=== PATIENT | male | born 1970 | race Caucasian/White ===

== ENCOUNTER → 2017-09-29 16:51 | Outpatient (CLI) | payer BC, SELFPAY ==
[2017-09-29 17:28] LABS: Absolute Lymphocyte Count 1.12 X10^3/ul (0.83-4.51); Absolute Neutrophil Count 4.7 X10^3/uL (2.0-7.7); Basophil# 0.04 X10^3/uL; Basophil% 0.6 % (0-1); Hematocrit 41.4 % (40-54); Hemoglobin 13.9 g/dl (13.0-16.5); Lymphocyte # 1.12 X10^3/ul (4.0); Lymphocyte % 17.9 % (19-41); Mean Corp Hgb Conc 33.6 g/gl (32-36); Mean Corpuscular Hgb 29.5 pg (27.0-32.0); Mean Corpuscular Volume 87.9 fL (80-94); Monocyte# 0.43 X10^3/uL; Monocyte% 6.9 % (0-10); Neutrophil # 4.66 X10^3/uL (2.7-7.7); Neutrophil % 74.4 % (47-70); Platelet Count 209 K/mm3 (150-450); RBC Distribution Width CV 13.5 % (11.6-14.6); Red Blood Count 4.71 M/mm3 (4.6-6.2); White Blood Count 6.3 K/mm3 (4.4-11.0)
[2017-09-29 17:36] LABS: POSITIVE COUNT NO; POSITIVE DIFFERENTIAL NO; POSITIVE MORPHOLOGY NO
[2017-09-29 18:04] LABS: AST(SGOT) 19 U/L (15-37); Alanine Aminotransfer ALT/SGPT 34 U/L (16-61); Albumin, Serum 4.1 g/dL (3.2-5.0); Alkaline Phosphatase 79 U/L (45-117); Bilirubin, Direct 0.07 mg/dL (0.00-0.30); Globulin 3.4 g/dL (2.2-4.2); Protein, Total 7.5 g/dL (6.4-8.2)
== END ==
PROVIDERS: Family Provider Family Medicine; PCP Family Medicine; Visit Provider Psychiatry & Neurology Neurology
DX: G40.909 Epilepsy, unspecified, not intractable, without status epilepticus (principal)
CPT/HCPCS: 36415; 80076; 85025

== ENCOUNTER → 2018-07-21 06:28 | Outpatient (CLI) | payer BC, SELFPAY ==
--- NOTE | 2018-07-21 12:38 | NEURO ---
NCS and/or EMG Patient Report Ordering Doctor: Ken Hills Jr. DATE OF SERVICE: 07/21/18 Ministerio Clark is a 48-year-old male presents for electrodiagnostic testing of the lower limbs. He reports progressively worsening numbness tingling and burning in both feet, worse on the right side. Electrodiagnostic findings: Right common peroneal motor nerve demonstrates prolonged distal latency with reduced amplitude and reduced conduction velocity. Left common peroneal motor nerve demonstrates prolonged distal latency with reduced amplitude and reduced conduction velocity. Tibial motor conduction velocity is reduced bilaterally. Sural nerve demonstrates prolonged distal latency bilaterally with reduced conduction velocity. Reduced superficial peroneal conduction velocity bilaterally. Plantar responses are absent. Prolonged H reflex bilaterally significant prolonged F waves bilaterally, more so on the right side. Needle EMG testing demonstrates no evidence of acute denervation with normal motor unit action potentials. Next Electrodiagnostic impression: This is an abnormal study in the lower limbs. 1. 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 Based on significantly reduced conduction velocities noted in both motor and sensory nerves, consideration may be given for [id number] type I based on evidence of demyelination. 2. No electrodiagnostic evidence for lumbosacral radiculopathy. If there are any further questions, please do not hesitate to contact me
--- NOTE | 2018-07-21 12:46 | NEURO_ITS ---
NCS and/or EMG Patient Report Ordering Doctor: Ken Hills Jr. DATE OF SERVICE: 07/21/18 Ministerio Clark is a 48-year-old male presents for electrodiagnostic testing of the lower limbs. He reports progressively worsening numbness tingling and burning in both feet, worse on the right side. Electrodiagnostic findings: Right common peroneal motor nerve demonstrates prolonged distal latency with reduced amplitude and reduced conduction velocity. Left common peroneal motor nerve demonstrates prolonged distal latency with reduced amplitude and reduced conduction velocity. Tibial motor conduction velocity is reduced bilaterally. Sural nerve demonstrates prolonged distal latency bilaterally with reduced conduction velocity. Reduced superficial peroneal conduction velocity bilaterally. Plantar responses are absent. Prolonged H reflex bilaterally significant prolonged F waves bilaterally, more so on the right side. Needle EMG testing demonstrates no evidence of acute denervation with normal motor unit action potentials. Next Electrodiagnostic impression: This is an abnormal study in the lower limbs. 1. 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 Based on significantly reduced conduction velocities noted in both motor and sensory nerves, consideration may be given for [id number] type I based on evidence of demyelination. 2. No electrodiagnostic evidence for lumbosacral radiculopathy. If there are any further questions, please do not hesitate to contact me
== END ==
PROVIDERS: Family Provider Family Medicine; PCP Family Medicine; Referring Provider Family Medicine; Visit Provider Family Medicine
DX: G62.9 Polyneuropathy, unspecified (principal)
CPT/HCPCS: 95886; 95912

== ENCOUNTER → 2018-10-05 16:26 | Outpatient (CLI) | payer BC, SELFPAY ==
[2018-10-05 17:25] LABS: Vitamin B12 554 pg/mL (211-911)
[2018-10-05 17:31] LABS: Homocysteine 11.1 umol/L (3.2-10.7)
[2018-10-07 15:55] LABS: Albumin 3.9 g/dL (2.9-4.4); Alpha-1-Globulins 0.2 g/dL (0.0-0.4); Alpha-2-Globulins 0.7 g/dL (0.4-1.0); Gamma Globulin 0.9 g/dL (0.4-1.8); Immunoglobulin G 930 mg/dL (700-1600); Immunoglobulin M 28 mg/dL (20-172); PROEL- TOTAL PROTEIN 6.5 g/dL (6.0-8.5)
[2018-10-08 12:31] LABS: Immunoglobulin A 41 mg/dL (90-386)
== END ==
PROVIDERS: Family Provider Family Medicine; PCP Family Medicine; Referring Provider Psychiatry & Neurology Neurology; Visit Provider Psychiatry & Neurology Neurology
DX: A69.22 Other neurologic disorders in Lyme disease (principal); G40.909 Epilepsy, unspecified, not intractable, without status epilepticus; Z68.34 Body mass index [BMI] 34.0-34.9, adult
CPT/HCPCS: 36415; 82607; 82746; 82784; 83090; 83921; 84165; 86334

== ENCOUNTER 2020-01-08 08:16 | Emergency (ER) | payer BC, SELFPAY ==
[2020-01-08 08:17] VITALS: BP 130/103; PULSE 109; RESP 17; TEMP 36.2; O2SAT 98; BMI 33.0
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
[2020-01-08 08:39] VITALS: BP 155/108; PULSE 97; RESP 18
[2020-01-08 08:40] VITALS: BP 155/108; PULSE 97; RESP 18; TEMP 36.2; O2SAT 98
== END 2020-01-08 08:57 | disposition home or self-care (01) ==
LOC: ED 08:46
PROVIDERS: Emergency Provider Emergency Medicine; PCP Family Medicine
DX: L03.211 Cellulitis of face (principal); K08.89 Other specified disorders of teeth and supporting structures
CPT/HCPCS: 99282

== ENCOUNTER 2020-02-02 12:38 | Emergency (ER) | payer BC, SELFPAY ==
[2020-02-02 12:40] VITALS: BP 157/118; PULSE 131; RESP 14; TEMP 37.3; O2SAT 98; BMI 32.8
--- NOTE | 2020-02-02 13:13 | ED.DCSUM_ITS ---
History of Present Illness Chief Complaint: Mental Health Informant: Patient Narrative: Patient presents for mental health evaluation. He reports that a month ago he found out that his has been cheating on him for the past 6 months. They are currently undergoing a divorce after being for 33 years. He states that he has not been able to eat or sleep. He is dropped 20 pounds. He reportedly was started on Prozac and a sleep aid a month ago by his PCP. His gmkhha-il-kgz came to check on him today and brought him to the emergency room. He denies being suicidal but states he does not know how to cope with this. - Past Medical History (1) Epilepsy Status: Chronic Past Medical History - Allergies and Home Meds Allergies/Adverse Reactions: Allergies ibuprofen [From Motrin] Allergy (Verified 02/02/20 12:40) Angioedema naproxen [From Naprosyn] Allergy (Verified 02/02/20 12:40) Angioedema Primary Care Physician: Tobias,Victoria [GROUP OF PHYSICIANS] - Prior records reviewed: Yes Surgical History: no surgical history Smoking Status: Former smoker Review of Systems General: Denies: Chills, Fever Eyes: Denies: Visual changes - bilaterally ENT: Denies: Bilateral ear pain Cardiovascular: Denies: Chest pain Respiratory: Denies: Dyspnea Gastrointestinal: Denies: Abdominal pain, Vomiting Skin: Denies: Wounds Neurological: Denies: Headache Psych: Reports: Depression, Anxiety. Denies: Suicidal thoughts Hematologic: Denies: Easy bruising, Easy bleeding Allergy: Denies: Uticaria Physical Exam Vital Signs/Narrative: Vital Signs Temp Pulse Resp BP Pulse Ox 02/02/20 12:40 99.2 F H 131 H 14 157/118 H 98 Inital Vital Signs reviewed: Yes General: Well nourished, Well developed Head: Normocephalic ENT: Moist mucous membranes Neck: Supple Cardiovascular: Regular rate, Regular rhythm Respiratory: No distress, CTA bilaterally Abdomen: Soft, Nontender Neurological: Alert, Oriented x3 Psychological: Tearful, Agitated, - - Patient denies suicidal or homicidal ideation. Diagnostic/Tx/Re-eval - Medical Decision Making Patient was seen by Al from social work. She spent significant time counseling with him. He does have an appointment at the counseling center in 20 minutes will be discharged so he can make that appointment. He continues to deny suicidal or homicidal ideation. He is in at least 2 different kinds of counseling currently. ED Disposition - Plan for ED Patient: Disposition: Home or Assisted Living Diagnosis: Anxiety Instructions: ED Stress React Referrals: Counseling,Center [GROUP OF PHYSICIANS] -
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
[2020-02-02 14:44] VITALS: BP 138/99; PULSE 96; RESP 16; O2SAT 96
== END 2020-02-02 14:46 | disposition home or self-care (01) ==
PROVIDERS: Emergency Provider Emergency Medicine; PCP Family Medicine
DX: F41.9 Anxiety disorder, unspecified (principal); Z87.891 Personal history of nicotine dependence
CPT/HCPCS: 99282

== ENCOUNTER 2020-10-15 09:00 | Outpatient (RCR) | payer BC, SELFPAY ==
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
--- NOTE | 2020-10-15 10:10 | BH.SGPN.GN ---
Behaviors/Verbalizations/Mental Status: [] Eye contact is good. Motor activity is appropriate. Appearance is neat. Speech is Appropriate. Mood is depressed. Affect is flat. Thoughts are linear and logical. No evidence of psychosis. Client Response/Progress/Benefit: [] Pt was an active participant in group discussion and activity. Attentive during psychoeducation. Pt and peers provided examples of pitfalls or setbacks that people can fall into which impact mental health which included; triggers, fear, cognitive distortions, isolating, self-pity, avoidance, and pushing support away. During experiential activity pt along with peers identified several other pitfalls associated with mental health which included; poor communication, assumptions, lack of awareness, negative self-talk, anger, personalizing, and ruminating. Benefited from group by increasing awareness of pitfalls which can impact mental health. Pt will continue in IOP to maintain safety, increase health coping skills, and improve functioning to return to work. Narrative Note: []
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
--- NOTE | 2020-10-15 12:39 | BH.MTP_ITS ---
[facility] Treatment Plan - Patient Information Program Physician:: Lauren Claros Primary Therapist:: Madan Martinez - Psychiatric Diagnoses Psychiatric Diagnoses:: MDD, F33.2 Diagnosis Code(s):: F33.2 - Estimated LOS Estimated LOS (in weeks):: 6 Problem/Goal #1 - Problem/Goal #1 Stated Goal:: Client will increase mood stability, reduce depression, and reduce suicidal thoughts due to MDD through the Intensive Outpatient Program as evidenced by reduction of scores on DSM-5 crossing cutting scales for depression. Description of Barriers: ongoing divorce proceedings, stressful work environment, limited support. Functional Impact: Fleeting suicidal ideations in the past year have led to several gestures and plans to kill self. Depression impacting work. - Objectives Objective #1 Stated Objective: Client will reduce depression, suicidal thinking, and impulsivity by identifying 2-3 triggers for mood changes and at least 3 ways to cope with these. Interventions: Through individual and group counseling will help client identify triggers and warning signs of depression and will teach client various coping skills to manage client?s symptoms and give client tangible resources to use to regulate emotions. Discharge Criteria: Identify 3 triggers to depressive episodes and 3 strategies to coping with these triggers. Target Date: 11/26/20 Review Date: 11/14/20 Objective #2 Stated Objective: Client will identify and replace 2-3 negative thinking patterns or mistaken beliefs that reinforce depressive symptoms, self-hate, and negative self-talk. Interventions: Through individual and group counseling will help client identify distorted, negative beliefs about self and replace with more realistic, affirmative messages. Therapist will use CBT to help client increase insight to the connection between thoughts, emotions, and behaviors. Therapist will encour age client to practice thought challenging. Discharge Criteria: Identify 2-3 core mistaken beliefs and be able to demonstrated how to challenge these beliefs. Target Date: 11/26/20 Review Date: 11/14/20 Problem/Goal #2 - Problem/Goal #2 Stated Goal:: Client will reduce overall frequency, intensity, and duration of anxiety to improve functioning as evidended by reduction of scores on DSM-5 Crosscutting scales for anxiety. Description of Barriers: ongoing divorce proceedings, stressful work environment, limited support. Functional Impact: Ruminations and impact toxic relationship with is one or the primary triggers to worsening anxiety and decreased functioning. - Objectives Objective #1 Stated Objective: Client will identify triggers to ruminations on past relationship and 2 strategies to effectively manage cognitive distortions which exacerbate ruminations. Interventions: Therapist will assist client in exploring what triggers anxiety and teach client coping strategies to effectively manage anxiety symptoms. Discharge Criteria: Will be aware of 2-3 triggers to ruminations and 2 str ategies to cope Target Date: 11/14/20 Review Date: 11/26/20
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
--- NOTE | 2020-10-16 09:00 | BH.SGPN.GN ---
Behaviors/Verbalizations/Mental Status: []Client alert and oriented, neatly dressed and groomed. Eye contact good. Motor activity appropriate. Speech within normal limits. Affect constricted, mood depressed. Thoughts linear, logical, no signs of hallucinations or delusions. Reviewed client?s symptom tracker, no risk for suicidal ideation, plan, or intent as of 10/16/20 Client Response/Progress/Benefit: []Client responded well to session, attentive and receptive to feedback. Client reports feeling anxious this morning. Client shared he has a goal to go to [employer] this afternoon which gives client anxiety, but client recognizes it is good for him to go. Client stated not much has changed since his first day, but he believes IOP will be helpful. Client reported that he practiced self-care yesterday by taking a nap. Client describes himself as a workaholic so taking a nap is positive for client. Receptive to feedback and positive support from peers. Appeared to benefit from connecting with others and reflecting on self-care. Progress limited as client recently started IOP. Will continue IOP tx to prevent decompensation, increase healthy coping skills, and improve daily functioning. Narrative Note: []
--- NOTE | 2020-10-16 10:05 | BH.SGPN.GN ---
Behaviors/Verbalizations/Mental Status: [] Eye contact is good. Motor activity is appropriate. Appearance is casual. Speech is Appropriate. Mood is depressed. Affect is flat. Thoughts are linear and logical. No evidence of psychosis. Client Response/Progress/Benefit: [] Pt was an active participant in group discussion and activity. Attentive during psychoeducation. Group identified the benefits of making changes or taking action on their mental wellness which included; increased confidence, healthier relationships, improved emotional health, reduction of anxiety, increased awareness, and improved recognition of triggers. Pt stated that the 3 biggest obstacles for him to taking action or making changes in his life are anger, being passive, and worry. Increased awareness of importance of taking action in mental health and obstacles that keep them from taking action. Will continue in IOP to maintain safety, increase health coping skills, and improve functioning to return to work. Narrative Note: []
--- NOTE | 2020-10-16 11:10 | BH.SGPN.GN ---
Behaviors/Verbalizations/Mental Status: []Client alert and oriented, casually dressed and appropriately groomed. Eye contact good. Motor activity appropriate. Speech within normal limits. Affect constricted, mood depressed. Thoughts linear, logical, no signs of hallucinations or delusions. Client Response/Progress/Benefit: []Client responded well to session, taking notes and participating in worksheet discussion. Client set a goal to gain control over his hyperfocus on blaming. Client wants to be able to work on this by learning how to have self-forgiveness and how to forgive others. Client stated he believes starting to journal and talk with his best friend are things that can help him accomplish this goal. Worked with group to brainstorm ideas to help increase follow through of goal. Appeared to benefit from identifying a small goal to benefit mental health. Will continue IOP tx to prevent decompensation, increase healthy coping skills, and improve daily functioning. Narrative Note: []
--- NOTE | 2020-10-17 10:05 | BH.SGPN.GN ---
Behaviors/Verbalizations/Mental Status: []Eye contact is fair. Motor activity is appropriate. Appearance is casual. Speech is Appropriate. Mood is euthymic. Affect is congruent. Thoughts are linear and logical. No evidence of psychosis. Client Response/Progress/Benefit: []Pt was an engaged participant in group discussions. Attentive during psycho-education on 4 types of conflict styles (Competing, Collaborating, Avoiding, and Accommodating). Worked with group to define conflict and identify how conflict is helpful; (allows us to grow, helps us stand up for ourselves, empowers us, helps clarify, and helps us gain clarification). With peers identified what prevents them from addressing or managing conflict which included: emotions, past experiences, fear, upbringing, what ifs, and worried how other person will react. Pt believes his conflict style is accommodating the drawbacks being needs don't get met and lowers self-esteem. Benefited from group due to increase insight and awareness of conflict, conflict styles, and obstacles to managing conflict. Pt to continue IOP to increase healthy coping, improve daily functioning and prevent decompensation. Narrative Note: []
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
[2020-10-17 10:40] VITALS: BP 132/93; PULSE 67
--- NOTE | 2020-10-17 11:08 | BH.SGPN.GN ---
Behaviors/Verbalizations/Mental Status: []Client alert and oriented, neatly dressed and groomed. Eye contact good. Motor activity appropriate. Speech within normal limits. Affect constricted, mood dysthymic. Thoughts linear, logical, no signs of hallucinations or delusions. Client Response/Progress/Benefit: []Client engaged in session AEB contributing to discussion and engaging in activity. Client did well to review current conflict style and its impact on mental health. Attentive and taking notes during discussion on strategies for more effectively managing conflict in own life. Client identified wanting to work on not avoiding conflict as this has had long-term negative impacts on client. Client wants to do this by working on not ?stonewalling? or shutting down during conflict. Appeared to benefit from learning strategies to better manage conflict. First week of IOP tx. Will continue IOP tx to prevent decompensation, learn healthy coping skills, and increase self-awareness. Narrative Note: []
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
--- NOTE | 2020-10-17 13:42 | BH.DR.ITP ---
Initial Treatment Plan Patient Information Visit Information: ADMISSION DATE: EXPECTED LOS: 4-6 weeks Problems/Symptoms Problem #1:: Depression Symptom:: Sadness, hopelessness, worthlessness, anhedonia, biological disruption of appetite and sleep, low energy, decreased concentration, passive thoughts of and passive suicidal ideation. Problem #2:: Anxiety Symptom:: Worry, rumination, panic attacks
--- NOTE | 2020-10-22 09:05 | BH.SGPN.GN ---
Behaviors/Verbalizations/Mental Status: []Client alert and oriented,neat and casually dressed and groomed. Eye contact good. Motor activity appropriate. Speech within normal limits. Affect congruent, mood depressed and anxious. Thoughts linear, logical, no signs of hallucinations or delusions. Reviewed client?s symptom tracker, no indication of suicidal ideation, plan, or intent as of this date, 10/22/20. Client Response/Progress/Benefit: []Client responded well to session, attentive and proving some input throughout, willing to process with group. Client reports feeling happy this morning. Client noted current positives include spending time with family at a cookout over the weekend and being able to reach out to his mother regarding his mental health. Discussed that although his mother is not the most understanding regarding mental health, he is glad he reached out as normally he would not. Client went on to describe current stressor as his son?s drinking behaviors and difficulties with relying on work as his only means of coping. Expressed wanting to work on improving ability to practice self-care and relaxing. Appeared to benefit from reflecting on personal positives and areas of progress, as well as the supportive group environment. Will continue IOP tx to promote skill application, continue to improve sx management, and prevent decompensation. Narrative Note: []
--- NOTE | 2020-10-22 11:15 | BH.SGPN.GN ---
Behaviors/Verbalizations/Mental Status: []Client alert and oriented, neatly dressed and groomed. Eye contact good. Motor activity appropriate. Speech within normal limits. Affect constricted, mood dysthymic. Thoughts linear, logical, no signs of hallucinations or delusions Client Response/Progress/Benefit: []Client responded well to session, taking notes and contributing throughout. Group discussed the different categories of coping skills which included distraction, emotional release, grounding, self-love, and thought challenging. Client participated in creating a coping skills ?menu? from the five categories of coping skills. Client's coping skill menu included: reading, journaling, saying positive mantras, personal hygiene, and using a thought log. Appeared to benefit from increasing repertoire of healthy coping skills. Will continue tx to prevent decompensation, increase knowledge of healthy coping skills, and combat distorted thought patterns. Narrative Note: []
--- NOTE | 2020-10-24 09:05 | BH.SGPN.GN ---
Behaviors/Verbalizations/Mental Status: [] Eye contact is good. Motor activity is appropriate. Appearance is neat. Speech is Appropriate. Mood is euthymic. Affect is full. Thoughts are linear and logical. No evidence of psychosis. Reviewed daily check in sheet and no reports of suicidal ideations or intent. Client Response/Progress/Benefit: [] Pt participated when prompted. Attentive. Daily symptom tracker notes /5 for anger and anxiety. Emotion for today is happy. Shared that he overslept yesterday and did not make it to IOP. Shared that despite that he was very productive and worked on tasks throughout the day. He noted that he was left alone with his thoughts which has a tendency to be negative however yesterday he was able to reframe and challenge certain negative automatic thoughts. States I know I'm not responsible for everything that went wrong. Progress noted per pt report as he is beginning to challenge long-held mistaken beliefs and not accept them as facts. Benefited from group support and encouragement. Will continue in IOP to maintain safety, increase healthy coping, and improve functioning to return to work. Narrative Note: []
--- NOTE | 2020-10-24 10:15 | BH.SGPN.GN ---
Behaviors/Verbalizations/Mental Status: []Eye contact is good. Motor activity is appropriate. Appearance is casual. Speech is Appropriate. Mood is depressed, agitated. Affect is congruent. Thoughts are linear and logical. No evidence of psychosis. Client Response/Progress/Benefit: [] Pt was an active participant in group discussion AEB taking notes and providing input throughout. Attentive during psychoeducation reviewing internal and external obstacles, nodded at times and expressed connecting with externalization as avoiding dealing with internal barriers. Participated in the reflection activity in which clients ana pictures depicting their current and desired reality and shared with the group. Current reality involved feeling lonely, betrayed, hurt, angry, and confused. Shared he is trying to challenge himself to trust people again but is feeling too jaded to successfully do so thus far. Indicated that his desired reality involves being more willing to use the supports and resources he has. As well as learn to love himself and better accept his mental health struggles so he can address and cope with them. Identified skills that would help move from current to desired realities would be challenging his self-talk. Benefited from group by increasing current awareness and expectations for progress. Will continue in IOP to improve mood stability, continue to promote healthy change behaviors, and further improve self-love/acceptance. Narrative Note: []
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
--- NOTE | 2020-10-25 09:00 | BH.SGPN.GN ---
Behaviors/Verbalizations/Mental Status: [] Eye contact is good. Motor activity is appropriate. Appearance is neat. Speech is Appropriate. Mood is depressed. Affect is flat. Thoughts are linear and logical. No evidence of psychosis. Reviewed daily check in sheet and no reports of suicidal ideations or intent. Client Response/Progress/Benefit: [] Pt participated at times during the group discussion on the role of enchantment in mental health. Attentive. Emotion for today is anxious. No specific trigger. Reports that group yesterday on current reality vs. desired reality was really eye-opening for him. It helped him better understand his current mental health and where he hopes to be. Shared that he is begining to utilize self-care more and is learning some helpful skills to help with his negative automatic thoughts. Hopeful however still ruminating extensively and feeling guilty about the past. Progress noted per pt report. Will continue in IOP to maintain safety, stabilize mood, and improve functioning to return to work. Narrative Note: []
--- NOTE | 2020-10-25 10:15 | BH.SGPN.GN ---
Behaviors/Verbalizations/Mental Status: []Client alert and oriented, casual dress, hygiene tended to. Eye contact fair. Motor activity appropriate. Speech within normal limits. Affect congruent. Mood euthymic. Thoughts linear, logical, no signs of hallucinations or delusions. Client Response/Progress/Benefit: []Pt responded well to session AEB engaging in group discussion and listened attentively to others. Pt assisted group with identifying benefits of emotional health which included: improved relationships, increased patience, improved regulation, and improved communication. Pt engaged in discussion about barriers of improving emotional wellness. Pt stated if put negatives in your life like eating poorly, not exercising, reading the news can negatively impact emotional wellness. Seemed to benefit from increased awareness of importance of improving emotional wellness. Pt to continue IOP to continue use of healthy coping, challenge distorted thoughts and prevent decompensation. Narrative Note: []
--- NOTE | 2020-10-25 11:16 | BH.SGPN.GN ---
Behaviors/Verbalizations/Mental Status: Client alert and oriented, casually dressed and groomed. Eye contact good. Motor activity appropriate. Speech within normal limits. Affect congruent, mood agitated and depressed. Thoughts linear, logical, no signs of hallucinations or delusions. Client Response/Progress/Benefit: [] Client responded well to session, attentive AEB contributing at times and taking notes throughout. Client engaged in the discussion reviewing the ?10 Villanueva TIPS for Emotional Wellness?. Client worked within a smaller group to identify how each tip could aid in supporting personal emotional wellness and come up with ways to practice each of the tips reviewed. Client shared connecting with the emotional wellness trait of surround yourself with positive people and positive thoughts, sharing that he has struggled with the emotional impacts of toxic people in the past. Client noted struggling to find healthy supports. Expressed he would like to further work on the emotion wellness trait ?surround yourself with positive thoughts and people? in order to improve his perspective, reduce depression, and continue to make progress in improving mood stability. Expressed he can practice doing so by continuing to work on thought challenging and attending IOP tx. Client to continue IOP tx to prevent decompensation, improve sx management, and promote application of healthy coping skills. Narrative Note: []
--- NOTE | 2020-10-29 09:05 | BH.SGPN.GN ---
Behaviors/Verbalizations/Mental Status: [] Eye contact is good. Motor activity is appropriate. Appearance is neat. Speech is Appropriate. Mood is depressed. Affect is flat. Thoughts are linear and logical. No evidence of psychosis. Reviewed daily check in sheet and no reports of suicidal ideations or intent. Client Response/Progress/Benefit: [] Pt participated when prompted. Attentive. Emotion for today is hopeful. Mental health win involved spending yesterday with his children. Shared that he struggled this past weekend and slept to coping and escape. Stressors include some unsupportive statements from family that nothing is wrong with him and just get over it. Also received calls from co-workers who were asking personal questions about his leave and urging him to return to work. This made him feel more guilty. States that overwhelming stressors led to isolation which triggered ruminating thoughts about an event that occurred last Father's day involving his . My memory of the event was so vivid it was like I was actually there again. Group provided feedback on managing negative memories which was beneficial. Limited progress noted over the weekend. Will continue in IOP to maintain safety, increase healthy coping, and improve functioning to return to work. Narrative Note: []
--- NOTE | 2020-10-29 10:15 | BH.SGPN.GN ---
Behaviors/Verbalizations/Mental Status: []Client alert and orient. Appearance casual and appropriately groomed. Speech an appropriate rate and tone. Motor activity WNL. Mood dysthymic, affect constricted. No evidence of delusion or hallucinations.? Client Response/Progress/Benefit: []Client responded well to session, attentive and contributing to discussion. Group discussed potential barriers to communication including: yelling, name-calling, unmanaged emotions, facial expressions, and shutting down. Helped group identified positives of having effective communication skills. Client reported using healthy communication can help decrease unnecessary conflict. Attentive during psychoeducation on the four communication styles. Client reported she most often uses passive communication style. Able to recognize negative outcomes of communication style. Seemed to benefit from increased awareness of the different communication styles and identify personal communication style. Client to continue in IOP tx to reduce negative thoughts, increase mood stability, and improve daily functioning.
--- NOTE | 2020-10-29 11:18 | BH.SGPN.GN ---
Behaviors/Verbalizations/Mental Status: []Client alert and oriented, casually dressed and groomed. Eye contact good. Motor activity appropriate. Speech within normal limits. Affect congruent, mood depressed, agitated. Thoughts linear, logical, no signs of hallucinations or delusions. Client Response/Progress/Benefit: []Client engaged participant AEB attentiveness during discussion, taking notes throughout, and asking questions as well as providing input. Client stated he struggles with each of the communication styles depending upon the situation. Noted that he has most been impacted by passive communication as it resulted in a continued cycle of depression. Attentive during psychoeducation about DEAR MAN (Describe, Express, Assert, Reinforce, Mindfulness, Appear confident, Negotiate) interpersonal communication skill. Client identified communication goal is to improve assertiveness by focusing on the skill of Assert by more actively sharing with others his boundaries and advocating for his needs. Discussed this is out of what his typical comfort zone has been. Client seemed to benefit from increased insight into how personal communication style impacts mental health and relationships. Client progress variable as he continues to struggle with resentment and ruminating on past experiences that continue to impede mental health progress. Will continue IOP tx to continue to promote healthy change behaviors and prevent decompensation. Narrative Note: []
--- NOTE | 2020-10-30 09:05 | BH.SGPN.GN ---
Behaviors/Verbalizations/Mental Status: [] Eye contact is good. Motor activity is appropriate. Appearance is neat. Speech is Appropriate. Mood is depressed. Affect is flat. Thoughts are linear and logical. No evidence of psychosis. Reviewed daily check in sheet and no reports of suicidal ideations or intent. Client Response/Progress/Benefit: [] Pt participated at times during group discussion. Attentive. Emotion for today is optimistic. States I've been resting a lot. Mental health win was going for a walk with his son. Increased rumination regarding previous relationship. Also reports nightmares related to past relationship. Reports extremely vivid memories and flashbacks of past relationship which significantly impact his thoughts and emotions. Struggling to manage and decrease the impact of these on his mental health. Pt reports some progress. Benefited from group feedback on dream journaling and managing triggers. Will continue in IOP to maintain safety, increase health coping, and improve functioning to return to work. Narrative Note: []
--- NOTE | 2020-10-30 11:13 | BH.SGPN.GN ---
Behaviors/Verbalizations/Mental Status: []Eye contact is good. Motor activity is appropriate. Appearance is casual. Speech is Appropriate. Mood is depressed, agitated. Affect is congruent. Thoughts are linear and logical. No evidence of psychosis. Client Response/Progress/Benefit: []Pt was an active participant AEB attentiveness, and provided input during discussion, and participation in activity. Contributed to group discussion on benefits and examples of healthily social supports. Indicated ?I have not had a support system at all times and it puts you in a bad place of isolation, bad thoughts, ect. You can really go down a rabbit hole.?. Group noted benefits of strong social supports as: provides encouragement, hold us accountable, different perspective, and tangible resources. Client attentive throughout discussion on barriers to using support system. Identified a personal barrier to using supports as isolating himself and not sharing when emotional needs are not met. Able to see the impact of support and its benefits during activity and challenges of accomplishing tasks w/o proper support. Benefited from awareness of barriers to support as well as importance of support in mental health wellness. Will continue IOP tx to continue to improve thought challenge skills, improve mood stability, and prevent decompensation. Narrative Note: []
--- NOTE | 2020-10-30 11:13 | BH.SGPN.GN ---
Behaviors/Verbalizations/Mental Status: []Client alert and oriented, neatly dressed and groomed. Eye contact good. Motor activity appropriate. Speech within normal limits. Affect constricted, mood euthymic. Thoughts linear, logical, no signs of hallucinations or delusions. Client Response/Progress/Benefit: []Client an active participant throughout AEB contributing to discussion and taking notes. Client participated in the group activity highlighting the various barriers to effectively utilizing supports and strategies the group used. Client participated in discussion of the four types of support (emotion, tangible, informational, and social/peer) and the group listed examples for all types. Client reports wanting to work on increasing peer support as client feels this will help client cope better and not ?spiral down.? Client plans to do this by using opposite action to reach out when he is struggling, making plans with friends, and taking a small road trip. Client seemed to benefit from identifying the type of support client wants to improve. Will continue IOP tx to prevent decompensation, increase healthy supports, and improve daily functioning. Narrative Note: []
--- NOTE | 2020-10-31 10:16 | BH.SGPN.GN ---
Behaviors/Verbalizations/Mental Status: []Eye contact is good. Motor activity is appropriate. Appearance is appropriate, casual. Speech is Appropriate. Mood is depressed, agitated. Affect is congruent. Thoughts are linear and logical. No evidence of psychosis. Client Response/Progress/Benefit: [] Client was an active participant AEB attentiveness, taking notes, and contributing throughout. Client attentive during group discussion reviewing the importance of addressing and learning to cope with anxiety. Attentive during psychoeducation on different types of anxiety disorders. Engaged as group worked to describe anxiety as well as the impact of anxiety unmanaged anxiety on daily functioning. Client shared ?If im anxious talking in front of people, the more I avoid it then the more anxious I will get about doing it moving forward?. Worked with group to identify common physical symptoms of anxiety and noted personal anxiety symptoms to include: weight gain/loss, chest pain, crying, chronic fatigue, grinding teeth, and insomnia. Worked with group to identify safety behaviors which included: chewing tobacco, going on dating sites, and avoiding social situations. Benefited from increased insight and awareness from group discussions. Will continue in IOP to improve mood stability, prevent decompensation, and improve consistent skill application. Narrative Note: []
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
--- NOTE | 2020-11-05 09:10 | BH.SGPN.GN ---
Behaviors/Verbalizations/Mental Status: [] Eye contact is good. Motor activity is appropriate. Appearance is casual. Speech is Appropriate. Mood is anxious. Affect is congruent. Thoughts are linear and logical. No evidence of psychosis. Reviewed daily check in sheet and no reports of suicidal ideations or intent. Client Response/Progress/Benefit: [] Pt was an active participant in group discussion on role of gaslighting on mental health. Pt shared several examples of gaslighting that have occurred to him in the past several years. Attentive. Daily symptom tracker notes 07/13 for anxiety and anger. Shared that he had a significant panic attacks yesterday which lasted for about an hour. Could not identify any trigger to the attack. Utilized skills which did help. Pt states I felt like everything was closing in. This occurred while he was at [employer]. Identify mental health wins over the weekend. Emotion for today is conflicted. Benefited from group support, encouragement, and feedback. Will continue in IOP to maintain safety, increase healthy coping, and to improve functioning to return to work. Narrative Note: []
--- NOTE | 2020-11-05 10:12 | BH.SGPN.GN ---
Behaviors/Verbalizations/Mental Status: []Eye contact is good. Motor activity is appropriate. Appearance is casual. Speech is Appropriate. Mood is agitated and depressed. Affect is congruent. Thoughts are linear and logical. No evidence of psychosis. Client Response/Progress/Benefit: [] Client was an active participant AEB providing input and feedback to peers, taking notes, as well as contributing during activity. Attentive during psychoeducation on managing change and worked with peers to identify common emotions (both positive and negative) associated with change. Client shared that learning how to respond well to stress is important in managing mental health. Group discussed the potential benefits to making changes such as; personal growth, motivation to continue making changes, improved mental health, and new opportunities. Client remained engaged and contributed as group worked to identify some obstacles to making changes which included; low motivation, negative feedback from supports, fear of failure, fear of not maintaining change once it?s made, and fear of other?s opinions. Client shared that past negative experiences have made him skeptical of change. Benefited from group by increasing awareness of emotions and obstacles associated with making changes. Will continue in IOP to prevent decompensation, improve symptom management, and promote healthy change behaviors. Narrative Note: []
--- NOTE | 2020-11-05 11:14 | BH.SGPN.GN ---
Behaviors/Verbalizations/Mental Status: []Client alert and oriented, casually dressed and groomed. Eye contact good. Motor activity appropriate. Speech within normal limits. Affect constricted. Mood dysthymic. Thoughts linear, logic. No evidence of hallucinations or delusions. Client Response/Progress/Benefit: []Client was an active participant, contributing to discussion and participating in the activity. Client participated during discussion and psychoeducation on the stages of change. Client states he wants to work on reducing negative self-talk and client believes he is in stage 2.5. Client thinks this because he recognizes he needs to make change and he has taken some steps, but client has not been able to challenge negative self-talk. Client?s small goal is to write out five positive affirmations each day. Appeared to benefit from reflecting on the stages of change client is currently in and creating a small goal. Will continue IOP tx to prevent decompensation, further increase healthy coping skills, and improve mood daily functioning. Narrative Note: []
--- NOTE | 2020-11-06 09:01 | BH.SGPN.GN ---
Behaviors/Verbalizations/Mental Status: []Client alert and oriented, casually dressed and groomed. Eye contact good. Motor activity appropriate. Speech within normal limits. Affect congruent, mood euthymic. Thoughts linear, logical, no signs of hallucinations or delusions. Reviewed client?s symptom tracker, no risk for suicidal ideation, plan, or intent as of 11/06/20. Client Response/Progress/Benefit: []Client responded well to session, attentive, making jokes, and contributing to discussion. Client reports feeling content this morning. Attributes this to being able to successfully manage anxious thoughts the previous date and expressed not experiencing any panic as a result. Client shared allowing himself to take breaks and continuing to attend IOP group as major contributing factors. Discussed that he has a few tasks outside he would like to complete today and is working on accomplishing his small goals of reminding himself ?don?t believe everything other?s tell you?. Continues to struggle with ruminating on ex- which reinforces agitation and depression. Appeared to benefit from connecting with peers and reflecting on wins. Will continue IOP tx to promote gains, further improve mood stability, and reinforce healthy coping skills. Narrative Note: []
--- NOTE | 2020-11-06 10:05 | BH.SGPN.GN ---
Behaviors/Verbalizations/Mental Status: []Client alert and oriented, neatly dressed and groomed. Eye contact good. Motor activity appropriate. Speech within normal limits. Affect congruent, mood euthymic. Thoughts linear, logical, no signs of hallucinations or delusions. Client Response/Progress/Benefit: []Pt was an active participant in group discussion. Pt reported ?you?re likely to have a setback, so it?s important to reflect on wins.? Attentive during psychoeducation. Along with peers pt was able to provide insight on the importance of goal-setting. Group identified that goals are important because they motivate, increase self-esteem, and are needed to have progress. Group also worked together to identify barriers to goal-setting which included; negative self-talk, not having supportive people, minimizing progress, and toxic people. Pt putting others? needs before their own also is a barrier to setting goals. Benefited from increased awareness of benefits and barriers to goal-setting. Pt will continue in IOP to promote the use of healthy coping skills, improve emotional regulation, and reduce negative self-talk. Narrative Note: []
--- NOTE | 2020-11-06 11:10 | BH.SGPN.GN ---
Behaviors/Verbalizations/Mental Status: []Eye contact is good. Motor activity is appropriate. Appearance is casual. Speech is Appropriate. Mood is anxious. Affect is constricted. Thoughts are linear and logical. No evidence of psychosis. Client Response/Progress/Benefit: []Pt was an active participant in group discussions and activities. Along with group members was able to identify barriers during group beach ball activity and strategies they utilized to overcome these barriers (communicating, encouraging others). Able to identify a SMART goal for the next week which was to take a walk three times a week for an hour. Pt reported this goal can help relieve stress and anxiety. Pt was able to identify barriers and obstacles to these goals and strategies to overcome these barriers. Benefited from group by being able to utilize SMART educate to create a goal. Narrative Note: []
--- NOTE | 2020-11-07 10:15 | BH.SGPN.GN ---
Behaviors/Verbalizations/Mental Status: [] Eye contact is good. Motor activity is appropriate. Appearance is neat. Speech is Appropriate. Mood is anxious. Affect is congruent. Thoughts are linear and logical. No evidence of psychosis. Client Response/Progress/Benefit: [] Pt was an active participant in group discussion and activity. Attentive during psychoeducation. Patients worked together to provide insights on what fear of failure is to them. Pt along with peers were able to identify the negative impact of fear of failure which can lead to; no growth, distorted beliefs, missing opportunities, unrealistic expectations, comparing self to others, isolation, depression, anxiety, and fear of trying. Pt was engaged in group activity and was able to verbalize how fearing failure in the experiential task impacted her mood and decision-making. Benefited from increased awareness of the negative impact of fear of failure can have on mental health and progress. Will continue in IOP to maintain safety, improve functioning to return to work, and decrease intrusive thoughts. . Narrative Note: []
--- NOTE | 2020-11-07 11:14 | BH.SGPN.GN ---
Behaviors/Verbalizations/Mental Status: []Client alert and oriented, casually dressed and groomed. Eye contact good. Motor activity WNL. Speech within normal limits. Affect congruent, mood euthymic. Thoughts linear, logical, no signs of hallucinations or delusions. Client Response/Progress/Benefit: []Client responded well to session, engaged and actively participating throughout. Client completed the fear of failure worksheet and reported that fear of failure has kept client from being alone. Client able to identify thoughts and behaviors that reinforce personal fear of failure which included: distorted thoughts of self, past failures, inherited fears, and telling himself ?my life will never be the same.? Client attentive during discussion of the different strategies to help overcome fear of failure. Identified wanting to work on challenging mind-reading by reminding himself to not make assumptions about others. Client appeared to benefit from learning ways to overcome fear of failure. Will continue IOP tx to prevent decompensation, learn healthy coping skills, and reduce negative self-talk. Narrative Note: []
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
== END 2020-11-07 23:59 ==
LOC: BHIOP 09:00
PROVIDERS: Referring Provider Psychiatry & Neurology Psychiatry; Visit Provider Psychiatry & Neurology Psychiatry
DX: F33.2 Major depressive disorder, recurrent severe without psychotic features (principal); F41.0 Panic disorder [episodic paroxysmal anxiety]; F43.10 Post-traumatic stress disorder, unspecified; G40.909 Epilepsy, unspecified, not intractable, without status epilepticus; G62.9 Polyneuropathy, unspecified; Z79.899 Other long term (current) drug therapy
CPT/HCPCS: S9480; 90834; 90837; 90853

== ENCOUNTER 2020-11-08 08:27 | Outpatient (RCR) | payer BC, SELFPAY ==
[2020-11-08 00:32] VITALS: BP 132/93; PULSE 67
--- NOTE | 2020-11-13 09:05 | BH.SGPN.GN ---
Behaviors/Verbalizations/Mental Status: [] Pt eye contact good, casually dressed, motor activity appropriate, speech normal rate and tone, mood euthymic, congruent affect, thoughts linear and intact, no evidence of delusions or hallucinations. Reviewed client?s symptom tracker, no signs of suicidal ideation, plan, or intent as of today. Client Response/Progress/Benefit: []Pt engaged participant AEB listening attentively to others and sharing thoughts and feelings. Pt identified the family member he is living with to be a significant stressor because this person often brings up the past. Pt stated he is trying to focus on the present by focusing on what is in his control but this family member often will want to talk about what happened in the past. Pt reported he is trying to limit interaction with this family member because the boundaries he had try to set before are not respected. Identified mental health positive as cleaning and detailing his truck. Additional positive as spending time with friends over the weekend. Seemed to benefit from expressing thoughts and feelings. To continue IOP to help with transition back to work, maintain gains and prevent decompensation. Narrative Note: []
--- NOTE | 2020-11-13 11:15 | BH.SGPN.GN ---
Behaviors/Verbalizations/Mental Status: []Client alert and oriented, neatly dressed and groomed. Eye contact good. Motor activity appropriate. Speech within normal limits. Affect constricted, mood euthymic. Thoughts linear, logical, no signs of hallucinations or delusions. Client Response/Progress/Benefit: []Pt engaged participant AEB pt providing input throughout session, listening attentively to peers and completing strengths exploration handout. Pt identified personal strengths such open-mindedness, forgiveness, and honesty. Pt stated these strengths will help pt?s mental health recovery sharing ?being honest with myself and others is what helped me get to IOP.? Pt also reports he is more understanding and empathetic to others. Pt seemed to benefit from increased awareness of personal strengths and improved understanding how perspective can impact view of self. Pt also attentive while group identified coping skills to increase recognition of strengths. Pt is to continue IOP tx to improve daily functioning which will help client return to work. Narrative Note: []
--- NOTE | 2020-11-14 09:00 | BH.SGPN.GN ---
Behaviors/Verbalizations/Mental Status: []Client alert and oriented, casually dressed and groomed. Eye contact good. Motor activity appropriate. Speech within normal limits. Affect constricted, mood irritable. Thoughts linear, logical, no signs of hallucinations or delusions. Reviewed client?s symptom tracker, no risk for suicidal ideation, plan, or intent as of 11/14/20 Client Response/Progress/Benefit: C[] Client responded well to session, attentive and engaged. Client reports feeling irritable, but I don't know why this morning. Group normalized this for client and discussed the importance of riding the wave versus ruminating on the why. Client shared he has been engaging in more healthy coping skills recently such as gardening, watching videos by Angelic Hughes, and taking drives around town. Client stated gardening yesterday reduced stress. Appeared to benefit from normalizing his emotions and reflecting on application of skills. Progress noted in client's increased self-awareness and he can continue to benefit from thought challenging. Will continue IOP tx to promote use of healthy coping skills, reduce negative self-talk, and improve work-related functioning. Narrative Note: []
--- NOTE | 2020-11-14 13:07 | BH.TPR ---
Treatment Plan Review Date of Admission:: 10/15/20 Date of Treatment Plan Review:: 11/14/20 Admitting Diagnoses:: MDD F33.2 Current Diagnoses:: MDD F33.2 Patient's Response to Treatment:: Consistent and engaged in treatment. Participates in group and reports being able to utilize skills outside of program. Medication compliant. Responding well to treatment Status of Current Problems and Symptoms: Completed DSM crossing-cutting scales which note an overall 20% decrease in symptoms. 57% decrease on depression scales. 14% decrease on anxiety scales. No suicidal thoughts in the past 2 weeks. Depression is stabilizing. Anxiety has increased in the past week due primarily to distress regarding returning to work. Ruminations. Panic. Problem #1 Problem Name:: Depression Status of Goals:: Obj 1.- in process. Identifies triggers and some ways to cope however struggles with negative self-talk which gets in the way of utilizing skills. Primary trigger to depressive thinking is ruminations on relationship with . Ob2- completed Team Recommendations:: Continue with current plan for depression. Increase awareness of warning signs. Problem #2 Problem Name:: Anxiety Status of Goals:: Obj 1- Has made progress in depression however recently reported to therapist significant anxiety related to returning to work. This resulted in pushing return to work date as he feels unprepared and significantly in distress about confrontations with boss Team Recommendations:: Develop a concrete plan to manage anxiety related to returning to work.
--- NOTE | 2020-11-14 15:22 | BH.MDN ---
Multi-Disciplinary Note - Note 60-min Individual Time Started:: 10:10 Date: 11/14/20 Purpose of session/treatment goals addressed:: Reviewed current symptoms and progress in IOP. 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 Also would include skills to utilize during the workday and after. Client Response:: Pt reports significant anxiety primarily related to plan to return to work on reduced schedule next week. I'm not ready. Able to identify reasons for not being ready and increased distress. 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 He brought this up to HR and states they were dismissive. Feels he has limited support for his concerns. Open to discussion on managing difficult people and we developed some strategies. Plan is to discuss with treatment team with possible 1 week extension of FMLA. Pt reports that he continues to see progress regarding his depression. No suicidal thoughts in the past 2 weeks. Able to challenge negative thoughts and cognitive distortions. In weeks prior would blame himself for what occurred in his marriage as well as trauma as a child however able to blame himself less which impacts mental wellness. Risks/Concerns:: none reported Progress Toward Goals/Plan:: Overall progress noted in IOP. DSM outcome scales indicate an overall 20% reduction in symptoms since starting IOP. 57% decrease on depression scales. 14% decrease on anxiety scales. No suicidal thoughts in the past 2 weeks. Depression is stabilizing. Anxiety has increased in the past week due primarily to distress regarding returning to work. Ruminations. Panic. 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 Time Stopped:: 11:10
--- NOTE | 2020-11-15 09:05 | BH.SGPN.GN ---
Behaviors/Verbalizations/Mental Status: [] Eye contact is good. Motor activity is appropriate. Appearance is neat. Speech is Appropriate. Mood is anxious. Affect is congruent. Thoughts are linear and logical. No evidence of psychosis. Reviewed daily check in sheet and no reports of suicidal ideations or intent. Client Response/Progress/Benefit: [] Pt was an active participant in group discussion. Attentive. Provided appropriate feedback. Emotion for today is Hopeful. Daily symptom tracker noted 2/5 for anxiety and depression and 3/5 for irritability. Stated not much new since yesterday. Utilized yesterday to relax and chill. He shared several stressors that had occurred yesterday. Was able to utilize reframing and thought challenging skills stating I turned the negatives around which was beneficial to his mental wellness. He is looking forward to this weekend and plans to spend some time with positive support out of town. Benefited from group support, encouragement, and feedback. Progress noted per pt report. Will continue in IOP to maintain gains, develop strategies to manage stress/anxiety with transition back to work. Narrative Note: []
--- NOTE | 2020-11-15 10:10 | BH.SGPN.GN ---
Behaviors/Verbalizations/Mental Status: [] Client alert and oriented, casually dressed and groomed. Eye contact good. Motor activity appropriate. Speech within normal limits. Affect congruent, mood dysthymic and agitated. Thoughts linear, logical, no signs of hallucinations or delusions. Client Response/Progress/Benefit: [] Pt was an attentive participant in group discussion AEB actively listening, providing increased input than usual, taking notes, as well as completed group worksheet. Attentive as group discussed how learning to manage anger can positively improve mental health sx management and relationships. Gave personal example of unmanaged anger impacting his ability to cope with new stressors in his life. Group worked together to define anger and discussed the ways anger can impact one internally and externally. Pt reported that anger can be triggered by external situations and well as internal things such as not addressing one?s emotions in other ways. Pt completed the iceberg exercise and identified emotions that tend to ?live under the surface? of anger. Pt also gained awareness of his typical responses to anger which included: shutting down, isolating self, making sarcastic jokes, becoming red in face, and yelling. Benefited from group by increasing understanding of the impact of anger on mental health. Recommended continued tx to improve emotion regulation skills, prevent decompensation, and continue to work on improving consistent skill application. Narrative Note: []
--- NOTE | 2020-11-15 11:10 | BH.SGPN.GN ---
Behaviors/Verbalizations/Mental Status: []Client alert and oriented, neatly dressed and groomed. Eye contact good. Motor activity appropriate. Speech within normal limits. Affect constricted, mood anxious and dysthymic. Thoughts linear, logical, no signs of hallucinations or delusions. Client Response/Progress/Benefit: []Pt was engaged throughout AEB participating in discussion and taking notes. Contributed as group brainstormed healthy coping skills for better managing anger which included: deep breathing, counting, exercise, self-reflection questions, and opposite action. Pt stated thinking about anger ?makes me upset because I don?t like the person I am when I?m angry.? Tax Commissioner encouraged pt to practice self-compassion as pt is still learning how to manage emotions in healthy ways. Pt appeared to benefit from identifying different techniques to manage anger as well as gaining awareness of warning signs. Pt selected taking walks more often to better manage anger. Will continue IOP tx to reduce anxiety which will help pt transition back to full-time work Narrative Note: []
--- NOTE | 2020-11-19 09:01 | BH.SGPN.GN ---
Behaviors/Verbalizations/Mental Status: []Client alert and oriented, casual dress, hygiene tended to. Eye contact fair. Motor activity appropriate. Speech within normal limits. Affect congruent, mood euthymic. Thoughts linear, logical, no signs of hallucinations or delusions. Client Response/Progress/Benefit: []Pt responded well to session AEB pt openly sharing thoughts and listening attentively to others. Pt reported mental health positive as watched a MMA fight with his son over the weekend. Pt stated additional mental health positive as able to challenge intrusive thoughts about past relationship. Pt reported current stressor is anxious about returning to work next week. Pt stated he worries about what kind of questions he will be asked by co-workers. Receptive to feedback about developing statement can tell co-workers to help decrease anxiety. Progress noted with pt reporting improved mood and increased use of skills. Pt to continue IOP to assist pt with successful transition back to work and prevent decompensation. Narrative Note: []
--- NOTE | 2020-11-19 10:15 | BH.SGPN.GN ---
Behaviors/Verbalizations/Mental Status: []Eye contact is good. Motor activity is appropriate. Appearance is casual. Speech is Appropriate. Mood is euthymic. Affect is congruent. Thoughts are linear and logical. No evidence of psychosis. Client Response/Progress/Benefit: []Pt was an active participant in group discussion and activity. Attentive during psychoeducation on factors that build resiliency. Worked with peers to define resilience and pt stated resilience is ?moving forward despite what?s in front of you.? Along with peers also identified what could impact resilience which included: family, internal coping skills, beliefs, hope, and personality type. Pt reports his jaelyn, living by ?the thomas rule,? and his role models make pt resilient. Pt benefited by increasing awareness on the role of resilience in mental health and factors that can help build resiliency. Will continue IOP tx to help pt manage anxiety while transitioning back to work. Narrative Note: []
--- NOTE | 2020-11-19 11:20 | BH.SGPN.GN ---
Behaviors/Verbalizations/Mental Status: []Client alert and oriented, casually dressed and groomed. Eye contact good. Motor activity appropriate. Speech within normal limits. Affect congruent, mood euthymic. Thoughts linear, logical, no signs of hallucinations or delusions. Client Response/Progress/Benefit: []Client responded well to session, engaged and participated throughout discussion. Client participated in the discussion of how each resiliency component can help increase personal resiliency. Provided personal examples at times. Client worked with group to identify ways to practice each of the resiliency traits reviewed. Client shared he would like to focus on improving resilience trait of ?accepting change as a part of living?. Client would like to continue working on this resiliency trait by practicing saying the serenity prayer in times he is faced with new changes. Appeared to benefit from reflecting on importance of each resilience trait and identifying strategies to strengthen resilience. Will continue IOP tx to continue to maintain mood stability, reduce anxiety, and improve daily functioning. Narrative Note: []
--- NOTE | 2020-11-20 09:08 | BH.SGPN.GN ---
Behaviors/Verbalizations/Mental Status: []Eye contact is good. Motor activity is appropriate. Appearance is casual. Speech is Appropriate. Mood is agitated. Affect is congruent. Thoughts are linear and logical. No evidence of psychosis. Reviewed daily check in sheet and no reports of suicidal ideations or intent. Client Response/Progress/Benefit: []Pt was an attentive and engaged participant AEB actively listening and providing feedback, as well as willingness to process with group. Client reports emotion for the day as ?agitated? as he is struggling with frustrations related to a conversation with his mother from the prior night. Discussed that they had different opinions and both struggled to understand the other?s point of view. Client reported some personal wins in his management of the discussion as he was able to walk away and take a break when getting agitated, as well as used healthy distractions to calm himself. Shared he is taking ?baby steps? in improving his ability to effectively resolve conflict. Additionally reports progress in his ability to move past intrusive thoughts about his divorce. Benefited from group support, encouragement, and feedback. Will continue in IOP to improve coping repertoire, healthy communication, and improve overall mood stability. Narrative Note: []
--- NOTE | 2020-11-20 10:15 | BH.SGPN.GN ---
Behaviors/Verbalizations/Mental Status: []Client alert and oriented, casually dressed and groomed. Eye contact good. Motor activity appropriate. Speech within normal limits. Affect congruent, mood euthymic. Thoughts linear, logical, no signs of hallucinations or delusions. Client Response/Progress/Benefit: []Client engaged during session AEB client contributing thoughts throughout discussion and completing worksheet. Connected with discussion on crisis and how coping with external crises by using unhealthy coping skills could result in a personal crisis. Group reflected on the importance of having awareness of personal warning signs in order to prevent reaching crisis point. Group identified potential warning signs for crisis and client completed the personal warning signs worksheet. Client identified personal crisis warning signs to include: isolating, apathy, difficulty concentrating, and problems with memory. Client benefited by increasing awareness of what leads to crisis and personal warning signs. Pt will continue IOP to challenge negative thoughts, increase healthy coping and prevent decompensation.
--- NOTE | 2020-11-20 11:15 | BH.SGPN.GN ---
Behaviors/Verbalizations/Mental Status: []Client alert and oriented, casually dressed and groomed. Eye contact good. Motor activity appropriate. Speech within normal limits. Affect congruent. Mood anxious. Thoughts linear, logical, no signs of hallucinations or delusions. Client Response/Progress/Benefit: []Client responded well to session as evidenced by client listening attentively to others and providing strategies during discussion. Client identified warning signs for crisis and gained further awareness of earliest warning signs. Client created a crisis action plan to help client better manage warning signs for crisis. Client?s action plan for isolating, apathy, and difficulty concentrating included coping skills such as: journaling, opposite action, making lists, getting a load planner, and identifying what he cares about right now. Client appeared to benefit from creating a crisis action plan and increasing self-awareness. Client to continue IOP tx to continue use of healthy coping, challenge distorted thoughts and promote work-related functioning. Narrative Note: []
--- NOTE | 2020-11-21 14:15 | BH.COMM_ITS ---
Communication Note - Communication with Client Communication Note: Client called in to IOP today stating he needed a pres cription refill for Cymbalta 30mg daily. Discussed with Dr. Claros and prescription called in to [facility] via Dr. Claros's verbal order.
--- NOTE | 2020-11-21 14:15 | BH.COMM ---
Communication Note - Communication with Client Communication Note: Client called in to IOP today stating he needed a prescription refill for Cymbalta 30mg daily. Discussed with Dr. Claros and prescription called in to [facility] via Dr. Claros's verbal order.
--- NOTE | 2020-11-22 09:01 | BH.SGPN.GN ---
Behaviors/Verbalizations/Mental Status: []Pt eye contact good, casually dressed, motor activity appropriate, speech normal rate and tone, mood euthymic, congruent affect, thoughts linear and intact, no evidence of delusions or hallucinations. Reviewed client?s symptom tracker, no signs of suicidal ideation, plan, or intent as of today. Client Response/Progress/Benefit: []Pt responded well to session AEB pt listening attentively to peers, and openly sharing thoughts and feelings. Pt reported his week has been overall positive. Pt stated he believes his triggers are becoming less frequent and his emotions less reactive. Pt identified mental health positive as making healthier changes in his life with exercise and diet. Pt stated stressor is returning to work next week. Pt reported additional mental health positive is not having any suicidal thoughts in weeks. Progress noted with pt reporting improved mood and increased use of health coping. Pt to continue IOP to maintain gains, continue use of healthy coping and successfully transition back to work. Narrative Note: []
--- NOTE | 2020-11-22 10:02 | BH.SGPN.GN ---
Behaviors/Verbalizations/Mental Status: []Eye contact is good. Motor activity is appropriate. Appearance is casual. Speech is Appropriate. Mood is euthymic. Affect is congruent. Thoughts are linear and logical. No evidence of psychosis. Client Response/Progress/Benefit: [] Pt was an attentive participant and actively engaged throughout group discussion and activity. Attentive during psychoeducation and taking notes. Reflected connecting with topic of personal pitfalls and how they can impede mental health treatment progress. Pt shared ?Deciding to change is different for everyone. Knowing we need change helps but we have to want to do it?. Pt and peers provided examples of personal pitfalls or setbacks that impact mental health which included; isolation, avoidance, procrastination, denial, poor self-care, and ruminating on externals. During experiential activity pt along with peers identified several pitfalls from the activity that are also associated with mental health which included; poor communication, assumptions, lack of awareness, negative self-talk, fear of failure, and personalizing. Did well to encourage peers and provide possible solutions to experiential activity. Benefited from group by increasing awareness of pitfalls which can impact mental health. Pt will continue in IOP to maintain gains, further improve mood stability, and promote healthy skill application. Narrative Note: []
--- NOTE | 2020-11-22 11:00 | BH.SGPN.GN ---
Behaviors/Verbalizations/Mental Status: []Client alert and oriented, casually dressed and groomed. Eye contact good. Motor activity appropriate. Speech within normal limits. Affect constricted, mood euthymic. Thoughts linear, logical, no signs of hallucinations or delusions. Client Response/Progress/Benefit: []Client receptive of session, engaged throughout AEB client actively listening and contributing to discussion, as well as taking notes. Client completed worksheet identifying personal pitfalls impacting mental health progress. Client identified the following pitfalls: shutting down, ignoring his mental health, inappropriate guilt, and ruminating on externals. Client reports since starting IOP he has reduced his ruminating and he is more focused on the future. Group learned different coping skills to help manage pitfalls. Client will work on overcoming inappropriate guilt by practicing self-compassion and using thought challenging. Benefited from identifying personal pitfalls and strategies to overcome these pitfalls. Will continue IOP tx to further improve mood and daily functioning. Narrative Note: []
--- NOTE | 2020-11-28 09:00 | BH.SGPN.GN ---
Behaviors/Verbalizations/Mental Status: [] Eye contact is good. Motor activity is appropriate. Appearance is casual. Speech is Appropriate. Mood is euthymic. Affect is congruent. Thoughts are linear and logical. No evidence of psychosis. Reviewed daily check in sheet and no reports of suicidal ideations or intent. Client Response/Progress/Benefit: [] Pt was an attentive participant AEB actively listening, providing supportive feedback, as well as willingness to process with group. Client reports emotion for the day as ?content? as he feels he has made much progress in treatment and feels more capable of moving forward with his life since his divorce. Discussed mental health wins which included: successfully returning to work without getting angry and ?losing it? on anyone. Shared the work environment continues to be stressful but that he is better managing his emotions and not allowing himself to ?sweat the small stuff?. Additional win is continuing to make progress with practicing regular self-care. Described creating a more structured diet and exercise routine. Shared that this week is his last week in IOP, which is a positive but also a stressor as he found the supportive group environment to be helpful in progress. Did well to identify skills he can use post discharge to maintain gains and reports plans to begin the aftercare program. Benefited from group support, encouragement, and feedback. Will continue in IOP to maintain gains and prevent decompensation prior to IOP discharge. Narrative Note: []
--- NOTE | 2020-11-28 11:05 | BH.MDN_ITS ---
Multi-Disciplinary Note - Note 30-min Individual Time Started:: 10:30 Date: 11/28/20 Purpose of session/treatment goals addressed:: Reviewed current symptoms and progress in [facility]. Problem-solved and discussed return to work. Eye Contact:: Good Motor Activity:: Appropriate Appearance:: Neat Speech:: Appropriate Mood:: Euthymic Affect:: Full Thoughts:: Linear, Logical, No evidence of hallucinations/delusions noted Staff Interventions:: Reviewed skills learned in [facility] with patient. Praised him for his effort and for utilizing skills at work this week. Client Response:: Pt returned to work this week for 2 days. He reports minimal distress on his first day back however on his second day everything went wrong. He talked about the stressors and how this impacted his stress and emotions. Pt was able to utilize skills learned in [facility] to work through anxiety. Skills used were affirmation, thought-stopping, and mindfulness. He took breaks to calm when frustrated. Feels confidence about going back full-time next week. Overall reports progress stating he is more future-focused. He went on a date last week, is eating healthier, and began to ride his bike again. In discussing his ex he states I don't care what she does anymore. Admits that he has thoughts and encounters triggers about her however is not ruminating as much on the past. Also is not talking about her and their struggles as much with support. Medication compliant and feels that his medications have been helpful. Risks/Concerns:: No risks or concerns noted. Progress Toward Goals/Plan:: Progress noted as he had been able to transition back to work w/o significant decompensation. Future-oriented. Less ruminations on past relationship. No suicidal ideations for several weeks. Anxiety and fear remain however limited impact on daily functioning. Utilized health coping skills on a consistent basis. Insight into cognitive distortions and triggers to negative thinking. Plan is to discharge from [facility] on 11/30/20. Pt has not followed through with encouragement to set up PCP and outpatient counseling appointments. [facility]CP. He reports leaving a message for outpatient therapist in the area who specializes in PTSD and is awaiting call back. Time Stopped:: 11:05
--- NOTE | 2020-11-28 11:15 | BH.SGPN.GN ---
Behaviors/Verbalizations/Mental Status: [] Eye contact is good. Motor activity is appropriate. Appearance is neat. Speech is Appropriate. Mood is euthymic. Affect is full. Thoughts are linear and logical. No evidence of psychosis. Client Response/Progress/Benefit: [] Pt was an active participant in group discussion. Provided appropriate feedback and insight. Group processed the experiential activity and identified the skills that helped them succeed which included; working together, communication, persistence, trust, thoughtfulness, and being open to guidance. Able to relate how these skills are also important in a healthy relationships. Group processed skills which were unhelpful during activity which included; poor communication and rushed/impulsive decisions. Group identified the impact that unhealthy relationships can have on one's mental wellness which included; increased anxiety, increased depression, lower self-esteem, increased negative thoughts, poor self-care, physical health, indecisiveness, and confusion. Pt was able to identify one thing that he could do to improve his relationships which is express my emotional needs. Benefited from group through insight on hedrick aspects of unhealthy vs healthy relationships as well as identifying what she could do to improve her current relationships. Will continue in IOP to maintain gains and help with transition back to work. Narrative Note: []
--- NOTE | 2020-11-28 12:48 | PCM.BH.PN_ITS ---
Progress Note Progress Note: History of Present Illness/Interim History: [] The patient is a 50-year-old male with a history of depression, anxiety and PTSD who is seen in follow-up at the [facility] behavioral health IOP program. I last saw the patient 1 month ago. At that time the patient continued the weaning of Prozac and stayed on his Cymbalta. He discontinued the Prozac about 3 weeks ago and tolerated this well. The patient feels he is focused on the future now and thinking much less about the past. He has not had any panic attacks since [facility] weeks ago [facility]. He is looking forward to his divorce being finalized at the end of December. He feels he is greatly benefiting from the IOP program and is learning to set boundaries. He went back to work this week for 2 days and this has been somewhat stressful but he has been able to function okay. His mood is okay overall and gets mildly depressed at times. He denies any passive thoughts of , suicidal or homicidal ideation, hallucinations or delusions. His sleep is better overall and gets he gets about 6-1/2 hours a night. He has only drank 1 beer in the past month in terms of alcohol use. Current Psychiatric Medications: [] Cymbalta 30 mg p.o. daily (x5 weeks now); the patient also takes Trileptal, Neurontin, and Klonopin for a seizure disorder). Mental Status Examination: [] The patient is a 50-year-old male who is seen wearing a mask due to the pandemic and is casually dressed and groomed with good hygiene. He is cooperative during the interview and has no psychomotor agitation or retardation. Eye contact is good and speech is normal rate and rhythm and fluent with no pressure. Mood is approaching euthymia with occasional mild depression. Affect is full and normal. Thought process is goal-directed and organized. Thought content: There is no evidence of passive thoughts of , suicidal or homicidal ideation, hallucinations or delusions. Judgment is intact. Insight is improving and is good. Impulsivity is low to moderate. Diagnoses: [] 1. Major depressive disorder, recurrent, severe without psychosis 2. Panic disorder 3. PTSD 4. Strong avoidant traits 5. History of seizure disorder and neuropathy 6. Primary support and work issues Plan: [] The patient will continue the IOP program at [facility] as the structure, support, education, and group therapy will hopefully prevent worsening of the patient's symptoms which might require hospitalization. He felt safe during the interview and if it anytime he does not feel safe he will let us know or go to the emergency room. The risks, options, possible complications and side effects of the medications were again discussed with the patient and he understands and accepts these. He will continue to try to avoid all alcohol use. He is given the option of increasing his Cymbalta to 60 mg p.o. daily but the patient refuses and wants to stay at the current dose and see how he does. A refill was sent in for Cymbalta 30 mg p.o. daily, #30 with 1 refill. He will continue to follow-up with his outpatient medical and psychiatric providers.
--- NOTE | 2020-11-29 09:00 | BH.SGPN.GN ---
Behaviors/Verbalizations/Mental Status: []Pt eye contact good, casually dressed, motor activity appropriate, speech normal rate and tone, mood euthymic, congruent affect, thoughts linear and intact, no evidence of delusions or hallucinations. Reviewed client?s symptom tracker, no signs of suicidal ideation, plan, or intent as of today. Client Response/Progress/Benefit: []Pt responded well to session AEB pt openly sharing thoughts and listening attentively to others. Pt shared a mental health positive as finally being able to relax most of the day yesterday. Pt stated using healthy coping skills, decrease ruminations, and improved thought patterns as strategies that have helped him feel better. 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 Pt seemed to benefit from support from peers. Pt to continue IOP to maintain gains and prevent decompensation. Narrative Note: []
--- NOTE | 2020-11-29 10:10 | BH.SGPN.GN ---
Behaviors/Verbalizations/Mental Status: [] Eye contact is good. Motor activity is appropriate. Appearance is neat. Speech is Appropriate. Mood is euthymic. Affect is full. Thoughts are linear and logical. No evidence of psychosis Client Response/Progress/Benefit: [] Pt was an active participant in group activity and discussion. Attentive during psychoeducation on the 5 stages of change. Pt provided insight while group worked to identify barriers to change which included; being complacent, fear of the unknown, being uncomfortable, fearful that any change will be overwhelming, accustomed to current life, and knowing what to expect (even if its negative) is comfortable. During activity group processed emotions commonly associated with change along with his peers. Emotions processed were exhausted, cautious, hopeful, frustrated, overwhelmed, confident, frightened, relief, and excitement. Benefited from increase awareness of the emotions associated with change and how these emotions can encourage or disrupt change. Will continue in IOP to maintain gains and transition back to work. Narrative Note: []
--- NOTE | 2020-11-29 11:12 | BH.SGPN.GN ---
Behaviors/Verbalizations/Mental Status: []Client alert and oriented, neatly dressed and groomed. Eye contact good. Motor activity appropriate. Speech within normal limits. Affect congruent, mood euthymic. Thoughts linear, logical, no signs of hallucinations or delusions. Client Response/Progress/Benefit: []Client was an active participant, contributing to discussion and participating in the activity. Client participated during discussion and psychoeducation on the stages of change. Client reports he has been thinking about a career change that would be more rewarding and less stressful. Client reports belief he is in the preparation stage as client has been brainstorming careers, but has not yet applied. Client identified personal barriers such as self-doubt and ?what if? thinking. Client stated when these barriers arise, client feels more confident because he has ?more tools in my toolkit.? Appeared to benefit from reflecting on the stages of change and the progress client has made. Will discharge from IOP tx tomorrow as client has accomplished his tx goals. Narrative Note: []
--- NOTE | 2020-11-30 09:05 | BH.SGPN.GN ---
Behaviors/Verbalizations/Mental Status: [] Eye contact is good. Motor activity is appropriate. Appearance is casual. Speech is Appropriate. Mood is euthymic. Affect is full. Thoughts are linear and logical. No evidence of psychosis. Reviewed daily check in sheet and no reports of suicidal ideations or intent. Client Response/Progress/Benefit: [] Pt was an active participant on group discussion regarding empathy vs sympathy. Attentive. Provided appropriate feedback. Emotion for today is hopeful. Shared with the group that today is his last day in [facility]. States that he remains future-focused and is not dwelling on his past. I understand what I can and cannot control. Insight that while his mental health has improved he will continue to have days where he is depressed or anxiety and this is normal. Shared certain groups which were most helpful and resonated the most with him. Progress noted per pt report. Benefited from group support, encouragment, and feedabck. Pt will be discharged from [facility] today. Narrative Note: []
--- NOTE | 2020-11-30 10:10 | BH.SGPN.GN ---
Behaviors/Verbalizations/Mental Status: [] Eye contact is good. Motor activity is appropriate. Appearance is neat. Speech is Appropriate. Mood is euthymic. Affect is full. Thoughts are linear and logical. No evidence of psychosis. Client Response/Progress/Benefit: [] Pt was an active participant in group discussion. Attentive during psychoeducation. Shared thoughts and insights along with peers on myths that are commonly associated with self-care. Common myths that group identified included self-care is .... selfish, lazy, takes to much time, has to be fun, is a privilege, is expensive, and is self-indulgent. Group worked together to attempt to bust these common myths about self-care. Pt along with her peers were able to identify barriers to self care such as; feeling to busy, prior commitments, urge to put others first, lack of finances, and feeling as if they don't deserve self-care. Pt and group were also able to identify the benefits to self-care which included; clarity, decreased stress, more energy, stability, increased self-esteem, having a purpose or something to look forward too. Benefited from group by increasing awareness of the benefits to self-care and challenging common myths that hinder one from utilizing self-care. Pt will be discharged from [facility] today. Narrative Note: []
--- NOTE | 2020-11-30 11:03 | BH.SGPN.GN ---
Behaviors/Verbalizations/Mental Status: [] Client alert and oriented, casually dressed and groomed. Eye contact good. Motor activity appropriate. Speech within normal limits. Affect congruent, mood euthymic. Thoughts linear, logical, no signs of hallucinations or delusions. Client Response/Progress/Benefit: [] Client did well to remain an engaged participant AEB client taking notes during discussion, providing input, and listening attentively to peers. Contributed to group discussion on the various areas of self-care, benefits, and activities to improve self-care in each area. Client completed worksheet in which client identified current self-care practices and what self-care activities client wants to start using. Client reported he is currently excelling in self-care areas of financial and social self-care. Expressed wanting work on improving psychological self-care, noting he has learned a lot about his mental health throughout IOP tx and would like to continue working on this. Client shared he wants to begin by starting small and finding good literature resources to reference. Appeared to benefit from reflecting on the area of self-care client can improve and setting a small goal. Will discharge from [facility] on this date and is encouraged to continue with outpatient therapy to maintain gains and prevent decompensation. Narrative Note: []
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
--- NOTE | 2020-11-30 12:46 | BH.AFTERPLAN ---
Aftercare Plan - Demographics Treatment End Date:: 11/30/20 Psychiatrist:: Lauren Albert Psychiatrist Office #:: [phone] [facility]/IOP Therapist:: Madan Martinez Therapist Phone #:: [phone] - Plan Details Progress/Aftercare Plan Details:: Pt made significant progress in IOP. Was consistent and engaged in treatment. According to DSM cross-cutting scales pt had an overall symptom decrease of 46%. Per report transitioned well back to work. Utilizing healthy coping skills on consistent basis. No suicidal ideations in several weeks. More future-oriented. Ruminating less on past unhealthy relationship. Reports decreased intensity, severity, and frequency of anxiety. No panic attacks in 2 weeks. Outcomes measurement (DSM cross-cutting scale) notes a 71% reduction in depression scales and a 42% reduction in anxiety scales since starting IOP. Strategies for Success:: 1. Self-care has been extremely beneficial so make sure to continue on a consistent basis. 2. Continue to challenge thoughts and utilizing affirmations. While the past is an important part of who you are its almost beneficial to remain focused on the present and future. - Appointments Appointments/Referrals to Other Services:: Appointment set with new PCP on 12/12/20 at 2PM at [facility]. Pt has a call out to [facility] and is awaiting a response. They have not returned call in over a week. Encouraged him to call back. Gave referral to [facility] and strongly encouraged calling them to get set up with counseling. Pt has not been proactive in setting up aftercare. - Medications Home Medications: Home Medications clonazepam 1 mg PO TID 10/17/20 duloxetine [Cymbalta] 30 mg PO DAILY 30 Days #30 cap 10/17/20 gabapentin 300 mg PO TID 10/17/20 oxcarbazepine 600 mg PO BID 10/17/20 primidone 250 mg PO TID 10/17/20 duloxetine [Cymbalta] 30 mg PO DAILY 30 Days #30 cap 11/28/20
== END 2020-11-30 13:39 | disposition home or self-care (01) ==
LOC: BHIOP 08:27
PROVIDERS: Referring Provider Psychiatry & Neurology Psychiatry; Visit Provider Psychiatry & Neurology Psychiatry
DX: F33.1 Major depressive disorder, recurrent, moderate (principal); F41.9 Anxiety disorder, unspecified; G40.909 Epilepsy, unspecified, not intractable, without status epilepticus; G62.9 Polyneuropathy, unspecified; Z79.899 Other long term (current) drug therapy
CPT/HCPCS: S9480; 90832; 90837; 90853

== ENCOUNTER → 2020-12-28 11:35 | Outpatient (CLI) | payer BC, SELFPAY ==
[2020-12-28 14:52] LABS: Absolute Lymphocyte Count 0.83 X10^3/uL (0.83-4.51); Absolute Neutrophil Count 3.3 X10^3/uL (2.0-7.7); Basophil# 0.04 X10^3/uL; Basophil% 0.9 % (0-1); Eosinophil# 0.06 X10^3/uL; Eosinophils% 1.3 % (0-5); Hematocrit 43.1 % (40-54); Hemoglobin 14.1 g/dL (13.0-16.5); Lymphocyte # 0.83 X10^3/ul (0.83-4.51); Lymphocyte % 18.2 % (19-41); Mean Corp Hgb Conc 32.7 g/dL (32-36); Mean Corpuscular Hgb 29.9 pg (27.0-32.0); Mean Corpuscular Volume 91.5 fL (80-94); Mean Platelet Vol. 11.5 fl (6.2-12.0); Monocyte# 0.33 X10^3/uL; Monocyte% 7.2 % (0-10); NRBC Flagged by Analyzer 0 % (0-5); Neutrophil # 3.29 X10^3/uL (2.7-7.7); Neutrophil % 72.2 % (47-70); Platelet Count 212 K/mm3 (150-450); RBC Distribution Width CV 12.5 % (11.6-14.6); RBC Distribution Width SD 41.7 fl (35.1-43.9); Red Blood Count 4.71 M/mm3 (4.6-6.2); White Blood Count 4.6 K/mm3 (4.4-11.0)
[2020-12-28 15:05] LABS: Vitamin D,25 Hydroxy 35.6 ng/mL
[2020-12-28 15:10] LABS: ALB/GLOB Ratio 1.2 RATIO (0.9-2.4); AST(SGOT) 15 U/L (15-37); Alanine Aminotransfer ALT/SGPT 39 U/L (16-61); Albumin, Serum 4.1 g/dL (3.2-5.0); Alkaline Phosphatase 70 U/L (45-117); Anion Gap 5 (5-15); BUN 9 mg/dL (7-18); BUN/Creat Ratio 12.5 RATIO (10-20); Calcium,Total 8.6 mg/dL (8.5-10.1); Chloride 97 mmol/L (98-107); Cholesterol 172 mg/dL (200); Creatinine, Serum 0.72 mg/dL (0.70-1.30); EST Glomerular Filtration Rate 123 mL/min (>60); Est Glom Filt Rate - Afr Amer 148 mL/min (>60); Globulin 3.5 g/dL (2.2-4.2); Glucose 103 mg/dL (74-106); High Density Lipoprotein 59 mg/dL; Magnesium 2.1 mg/dL (1.6-2.6); PSA,Total - Annual Screen 0.59 ng/mL (0.00-4.00); Potassium 4.2 mmol/L (3.5-5.1); Protein, Total 7.6 g/dL (6.4-8.2); Sodium Level 132 mmol/L (136-145); Thyroid Stim Hormone (TSH) 1.64 uIU/mL (0.358-3.74); Triglycerides 87 mg/dL; Very Low Density Lipoprotein 17 mg/dL (5-40)
[2020-12-28 15:12] LABS: Hemoglobin A1c 5.7 % (3.8-5.6)
[2021-01-09 14:10] LABS: Testosterone, Free 8.37 ng/dL (5.00-21.00)
[2021-01-09 14:22] LABS: Testosterone, % Free 3.01 % (1.50-4.20); Testosterone, Total 278 ng/dL (264-916)
== END ==
PROVIDERS: PCP Internal Medicine; Referring Provider Internal Medicine; Visit Provider Internal Medicine
DX: G40.909 Epilepsy, unspecified, not intractable, without status epilepticus (principal); G62.9 Polyneuropathy, unspecified; E87.1 Hypo-osmolality and hyponatremia; Z13.220 Encounter for screening for lipoid disorders; Z13.1 Encounter for screening for diabetes mellitus; Z12.5 Encounter for screening for malignant neoplasm of prostate
CPT/HCPCS: 36415; 80053; 80061; 82306; 83036; 83735; 84153; 84402; 84403; 84443; 85025; G0103

== ENCOUNTER → 2022-04-01 | Outpatient (CLI) | payer OTHER, SELFPAY ==
--- NOTE | 2022-04-01 13:19 | EKG12_ITS ---
Test Reason : PREOP Blood Pressure : / mmHG Vent. Rate : 073 BPM Atrial Rate : 073 BPM P-R Int : 176 ms QRS Dur : 088 ms QT Int : 358 ms P-R-T Axes : 051 018 055 degrees QTc Int : 394 ms Normal sinus rhythm Normal ECG Confirmed by SAMUEL ROMAN, JAYME ([id number]), editor publications ANTHONY DEL CID ([id number]) on 04/02/2022 9:07:15 AM Referred By: Selwyn Ma Confirmed By:JAYME BAKER MD
[2022-04-01 14:38] LABS: Absolute Lymphocyte Count 1.27 X10^3/uL (0.83-4.51); Absolute Neutrophil Count 3.6 X10^3/uL (2.0-7.7); Basophil# 0.08 X10^3/uL; Basophil% 1.5 % (0-1); Eosinophil# 0.04 X10^3/uL; Eosinophils% 0.7 % (0-5); Hematocrit 45.6 % (40-54); Hemoglobin 14.9 g/dL (13.0-16.5); Lymphocyte # 1.27 X10^3/ul (0.83-4.51); Lymphocyte % 23.5 % (19-41); Mean Corp Hgb Conc 32.7 g/dL (32-36); Mean Corpuscular Hgb 29.7 pg (27.0-32.0); Mean Corpuscular Volume 90.8 fL (80-94); Mean Platelet Vol. 10.6 fl (6.2-12.0); Monocyte# 0.37 X10^3/uL; Monocyte% 6.8 % (0-10); NRBC Flagged by Analyzer 0 % (0-5); Neutrophil # 3.62 X10^3/uL (2.7-7.7); Neutrophil % 66.9 % (47-70); Platelet Count 249 K/mm3 (150-450); RBC Distribution Width SD 43.1 fl (35.1-43.9); Red Blood Count 5.02 M/mm3 (4.6-6.2); White Blood Count 5.4 K/mm3 (4.4-11.0)
[2022-04-01 14:50] LABS: Magnesium 2.2 mg/dL (1.6-2.6)
[2022-04-01 14:52] LABS: Anion Gap 6 (5-15); BUN 14 mg/dL (7-18); BUN/Creat Ratio 16.9 RATIO (10-20); Calcium,Total 8.7 mg/dL (8.5-10.1); Chloride 103 mmol/L (98-107); Creatinine, Serum 0.83 mg/dL (0.70-1.30); EST Glomerular Filtration Rate 104 mL/min (>60); Est Glom Filt Rate - Afr Amer 126 mL/min (>60); Glucose 113 mg/dL (74-106); Potassium 4.2 mmol/L (3.5-5.1); Sodium Level 139 mmol/L (136-145)
[2022-04-01 16:25] LABS: HIV - WCH Non-Reactive (Nonreactive); Hepatitis B Surface Antibody Reactive; Hepatitis C Antibody Non-Reactive (Nonreactive)
[2022-04-08 15:08] LABS: Hepatitis A AB, Total Negative (Negative); Phenobarbital,Serum 6 ug/mL (15-40); Primidone, Serum 5.8 ug/mL (5.0-12.0); Trileptal-Oxcarbazepine 9 ug/mL (10-35)
--- NOTE | 2022-04-09 15:34 | CASEMGMT ---
TC to pt for RN CM assessment, no answer and received unidentifiable vm.
--- NOTE | 2022-05-30 09:34 | PCM.HP.BLA ---
History and Physical Addendum Acct: [id number] Name:? MINISTERIO RO Rep #: [id number] : 1970 ? ? Provider: Dr. Yousif Mix, DO Age/Sex:? 51/M ? ? Location: [facility] [place] Status: Signed Intake Vital Signs ? 12/12/2112:32 02/07/2208:11 Height 5 ft 9.5 in 5 ft 9.5 in Weight: ? 255 lb 4 oz BMI ? 37.1 Intake Visit Reasons:?Lumbar spine Allergies ibuprofen [From Motrin] Allergy (Verified 02/06/22 08:11) Angioedemanaproxen [From Naprosyn] Allergy (Verified 02/06/22 08:11) Angioedemadivalproex sodium [From Depakote] Adverse Reaction (Verified 02/06/22 08:11) Other Medications clonazepam 1 mg tablet 1 mg PO TID 10/17/20 [History Confirmed 02/06/22] gabapentin 300 mg capsule 300 mg PO TID 10/17/20 [History Confirmed 02/06/22] oxcarbazepine 600 mg tablet 600 mg PO BID 10/17/20 [History Confirmed 02/06/22] primidone 250 mg tablet 250 mg PO TID 10/17/20 [History Confirmed 02/06/22] clotrimazole-betamethasone 1 %-0.05 % topical cream 1 applic topical BID #45 grams 07/10/21 [Rx Confirmed 02/06/22] duloxetine 20 mg capsule,delayed release 20 mg PO DAILY 30 days #90 caps 12/30/21 [Rx Confirmed 02/06/22] PFSH Medical History? Epilepsy Major depressive disorder, recurrent severe without psychotic features Neuropathy Panic disorder PTSD (post-traumatic stress disorder) Family History? Father Lung cancerSister Pancreatic cancerAunt Mental disorder Social History? Smoking Status:? Unknown if ever smoked Smokeless tobacco user:? chewing tobacco alcohol intake:? never what type of physical activity do you participate in:? walking frequency:? 1-2 times per week HPI Lumbar spine Details: Parts of this documentation were recorded by a scribe, this documentation accurately reflects the service provided and the decisions made by me, Dr. Yousif Mix, DO 02/06/22 0808. MINISTERIO RO is a 51 year old M here today for lower back pain. He was referred by Dr. Vann. He has been having this pain for 3 years. States that his pain is more on his right side. His pain radiates down to his hip to his groin and down into his legs. Denies any injury to his back. Denies any surgery to his back. States that prolonged standing increases his pain. Denies using ice or heat. He takes acetaminophen for the pain. He has had 3 injections in his back, the first two were helpful but the last one wasn't and he had the last one last week. Ministerio is a pleasant gentleman 51 years old that has chief complaint of low back pain more right-sided.? He also gets some pain down his right leg goes into his thigh sometimes below the knee and sometimes not.? The pain is bad is a 10/10 in severity.? When it is good is a 3/10.? He states that he could live with a 3 but he cannot live with a 10.? 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 Pain started perhaps 3 or 4 years ago.? Overall it is getting worse.? He denies any bowel or bladder dysfunction.? He denies history of unexplained weight loss night fever sweats or chills.? He has a history of neuropathy of both lower extremities however he is not diabetic.? He takes gabapentin for the polyneuropathy.? He states that it definitely helps him.? All he takes for pain is Tylenol.? Unfortunately he has had to go through a difficult divorce thus has added stress to his life.? During the divorce proceedings he dealt with it by eating a lot and has gained quite a bit of weight. On examination he has more pain with flexion of his lumbar spine that he does extension.? He has good motor strength in all the major muscle groups of both lower extremities.? He can stand on his heels and he can stand on his toes without difficulty.? He has 2+ patella and 1+ Achilles reflexes bilaterally.? He has no muscle atrophy.? He has no long tract signs.? Clonus is absent Babinski's are downgoing.? He has a positive Sadia Patricks on both sides.? We will x-ray his hips while he is here. I reviewed plain x-rays of his lumbar spine that demonstrate some degeneration with lipping at L4-5 The MRI that he brought with him that is a few weeks old demonstrates that he has a right-sided protrusion of the L4-5 disc which is consistent with his symptoms.? The other discs look okay. Noted to me that he wishes a permanent fix.? He states that he cannot live with the pain when it is a 10/10 in severity.? I explained the surgery at length to him however 360 degree fusion is done.? In his case we would fuse L4-5.? I will have him go see Dr. Bob who will be the approach surgeon and be sure that he agrees to the case because Ministerio has gained some weight and is got a larger abdomen than we like for the surgery.? I will see him after he sees Dr. Bob. Coding Level of Care Code Off vis,new,level 3 Diagnoses HNP (herniated nucleus pulposus), lumbar? M51.26
== END | disposition home or self-care (01) ==
LOC: PAT 06-02 16:41
PROVIDERS: Anesthesiology; PCP Internal Medicine; Referring Provider Psychiatry & Neurology Neurology; Visit Provider Orthopaedic Surgery
DX: Z01.818 Encounter for other preprocedural examination (principal); G40.B09 Juvenile myoclonic epilepsy, not intractable, without status epilepticus
CPT/HCPCS: 36415; 80048; 80184; 80188; 82542; 83735; 85025; 86703; 86706; 86708; 86803; 87081; 93005; J3475

== ENCOUNTER 2022-06-03 05:36 | Inpatient (IN) | payer OTHER, SELFPAY ==
[2022-06-03] VITALS (15 sets, daily range): BP systolic 118–164; BP diastolic 70–106; PULSE 73–98; RESP 10–18; TEMP 35.7–36.9; O2SAT 96–100; BMI 37.6; BMI 37.9
[2022-06-03] MEDS: Lactated Ringers 1,000 ML 15 ML IV ×2 (06:05→16:54)
--- NOTE | 2022-06-03 06:30 | RAD_ITS ---
STUDY: X-RAY - LUMBAR SPINE REASON FOR EXAM: Male, 52 years old. 360 FUSION L4-5 WITH LAMINECTOMY ON RIGHT TECHNIQUE: 1 view(s) of the lumbar spine were obtained. COMPARISON: None FINDINGS: The localization instrument is seen anterior to the L4-L5 disc space level. RAD/Spine 1 View Any Level IMPRESSION: The localization instrument is seen anterior to the L4-L5 disc space level. Electronically Signed: Roosevelt Dietrich MD at 11:22 EST ,
[2022-06-03 06:50] LABS: Bedside Glucose 154 mg/dL (74-106)
--- NOTE | 2022-06-03 07:30 | DISC_PTH ---
PATIENT: LAM RO LOC: MS3 U#:[id number] AGE/SX: 52/M ROOM: NM319 RE06/03/[address]: Dr. David Gregorio MD : 1970 BED: 1 DIS: 06/06/2022 SPEC #: [id number] RECD: 06/03/22 15:33 STATUS: PAM HEWITT #: [id number] JASIEL: 06/03/22 07:[address]: Yousif Mix DEPT: SURGICAL PATHOLOGY RECD BY: Santiago Cleaning ENTERED: 06/04/22 08:13 SP TYPE: DISC OTHR DR: MD Dr. David Calabrese MD Dr. Loren Kirchner, MD Tissues: Intervertebral disc, NOS Procedures: Surgery Specimen Level III HEADER OPERATION: ERAS, 360 lumbar fusion L4-5 with laminectomy L4-5 on right PRE-OP DIAGNOSIS: Herniated nucleus pulposus, lumbar TISSUE SUBMITTED: Lumbar disc MICROSCOPIC DIAGNOSIS Lumbar disc, L4-5, discectomy: Fragments of intervertebral disc with degenerative change. AM:jalen 06/05/2022 MICROSCOPIC DESCRIPTION Slides are reviewed. GROSS DESCRIPTION Received in fixative is one container labeled with the patient's name and designated lumbar disc. The specimen consists of multiple irregular fragments of conley, indurated tissue that in aggregate measure 6 x 6 x 3 cm. The largest piece measures 4 cm in greatest dimension. Doll Wig Maker tissue is submitted in two cassettes. / SJ:jalen 06/04/2022 TC:5 CPT: 51361
[2022-06-03] MEDS: THROMBIN (RECOMBINANT) 20,000 UNIT VIAL 20000 UNIT TOPICAL (09:09)
[2022-06-03] MEDS: Heparin 10,000 UNITS/10 ML Vial 10000 UNITS (09:09)
--- NOTE | 2022-06-03 11:08 | RAD_ITS ---
STUDY: X-RAY - LUMBAR SPINE REASON FOR EXAM: Male, 52 years old. 360 IMAGE 2 TECHNIQUE: Lateral view(s) of the lumbar spine were obtained. COMPARISON: None FINDINGS: Intraoperative film noted demonstrating postsurgical changes status post anterior fusion and disc spacer placement at L4-5 . RAD/Spine 1 View Any Level IMPRESSION: Status post anterior fusion at L4-5. Electronically Signed: Inderjit Barry MD at 22:52 EST ,
--- NOTE | 2022-06-03 13:01 | OP.PCM_ITS ---
Report of Operation Description of Surgical Findings:: Preoperative diagnosis: Herniated disc L4-5 with intractable low back pain and right leg pain. Postoperative diagnosis: The same Procedures: #1 anterior lumbar interbody fusion L4-5 CPT code 35538 #2 anterior spine plate L4-5 CPT code 57327/59 #3 insertion of titanium cage L4-5 CPT code 45509 #4 stem cells soaked autograft L4-5 CPT code 65917 Co-surgeon's: Dr. Mix and Dr. Bob rehabilitation assistant: Earnestine PAZ Anesthesia: General endotracheal by [facility] Estimated blood loss less than 50 cc Drains: None Complications: None Procedure: Patient was taken to the OR where he was placed in the supine position on the operating table. A Booker catheter was inserted. Neuro monitoring placed her leads on the patient. The abdomen was prepped and draped in standard fashion. The surgical approach is described in Dr. Bob's operative summary. Once L4-[address] Bob took a needle marker and did an intraoperative x-ray to confirm that the needle was indeed at L4-5. At that point I came in and I cauterized the middle of the disc so that we would not lose the site of its location. The needle was then removed and I began by using a long 10 blade to cut the anterior annulus out removed with pituitary rongeurs I used a pituitary rongeurs to remove more nucleus pulposus all the way back to near the posterior longitudinal ligament. After that I used ring curettes and bowl curettes to remove the cartilage off both endplates above and below. A jay bur that was then used to bur the space in such a way to take a cage with a good fit. I ended up testing of both the large and small cage 16 mm high we decided on the small cages it was a better fit. Once this was done I then used broach to broach the space repeatedly so we had good bleeding bone on both endplates. Noted at the beginning of the case that we obtained 60 cc of bone marrow aspirate from one of the patient's crests. This was handed off to the health information technician in the room who spun the blood the stem cells from the other cells concentrated them 10 times and gave him back to us in the OR. Then filled the cage with spongy allograft and soaked in the patient's own stem cells. This was then tamped into place and countersunk a 2 or 3 mm. A 27 mm plate was then used anteriorly I note that I did cauterize the anterior long itudinal ligament above and below the space and use double-action rongeurs to smooth out the slight spurs that he had. This made for a good fit for the 27 mm plate. Holding it in place we then used the awl to punch each of 4 holes 2 into the L4 and 2 and L5. This was followed by the insertion of the 30 mm screws at all 4 corners. The locking mechanisms were then activated. Note that Dr. John parra was instrumental in the placing of the plate and placing of the screws and punching holes in the 2 vertebra. We then took an intraoperative x-ray that demonstrated excellent position of the plate and the cage and the screws. An amniotic membrane was placed over the anterior plate to prevent adhesions to the major vessels. The closure was then described in Dr. Bob's operative summary. This is the end of operative summary on Ministerio Clark. This is Dr. Mix dictating.
--- NOTE | 2022-06-03 14:00 | RAD_ITS ---
STUDY: X-RAY - LUMBAR SPINE REASON FOR EXAM: Male, 52 years old. Intraoperative marker TECHNIQUE: Limited lateral view(s) of the lumbar spine were obtained. COMPARISON: None FINDINGS: Limited lateral view of the lumbar spine was performed in the operating room. Surgical instrument has been attached to the spinous process at L5. There has been previous anterior cervical fusion between L4 and L5 with a synthetic disc placed at L4-5. No intraoperative complications noted. RAD/Spine 1 View Any Level IMPRESSION: Surgical marker attached to the spinous process at L5 Surgical hardware at L4-5 with a synthetic disc at L4-5 free of complication Electronically Signed: Yaakov Crowe MD at 15:24 EST ,
--- NOTE | 2022-06-03 14:06 | OP.PCM_ITS ---
Report of Operation Date of Procedure: 06/03/22 Pre-Operative Diagnosis: Herniated disc L4-5 with intractable low back pain and right leg pain. Post-Operative Diagnosis: Same Surgery/Procedure Performed:: #1 anterior lumbar interbody fusion L4-5 CPT code 32489 #2 anterior spine plate L4-5 CPT code 42743/59 #3 insertion of titanium cage L4-5 CPT code 25330 #4 stem cells soaked autograft L4-5 CPT code 27041 Surgeon: Jamaal Type of Anesthesia: General Estimated Blood Loss (mL): 50 Description of Procedure: HPI: Patient is a 52-year-old male evaluated by Dr. Mix found to be appropriate for anterior lumbar interbody fusion. He was evaluated preoperatively as his body habitus is on the larger side but felt that despite this he was still good candidate for anterior approach. He is taken now for L4-L5 anterior exposure lumbar fusion. Description of procedure: Upon obtaining informed consent and verification correct patient procedure site the patient taken the operating where he was placed under general anesthesia. He was then positioned prepped and draped in usual sterile fashion a timeout was performed. Transverse incision was made in the left lower quadrant the level of the inferior aspect the umbilicus. Bovie electrocautery used to dissect down through subcutaneous tissue and down to the level of fascia. Self-retaining retractors put in position and the fascia was incised transversely with relaxing incisions at the medial inferior and lateral superior aspect. The rectus muscle was then mobilized circumferentially and retracted medially. Blunt dissection was then used to dissect the peritoneum off the posterior aspect of the abdominal wall and create a plane between the peritoneum and the posterior sheath. Posterior sheath was then incised vertically to further aid in exposure and further blunt dissection of the abdominal contents towards the midline was performed. Once we had been able to bluntly dissect midline a wet lap sponge was placed to hold her position in the rectus muscle allowed to fall back laterally. The Omni retractor was then brought in the position and renal retractor blades put into position retracting the rectus muscle laterally and the abdominal contents medially. Further blunt dissection was performed exposing the left iliac artery and left border of the aorta. Lumbar branches were ligated and divided further facilitating mobilization. The left iliac vein was circumferentially mobilized and search performed to identify the iliolumbar vein, which in this patient was not present. Once we have not mobilization both the left iliac artery and vein were retracted medially exposing the anterior surface of the spine. A pinpoint injury to the midportion of the left iliac vein occurred, either from retractor trauma or from an avulsed small branch. This was repaired with 6-0 Prolene U stitch with satisfactory stasis noted after suture repair. Piece of Surgicel was left adjacent to the repair site which was compressed by the retractor. Further adjustment of the retractor blades and blunt dissection was utilized to fully expose the anterior aspect of the spine. The midline was marked and a radiograph performed to confirm satisfactory positioning. At this point Dr. Mix performed his discectomy and placement of cage and plate which she will dictate in further detail. Upon completion retractors were removed sequentially and the retroperitoneum inspected for hemostasis. The area of vein repair was intact with no further bleeding and Surgicel was left in place. The abdominal contents allowed to return to their lower brule position and the rectus muscle returned towards the midline. The fascia was then closed with strata fix PDS suture after which the subcutaneous plane was irrigated with saline. Incision was then closed with 2-0 Vicryl 3-0 Vicryl for Monocryl and Dermabond for the skin. Dry sterile dressings were then applied and the patient was repositioned for posterior approach.
--- NOTE | 2022-06-03 14:13 | RAD_ITS ---
STUDY: X-RAY - LUMBAR SPINE REASON FOR EXAM: Male, 52 years old. 360 IMAGE 4 TECHNIQUE: 1 view(s) of the lumbar spine were obtained. COMPARISON: 1:57 PM today FINDINGS: Normal lumbar lordosis. Anterior Plate, screws and disc spacer at L4-5 unchanged. New posterior interspinous metallic plates. There is a normal alignment of the vertebrae. Normal vertebral bodies and endplates. Normal disc space heights. The soft tissue structures are unremarkable. RAD/Spine 1 View Any Level IMPRESSION: Limited one view projection and postop changes as above Electronically Signed: Vidal Evans MD at 20:49 EST ,
--- NOTE | 2022-06-03 16:01 | PCM.OPRPT ---
Report of Operation Description of Surgical Findings:: Preoperative diagnosis: Herniated disc L4-5 with right L5 radiculopathy Postoperative diagnosis: The same Procedures: #1 posterior fusion L4-5 CPT code 89146 #2 lumbar laminectomy L4-5 CPT code 84549 #3 segmental fixation L4-5 CPT code 04040 #4 bone allograft CPT code 65004 Surgeon: Dr. Mix phlebotomist lab assistant: Earnestine PAZ Anesthesia: General endotracheal by [facility] Estimated blood loss less than 50 cc Drains: Medium Hemovac Complications: None Procedure: Once the anterior procedure was completely finished and the abdomen closed we then moved the patient onto a Young frame in the prone position. Great care was taken to protect the bony prominences the ulnar nerves of both elbows the brachial plexus the cervical spine to genitalia and other bony prominences. Once properly positioned with neuro monitoring continuing they are monitoring the back was prepped and draped in standard fashion. Made a longitudinal incision centered centered over L4-5. Subcutaneous tissues were incised the length of the skin incision. I opened the lumbar fascia first to the right of the spinous processes and elevated the paravertebral muscles off the lamina of L4 and L5. An intraoperative x-ray was taken the demonstrated we were at the L4-5 level. Note that that there was a second x-ray that we took the first 1 we were at the L5-S1 level and we simply moved up 1 level. This was then marked so as to not lose the site of the level. Continued elevated paravertebral muscles all the way out over the facet. A Piper retractor was then put in place I then released the ligamentum flavum off the underside of the lamina of L4 the laminectomy of L4 was carried out with 45 degree Kerrison rongeurs. I also did a small laminectomy at the top of L5. I then remove the ligamentum flavum by first splitting it in the middle posteriorly with sharp dissection using a hockey-stick on the opposite side to cut against. I then released it off the top of the lamina of L5 using curettes the remaining section was then removed with the 45 degree Kerrison rongeurs all the way up to the lateral recess. The lateral recess was completely open. I then retracted the midline structures the dura that is in the nerve and was found to be free of pressure once I opened the lateral recess. There was a slight bulge there however now that the lateral recess was open and no longer pressed on the L5 nerve root. Also checked the foramen it was quite open. Bleeders were controlled with bipolar cautery and thrombin-soaked Gelfoam. We then opened the opposite side elevating the paravertebral muscles off the lamina of L4 and the lamina of L5. The super slide retractors were then put in place. We put the amniotic membrane directly over the laminotomy site to prevent adhesions in the future. Gelfoam was placed over the top of that. We then used a jay bur to bur the lamina for the lamina 5 on both sides. We remove the interspinous ligament between L4 and L5 and use double-action rongeurs to make it straight edges. We ended up using a 14 mm H graft. First we placed SPARC in both gutters and over the lamina's. We further put more spongy allograft over the top of that. We then put the H graft and placing tamped it into place we then applied the internal fixation device once it was properly positioned and we locked it into place and secured the locking mechanism. This provided an excellent construct. A medium Hemovac drain was inserted. We then closed the lumbar fascia using [id number] suture with #1 Vicryl followed by closure of the subcutaneous tissues in 2 layers first 0 Vicryl and then 2-0 Vicryl in interrupted fashion and skin was approximated using skin clips sterile dressings were then applied. The patient was then recovered in the OR he was moved to his hospital bed and taken to recovery in satisfactory condition. This had of operative summary on Ministerio Clark. This is Dr. Mix dictating.
[2022-06-03] MEDS: Lactated Ringers 1,000 ML 100 ML IV (20:30)
[2022-06-03] MEDS: OXcarbazepine 600 MG Tablet PO (20:54)
[2022-06-03] MEDS: Primidone 250 MG Tablet PO (20:54)
[2022-06-03] MEDS: Acetaminophen 500 MG Tablet 1000 MG PO (20:54)
[2022-06-03] MEDS: Gabapentin 300 MG Capsule PO (20:55)
[2022-06-03] MEDS: clonazePAM 1 MG Tablet PO (20:55)
[2022-06-03] MEDS: Cefazolin 1 GM/50 ML BAG IV (22:19)
[2022-06-03] MEDS: oxyCODONE 5 MG Tablet PO (22:26)
--- NOTE | 2022-06-03 22:41 | PCM.PN.HOSP ---
Subjective Subjective Patient s/p recent anterior lumbar interbody fusion, spine plate, titanium cage as well as autograft with assistance per vascular surgery secondary to ongoing intractable pain despite conservative interventions and treatments. Patient currently reports 10 out of 10 pain although primarily to the surgical incision site, worse with movement. He denies any radiculopathy symptoms at this time and states this is improved since his baseline previous. Patient initially had been sleeping and snoring appearing calm and not in any pain prior to being awoken for evaluation. Patient denies fevers, chills, nausea, emesis, abdominal pain, chest pain or dyspnea. Objective Data Objective Data Vital Signs: Vital Signs Temp Pulse Resp BP Pulse Ox O2 Del Method O2 Flow Rate 97.8 F 98 16 127/83 H 100 Nasal Cannula 3 06/03/22 19:53 06/03/22 19:53 06/03/22 19:53 06/03/22 19:53 06/03/22 19:53 06/03/22 19:53 06/03/22 19:53 Oxygen Flow Rate (L/min) 3 Oxygen Delivery Method Nasal Cannula Weight: 256 lb 13.416 oz Body Mass Index (BMI) 37.9 Intake & Output: Intake and Output for Last 24 Hours 06/01/22 06/02/22 06/03/22 23:59 23:59 23:59 Intake Total 4000 / 4000 Output Total 1100 / 1100 Balance 2900 / 2900 Lab / Micro Data Labs: Laboratory Results - last 24 hr 06/03/22 06:10: POC Glucose 154 H Radiography Diagnostic Testing: Radiology Impression Spine X-Ray 06/03/22 06:30 IMPRESSION: The localization instrument is seen anterior to the L4-L5 disc space level. Electronically Signed: Roosevelt Dietrich MD at 11:22 EST , Spine X-Ray 06/03/22 14:00 IMPRESSION: Surgical marker attached to the spinous process at L5 Surgical hardware at L4-5 with a synthetic disc at L4-5 free of complication Electronically Signed: Yaakov Crowe MD at 15:24 EST , Physical Exam Narrative Physical Examination: General: Awakens to stimuli, alert, oriented x3, cooperative, laying in the bed, although appears comfortable does report 10 out of 10 severe pain to the incision region. Skin: Normal color, normal turgor, no icterus, no cyanosis except recent OR with expected incisions with no drainage HEENT: AT/NC, EOMI, PERRLA, mildly dry MM, no carotid bruits or JVD noted, thickened neck. Lungs: Mild diminished, greater bases, appropriate effort no rales, ronchi or wheezing. Heart: Regular rate and rhythm; no gallop, rub audible. Abdomen: Soft, obese, NTTP, ND, distant normal BS, no HSM. Extremities: No cyanosis, no clubbing, mild bilateral ankle not markedly pitting edema, sensation. Neurological: Patient awakens to stimuli, alert once awoken, oriented as noted, cognitive function intact; pupils equally reactive to light and accommodation, cranial nerves II-XII grossly normal, moving all 4 extremities except expected limitation given recent lumbar surgery, sensation appropriate bilaterally, no current radicular symptoms, no specific focal deficits but strength moderately to severely global decrease given recent OR. Psychiatric: Affect appears fatigued otherwise normal, no acute evidence of depressive or anxiety feelings but does have underlying history. Assessment & Plan Assessment/Plan (1) Low back pain potentially associated with radiculopathy: PLAN: Plan The patient is a 52 y/o M w/ PMHx: Obesity, Seizure disorder, Anxiety and Depression/Panic disorder/PTSD, Chew tobacco use, Chronic lumbar back pain with RLE radiculopathy ongoing x > 3 years who presents to the [facility] on 06/03/22 for planned anterior lumbar interbody fusion, spine plate, titanium cage as well as autograft with assistance per vascular surgery secondary to ongoing intractable pain despite conservative interventions and treatments. #1. Herniated disc L4-5 with intractable lumbar back pain with right lower extremity radiculopathy: Failed conservative therapies and treatments, admitted per Dr. Mix for planned 06/03/2022 anterior lumbar interbody fusion L4-5, anterior spine plate L4-5, insertion of titanium cage L4-5, stem cell soaked autograft L4-5, post-operative pain management, bowel regimen, Booker catheter removal per surgery discretion, DVT Prophylaxis, PT/OT/CM per surgery discretion. #2. Seizure disorder: We will continue patient home antiepileptic medication including this evening's dose including primidone, oxcarbazepine, clonazepam as well as gabapentin. #3. Anxiety and depression/panic disorder/PTSD: We will continue patient home duloxetine, concurrently on clonazepam for underlying seizure disorder as well. #4. Chew Tobacco Abuse: Encouraged to tobacco cessation, inpatient consultation per RT, NR if desired. #5. Obesity: Weight loss and lifestyle changes encouraged. #6. DVT prophylaxis: SCDs, chemoprophylaxis per surgery discretion given recent OR. Evaluation Time spent evaluating chart, patient history, patient evaluation, care planning and discussion with specialists: 50 minutes. Charges/Coding Visit Charges Inpatient E&M: 32317 Subs Hosp L3
[2022-06-03] MEDS: diazePAM 5 MG Tablet PO (23:57)
[2022-06-04] VITALS (9 sets, daily range): BP systolic 112–135; BP diastolic 69–91; PULSE 97–109; RESP 18–20; TEMP 36.7–38.5; O2SAT 94–98
[2022-06-04] MEDS: oxyCODONE 5 MG Tablet PO ×4 (02:23→20:35)
[2022-06-04] MEDS: Morphine 4 MG/ML Syringe IV ×2 (03:49→05:47)
[2022-06-04] MEDS: clonazePAM 1 MG Tablet PO ×3 (05:29→21:14)
[2022-06-04] MEDS: Cefazolin 1 GM/50 ML BAG IV ×3 (05:29→20:36)
[2022-06-04] MEDS: Gabapentin 300 MG Capsule PO ×3 (05:29→21:14)
[2022-06-04] MEDS: Primidone 250 MG Tablet 125 MG PO ×2 (05:30→17:22)
--- NOTE | 2022-06-04 06:18 | RAD_ITS ---
EXAM: XR CHEST, 1 VIEW CLINICAL INDICATION: fever TECHNIQUE: Frontal view of the chest. This report was created using [employer] report generation technology. COMPARISON: None. FINDINGS: LUNGS AND PLEURAL SPACES: Low lung volumes limit the exam. Subsegmental atelectasis in the lung bases. No consolidations. No pneumothorax. No effusion. HEART: Unremarkable. Cardiac silhouette not enlarged. MEDIASTINUM: Central airways and mediastinal contour are unremarkable. BONES/JOINTS: Unremarkable. SOFT TISSUES: Unremarkable. RAD/Chest 1 View (Portable) IMPRESSION: Subsegmental atelectasis in the lung bases. No definite consolidation. Electronically Signed: Bro Chacko MD at 7:32 EST ,
[2022-06-04] MEDS: diazePAM 5 MG Tablet PO ×2 (06:33→14:02)
[2022-06-04] MEDS: Lactated Ringers 1,000 ML 100 ML IV (06:34)
[2022-06-04] MEDS: Acetaminophen 500 MG Tablet 1000 MG PO ×3 (06:35→21:14)
--- NOTE | 2022-06-04 07:38 | PCM.PN.HOSP ---
Subjective Subjective Follow-up medical management ? Status post lumbar laminectomy L4-L5 and posterior fusion L4-L5 -Patient had fever last evening. Objective Data Objective Data Vital Signs: Vital Signs Temp Pulse Resp BP Pulse Ox O2 Del Method O2 Flow Rate 98.4 F 109 H 18 113/69 95 Nasal Cannula 2 06/04/22 06:40 06/04/22 05:35 06/04/22 06:40 06/04/22 05:35 06/04/22 06:40 06/04/22 06:40 06/04/22 06:40 Oxygen Flow Rate (L/min) 2 Oxygen Delivery Method Nasal Cannula Weight: 116.5 kg Body Mass Index (BMI) 37.9 Intake & Output: Intake and Output for Last 24 Hours 06/02/22 06/03/22 06/04/22 23:59 23:59 23:59 Intake Total 4140 / 4740 2150 / 2150 Output Total 1100 / 1700 1270 / 1270 Balance 3040 / 3040 880 / 880 Radiography Diagnostic Testing: Radiology Impression Spine X-Ray 06/03/22 06:30 IMPRESSION: The localization instrument is seen anterior to the L4-L5 disc space level. Electronically Signed: Roosevelt Dietrich MD at 11:22 EST , Spine X-Ray 06/03/22 11:08 IMPRESSION: Status post anterior fusion at L4-5. Electronically Signed: Inderjit Barry MD at 22:52 EST , Spine X-Ray 06/03/22 14:00 IMPRESSION: Surgical marker attached to the spinous process at L5 Surgical hardware at L4-5 with a synthetic disc at L4-5 free of complication Electronically Signed: Yaakov Crowe MD at 15:24 EST , Spine X-Ray 06/03/22 14:13 IMPRESSION: Limited one view projection and postop changes as above Electronically Signed: Vidal Evans MD at 20:49 EST , Chest X-Ray 06/04/22 06:18 IMPRESSION: Subsegmental atelectasis in the lung bases. No definite consolidation. Electronically Signed: Bro Chacko MD at 7:32 EST , Physical Exam Narrative GENERAL: cooperative HEENT: Atraumatic; normocephalic EYES; Anicteric, Normal Conjunctiva NECK; supple, normal thyroid, RESPIRATORY: Diminished to auscultation CARDIOVASCULAR: Regular S1 S2, GI: soft, normoactive bowel sounds, : No Renal angle tenderness; EXTREMITIES: No edema, no clubbing, MUSCULOSKELETAL: no muscle wasting NEURO: Awake; no lateralizing signs. SKIN: No Rash PSYCH; Flat affect Assessment & Plan Assessment/Plan (1) Low back pain potentially associated with radiculopathy: PLAN: Plan Patient is a 52-year-old gentleman who underwent lumbar laminectomy by Dr. Mix following failed conservative treatment for intractable back pain 1. Herniated disc L4-5 with intractable lumbar back pain -status post 06/03/2022 anterior lumbar interbody fusion L4-5, anterior spine plate L4-5, insertion of titanium cage L4-5, stem cell soaked autograft L4-5, by Dr. Mix on 06/03/2021 patient postoperative management regarding pain management DVT prophylaxis as well as PT OT defer to primary service 2. Seizure disorder ? Did continue patient antiseizure medications 3. Depression with anxiety ? Patient is on duloxetine and clonazepam did continue 4. Tobacco dependence ? Patient chews tobacco cessation encouraged 5. Class II obesity with BMI of 37.9 ? Weight loss advised 6. Postop pyrexia ? Possibly related to atelectasis. Did order viral respiratory panel as well as CXR 7. DVT prophylaxis Deferred to primary service will recommend low molecular weight heparin if no contraindication Time spent in the patient's overall evaluation,decision-making process, review of diagnostic data, adjustment of management, discussion with other providers, nursing nursing and ancillary staff involved in patient's care documentation, 38 Minutes Charges/Coding Visit Charges Inpatient E&M: 07758 Subs Hosp L2
--- NOTE | 2022-06-04 08:15 | RAD_ITS ---
STUDY: X-RAY CHEST REASON FOR EXAM: Male, 52 years old. Fever TECHNIQUE: Single AP portable view of the chest. COMPARISON: Comparison is made with prior study done earlier in the day at 6:28 AM. FINDINGS: Elevation of the right hemidiaphragm. Mild increased linear markings at the left lung base suggestive of left basilar atelectasis. There is no demonstrated pleural abnormality. Cardiomegaly. Normal mediastinum and rj. Normal visualized pulmonary arteries. There is atherosclerotic tortuosity of the aortic arch and descending thoracic aorta. Normal visualized thoracic spine. Normal visualized ribs, clavicles, and shoulders. There is no demonstrated abnormality of the visualized soft tissue structures of the upper abdomen. RAD/Chest 1 View (Portable) IMPRESSION: Linear densities at the left lung base suggestive of linear atelectasis. Thyromegaly. Elevation of the right hemidiaphragm. Electronically Signed: Roosevelt Dietrich MD at 8:52 EST ,
[2022-06-04] MEDS: DULoxetine Hcl 20 MG Capsule PO (09:36)
[2022-06-04] MEDS: OXcarbazepine 600 MG Tablet PO ×2 (09:36→21:15)
--- NOTE | 2022-06-04 11:00 | CASEMGMT ---
KEL RAMIREZ Assessment: Face to Face with pt for initial transition planning/care coordination assessment. KEL RAMIREZ introduced self and role at [facility], pt voices understanding and consents to assessment. Pt is A/O x4 and answers all questions appropriately at this time. Pt lying in bed in no distress. Care providers, pharmacy, and demographics verified/updated. Admitting Dx: herniated nucleus pulposus, lumbar PCP:Mayito Specialists:EMPERATRIZ Mix; yung Ma Preferred Pharmacy: [facility] Insurance: [employer] Prescription Benefit: yes LNOK: Douglas Clark, son; Miles Clark, brother Living Arrangements: Pt lives alone in a single story home with 2 steps to enter. Pt reports he is I in ADL's and denies concerns at home. Transportation: Pt drives self and denies concerns with transportation. Pt brother will transport pt until he can drive again. DME/HHC/SNF: Pt has no DME, no hx of HHC or SNF stays. Pt states no concerns with going home at time of dc. Pt is interested in a FWW. Provided pt with a verbal local in network of DME companies, pt chose [employer]. Pt states no further concerns/needs. CM to follow. Advised pt to ask CM if any further question/concerns/needs arise, voices understanding. Pt Goal: Home Plan: Home, will obtain FWW.
--- NOTE | 2022-06-04 13:08 | PN.ORTHO_ITS ---
Subjective Subjective Postop day #1. Ministerio states that his spasms that he had earlier this morning are significantly better now. He is already been up and walked with a walker outside around the nurses station. Right leg pain is gone. That is all good news. The dressing is dry he still has enough drainage that we will leave the d rain in 1 more day. I reviewed the chest x-ray that he had done this morning when he had they called me he does indeed have linear atelectasis at the bottom particularly of his left lung is probably the cause of the fever that he had this morning. But neurologically he is intact he states that he is already has flatulence. That is good news. I will see him again tomorrow tomorrow we will change his dressing on the back and remove the drain. Objective Data Objective Data Vital Signs: Vital Signs Temp Pulse Resp BP Pulse Ox O2 Del Method O2 Flow Rate 99.4 F H 105 H 20 H 123/83 H 94 Room Air 2 06/04/22 10:59 06/04/22 10:59 06/04/22 10:59 06/04/22 10:59 06/04/22 10:59 06/04/22 10:59 06/04/22 10:22 Oxygen Flow Rate (L/min) 2 Oxygen Delivery Method Room Air Weight: 256 lb 13.416 oz Body Mass Index (BMI) 37.9 Intake & Output: Intake and Output for Last 24 Hours 06/02/22 06/03/22 06/04/22 23:59 23:59 23:59 Intake Total 4140 / 4740 3054 / 3054 Output Total 1100 / 1700 1570 / 1570 Balance 3040 / 3040 1484 / 1484 Radiography Diagnostic Testing: Radiology Impression Spine X-Ray 06/03/22 11:08 IMPRESSION: Status post anterior fusion at L4-5. Electronically Signed: Inderjit Barry MD at 22:52 EST , Spine X-Ray 06/03/22 14:00 IMPRESSION: Surgical marker attached to the spinous process at L5 Surgical hardware at L4-5 with a synthetic disc at L4-5 free of complication Electronically Signed: Yaakov Crowe MD at 15:24 EST , Spine X-Ray 06/03/22 14:13 IMPRESSION: Limited one view projection and postop changes as above Electronically Signed: Vidal Evans MD at 20:49 EST , Chest X-Ray 06/04/22 06:18 IMPRESSION: Subsegmental atelectasis in the lung bases. No definite consolidation. Electronically Signed: Bro Chacko MD at 7:32 EST , Chest X-Ray 06/04/22 08:15 IMPRESSION: Linear densities at the left lung base suggestive of linear atelectasis. Thyromegaly. Elevation of the right hemidiaphragm. Electronically Signed: Roosevelt Dietrich MD at 8:52 EST ,
[2022-06-04] MEDS: Tamsulosin HCl 0.4 MG Capsule PO (17:16)
[2022-06-04] MEDS: 0.9% Saline Lock 10 ML Syringe IV (20:36)
[2022-06-04] MEDS: Zolpidem Tartrate 5 MG Tablet PO (21:14)
[2022-06-04] MEDS: Primidone 250 MG Tablet PO (21:15)
[2022-06-05] VITALS (7 sets, daily range): BP systolic 108–150; BP diastolic 66–93; PULSE 90–105; RESP 16–18; TEMP 36.9–37.3; O2SAT 90–100
[2022-06-05] MEDS: oxyCODONE 5 MG Tablet PO ×3 (05:09→20:55)
[2022-06-05] MEDS: clonazePAM 1 MG Tablet PO ×3 (05:09→20:55)
[2022-06-05] MEDS: Cefazolin 1 GM/50 ML BAG IV ×3 (05:09→21:10)
[2022-06-05] MEDS: Gabapentin 300 MG Capsule PO ×3 (05:09→20:55)
[2022-06-05] MEDS: Acetaminophen 500 MG Tablet 1000 MG PO ×3 (05:09→20:55)
[2022-06-05 06:55] LABS: Absolute Lymphocyte Count 0.59 X10^3/uL (0.83-4.51); Basophil# 0.05 X10^3/uL; Basophil% 0.5 % (0-1); Hematocrit 36.1 % (40-54); Hemoglobin 11.3 g/dL (13.0-16.5); Lymphocyte # 0.59 X10^3/ul (0.83-4.51); Lymphocyte % 5.6 % (19-41); Mean Corp Hgb Conc 31.3 g/dL (32-36); Mean Corpuscular Hgb 29.3 pg (27.0-32.0); Mean Corpuscular Volume 93.5 fL (80-94); Mean Platelet Vol. 10.6 fl (6.2-12.0); Monocyte# 0.84 X10^3/uL; NRBC Flagged by Analyzer 0 % (0-5); Neutrophil % 85.2 % (47-70); POSITIVE DIFFERENTIAL YES; Platelet Count 203 K/mm3 (150-450); RBC Distribution Width CV 13.2 % (11.6-14.6); RBC Distribution Width SD 45.4 fl (35.1-43.9); Red Blood Count 3.86 M/mm3 (4.6-6.2); White Blood Count 10.6 K/mm3 (4.4-11.0)
[2022-06-05 07:01] LABS: Differential Indicated SCAN CRITERIA MET
[2022-06-05 07:18] LABS: Anion Gap 6 (5-15); BUN 8 mg/dL (7-18); BUN/Creat Ratio 9.3 RATIO (10-20); Calcium,Total 8.1 mg/dL (8.5-10.1); Chloride 101 mmol/L (98-107); Creatinine, Serum 0.86 mg/dL (0.70-1.30); EST Glomerular Filtration Rate 99 mL/min (>60); Est Glom Filt Rate - Afr Amer 120 mL/min (>60); Estimated Creatinine Clearance 100.48 ml/min; Glucose 171 mg/dL (74-106); Magnesium 1.9 mg/dL (1.6-2.6); Phosphorus 1.7 mg/dL (2.5-4.9); Potassium 3.7 mmol/L (3.5-5.1); Sodium Level 136 mmol/L (136-145)
--- NOTE | 2022-06-05 08:13 | PCM.PN.HOSP ---
Subjective Subjective Follow-up urinary retention Patient apparently went into urinary retention on 06/04/2021, had to be started on Flomax Objective Data Objective Data Vital Signs: Vital Signs Temp Pulse Resp BP Pulse Ox O2 Del Method O2 Flow Rate 98.9 F 102 H 16 109/66 97 Nasal Cannula 2 06/05/22 02:05 06/05/22 02:05 06/05/22 02:05 06/05/22 02:05 06/05/22 02:05 06/05/22 02:05 06/05/22 02:05 Oxygen Flow Rate (L/min) 2 Oxygen Delivery Method Nasal Cannula Weight: 116.5 kg Body Mass Index (BMI) 37.9 Intake & Output: Intake and Output for Last 24 Hours 06/03/22 06/04/22 06/05/22 23:59 23:59 23:59 Intake Total 4140 / 4740 4154 / 4154 50 / 50 Output Total 1100 / 1700 2415 / 2415 705 / 705 Balance 3040 / 3040 1739 / 1739 -655 / -655 Lab / Micro Data Result Diagrams: 06/05/22 06:40 06/05/22 06:40 Labs: Laboratory Results - last 24 hr 06/05/22 06:40: WBC 10.6, RBC 3.86 L, Hgb 11.3 L, Hct 36.1 L, MCV 93.5, MCH 29.3, MCHC 31.3 L, RDW Std Deviation 45.4 H, RDW Coeff of Yasmani 13.2, Plt Count 203, MPV 10.6, Immature Gran % (Auto) 0.700, Neut % (Auto) 85.2 H, Lymph % (Auto) 5.6 L, [place] % (Auto) 8.0, Eos % (Auto) 0.0, Baso % (Auto) 0.5, Absolute Neuts (auto) 9.0 H, Absolute Lymphs (auto) 0.59 L, Nucleated RBC % 0 06/05/22 06:40: Sodium 136, Potassium 3.7, Chloride 101, Carbon Dioxide 29.0, Anion Gap 6, BUN 8, Creatinine 0.86, Estim Creat Clear Calc 100.48, Est GFR (MDRD) Af Amer 120, Est GFR (MDRD) Non-Af 99, BUN/Creatinine Ratio 9.3 L, Glucose 171 H, Calcium 8.1 L, Phosphorus 1.7 L, Magnesium 1.9 Micro: Microbiology 06/04/22 10:09 Mucosa - Nasopharyngeal Respiratory Panel (PCR) - Final Radiography Diagnostic Testing: Radiology Impression Chest X-Ray 06/04/22 08:15 IMPRESSION: Linear densities at the left lung base suggestive of linear atelectasis. Thyromegaly. Elevation of the right hemidiaphragm. Electronically Signed: Roosevelt Dietrich MD at 8:52 EST , Physical Exam Narrative GENERAL: cooperative HEENT: Atraumatic; normocephalic EYES; Anicteric, Normal Conjunctiva NECK; supple, normal thyroid, RESPIRATORY: Diminished to auscultation CARDIOVASCULAR: Regular S1 S2, GI: soft, normoactive bowel sounds, : No Renal angle tenderness; EXTREMITIES: No edema, no clubbing, MUSCULOSKELETAL: no muscle wasting NEURO: Awake; no lateralizing signs. SKIN: No Rash PSYCH; Flat affect Assessment & Plan Assessment/Plan (1) Low back pain potentially associated with radiculopathy: PLAN: Plan Patient is a 52-year-old gentleman who underwent lumbar laminectomy by Dr. Mix following failed conservative treatment for intractable back pain 1. Herniated disc L4-5 with intractable lumbar back pain -status post 06/03/2022 anterior lumbar interbody fusion L4-5, anterior spine plate L4-5, insertion of titanium cage L4-5, stem cell soaked autograft L4-5, by Dr. Mix on 06/03/2021 patient postoperative management regarding pain management DVT prophylaxis as well as PT OT defer to primary service 2. Seizure disorder ? Did continue patient antiseizure medications 3. Depression with anxiety ? Patient is on duloxetine and clonazepam did continue 4. Tobacco dependence ? Patient chews tobacco cessation encouraged 5. Class II obesity with BMI of 37.9 ? Weight loss advised 6. Postop pyrexia ? Possibly related to atelectasis. Did order viral respiratory panel as well as CXR 7. DVT prophylaxis Deferred to primary service will recommend low molecular weight heparin if no contraindication 8. Urinary retention ? Following surgery patient started on Flomax Time spent in the patient's overall evaluation,decision-making process, review of diagnostic data, adjustment of management, discussion with other providers, nursing nursing and ancillary staff involved in patient's care documentation, 38 Minutes Charges/Coding Visit Charges Inpatient E&M: 39504 Subs Hosp L2
[2022-06-05] MEDS: Primidone 250 MG Tablet 125 MG PO ×2 (09:12→18:00)
[2022-06-05] MEDS: OXcarbazepine 600 MG Tablet PO ×2 (10:59→20:55)
[2022-06-05] MEDS: Ensure Surgery 237 ML LIQUID PO (18:00)
[2022-06-05] MEDS: Tamsulosin HCl 0.4 MG Capsule PO (18:01)
[2022-06-05] MEDS: Primidone 250 MG Tablet PO (20:54)
[2022-06-05] MEDS: Zolpidem Tartrate 5 MG Tablet PO (20:55)
[2022-06-05] MEDS: 0.9% Saline Lock 10 ML Syringe IV ×2 (20:56→21:10)
[2022-06-06 02:35] VITALS: BP 126/80; PULSE 106; RESP 18; TEMP 37.2; O2SAT 94
[2022-06-06] MEDS: Gabapentin 300 MG Capsule PO ×2 (05:34→14:35)
[2022-06-06] MEDS: Acetaminophen 500 MG Tablet 1000 MG PO ×2 (05:34→15:45)
[2022-06-06] MEDS: oxyCODONE 5 MG Tablet PO (05:34)
[2022-06-06] MEDS: clonazePAM 1 MG Tablet PO ×2 (05:34→14:35)
[2022-06-06] MEDS: Cefazolin 1 GM/50 ML BAG IV ×2 (05:35→14:35)
[2022-06-06 07:43] LABS: Absolute Lymphocyte Count 0.79 X10^3/uL (0.83-4.51); Absolute Neutrophil Count 8.1 X10^3/uL (2.0-7.7); Basophil# 0.05 X10^3/uL; Basophil% 0.5 % (0-1); Hematocrit 34.7 % (40-54); Hemoglobin 10.9 g/dL (13.0-16.5); Lymphocyte # 0.79 X10^3/ul (0.83-4.51); Lymphocyte % 8.1 % (19-41); Mean Corp Hgb Conc 31.4 g/dL (32-36); Mean Corpuscular Hgb 29.2 pg (27.0-32.0); Mean Platelet Vol. 11.2 fl (6.2-12.0); Monocyte# 0.71 X10^3/uL; Monocyte% 7.3 % (0-10); NRBC Flagged by Analyzer 0 % (0-5); Neutrophil # 8.08 X10^3/uL (2.7-7.7); Neutrophil % 83.4 % (47-70); Platelet Count 195 K/mm3 (150-450); RBC Distribution Width SD 44.4 fl (35.1-43.9); Red Blood Count 3.73 M/mm3 (4.6-6.2); White Blood Count 9.7 K/mm3 (4.4-11.0)
[2022-06-06 08:11] LABS: Anion Gap 6 (5-15); BUN 8 mg/dL (7-18); Calcium,Total 8.4 mg/dL (8.5-10.1); Chloride 100 mmol/L (98-107); EST Glomerular Filtration Rate 107 mL/min (>60); Est Glom Filt Rate - Afr Amer 130 mL/min (>60); Estimated Creatinine Clearance 108.01 ml/min; Glucose 188 mg/dL (74-106); Potassium 3.5 mmol/L (3.5-5.1); Sodium Level 135 mmol/L (136-145)
[2022-06-06] MEDS: Ensure Surgery 237 ML LIQUID PO ×2 (08:31→13:21)
[2022-06-06] MEDS: Primidone 250 MG Tablet 125 MG PO ×2 (08:31→16:31)
--- NOTE | 2022-06-06 08:49 | PCM.PN.HOSP ---
Subjective Subjective Same diagnostic data reviewed significant for hyperglycemia ordered hemoglobin A1c Objective Data Objective Data Vital Signs: Vital Signs Temp Pulse Resp BP Pulse Ox O2 Del Method O2 Flow Rate 98.9 F 106 H 18 126/80 H 94 Room Air 2 06/06/22 02:35 06/06/22 02:35 06/06/22 02:35 06/06/22 02:35 06/06/22 02:35 06/06/22 02:35 06/05/22 13:49 Oxygen Flow Rate (L/min) 2 Oxygen Delivery Method Room Air Weight: 116.5 kg Body Mass Index (BMI) 37.9 Intake & Output: Intake and Output for Last 24 Hours 06/04/22 06/05/22 06/06/22 23:59 23:59 23:59 Intake Total 4154 / 4154 1250 / 1250 50 / 50 Output Total 2415 / 2415 2280 / 2280 650 / 650 Balance 1739 / 1739 -1030 / -1030 -600 / -600 Lab / Micro Data Result Diagrams: 06/06/22 07:05 06/06/22 07:05 Labs: Laboratory Results - last 24 hr 06/06/22 07:05: WBC 9.7, RBC 3.73 L, Hgb 10.9 L, Hct 34.7 L, MCV 93.0, MCH 29.2, MCHC 31.4 L, RDW Std Deviation 44.4 H, RDW Coeff of Yasmani 13.0, Plt Count 195, MPV 11.2, Immature Gran % (Auto) 0.700, Neut % (Auto) 83.4 H, Lymph % (Auto) 8.1 L, [place] % (Auto) 7.3, Eos % (Auto) 0.0, Baso % (Auto) 0.5, Absolute Neuts (auto) 8.1 H, Absolute Lymphs (auto) 0.79 L, Nucleated RBC % 0 06/06/22 07:05: Sodium 135 L, Potassium 3.5, Chloride 100, Carbon Dioxide 29.0, Anion Gap 6, BUN 8, Creatinine 0.80, Estim Creat Clear Calc 108.01, Est GFR (MDRD) Af Amer 130, Est GFR (MDRD) Non-Af 107, BUN/Creatinine Ratio 10.0, Glucose 188 H, Calcium 8.4 L Micro: Microbiology 06/04/22 10:09 Mucosa - Nasopharyngeal Respiratory Panel (PCR) - Final Physical Exam Narrative GENERAL: cooperative HEENT: Atraumatic; normocephalic EYES; Anicteric, Normal Conjunctiva NECK; supple, normal thyroid, RESPIRATORY: Diminished to auscultation CARDIOVASCULAR: Regular S1 S2, GI: soft, normoactive bowel sounds, : No Renal angle tenderness; EXTREMITIES: No edema, no clubbing, MUSCULOSKELETAL: no muscle wasting NEURO: Awake; no lateralizing signs. SKIN: No Rash PSYCH; Flat affect Assessment & Plan Assessment/Plan (1) Low back pain potentially associated with radiculopathy: PLAN: Plan Patient is a 52-year-old gentleman who underwent lumbar laminectomy by Dr. Mix following failed conservative treatment for intractable back pain 1. Herniated disc L4-5 with intractable lumbar back pain -status post 06/03/2022 anterior lumbar interbody fusion L4-5, anterior spine plate L4-5, insertion of titanium cage L4-5, stem cell soaked autograft L4-5, by Dr. Mix on 06/03/2021 patient postoperative management regarding pain management DVT prophylaxis as well as PT OT defer to primary service 2. Seizure disorder ? Did continue patient antiseizure medications 3. Depression with anxiety ? Patient is on duloxetine and clonazepam did continue 4. Tobacco dependence ? Patient chews tobacco cessation encouraged 5. Class II obesity with BMI of 37.9 ? Weight loss advised 6. Postop pyrexia ? Possibly related to atelectasis. Did order viral respiratory panel as well as CXR 7. DVT prophylaxis Deferred to primary service will recommend low molecular weight heparin if no contraindication 8. Urinary retention ? Following surgery patient started on Flomax 9. Hyperglycemia ? Ordered hemoglobin A1c 10. Anemia - Secondary to chronic disorder less acute blood loss anemia following surgery monitoring H&H and transfuse if patient becomes symptomatic or hemoglobin falls below 7 Time spent in the patient's overall evaluation,decision-making process, review of diagnostic data, adjustment of management, discussion with other providers, nursing nursing and ancillary staff involved in patient's care documentation, 38 Minutes Charges/Coding Visit Charges Inpatient E&M: 61987 Subs Hosp L2
[2022-06-06 09:22] LABS: Hemoglobin A1c 6.5 % (3.8-5.6)
[2022-06-06 10:21] VITALS: BP 110/65; PULSE 110; RESP 18; TEMP 37.2; O2SAT 94
--- NOTE | 2022-06-06 10:25 | CASEMGMT ---
Addendum entered by Peri Lepe 06/06/22 15:48: Reviewed homegoing instructions with pt for oxygen, he asks that his brother also be notified. TC to pt brother, received vm. Left message to call nurse's station. Updated charge nurse and pt nurse of this. Addendum entered by Peri Lepe 06/06/22 15:12: RN CM in to pt room, discussed local in network DME companies should pt need home oxygen, pt chose [employer]. Green sheet on chart in case pt needs. Original Note: Referral to [employer] via [facility] for FWW at this time for dc today.
[2022-06-06 10:27] VITALS: O2SAT 97
[2022-06-06 10:31] VITALS: O2SAT 90
[2022-06-06] MEDS: DULoxetine Hcl 20 MG Capsule PO (10:53)
[2022-06-06] MEDS: OXcarbazepine 600 MG Tablet PO (10:53)
[2022-06-06 15:47] VITALS: BP 138/92; PULSE 100; RESP 18; TEMP 37; O2SAT 94
--- NOTE | 2022-06-06 15:56 | DCINST_ITS ---
Discharge Instructions Activity May shower in (days): 2 May resume sexual activity in: 4-6 weeks Weight Bearing Status: Full weight bearing Lifting Restrictions: 20# Follow Up Care Test Results: Test results from this visit will be discussed in further detail at your follow- up appointment, if applicable. Discharge Plan Admission Admit Date/Time: 06/03/22 05:36 Primary Reason for Your Visit: back surgery Attending Provider: David Gregorio Primary Care Provider: Shi Edmond Consulting Providers: Jannette Zavaleta ; Yousif Mix Discharge Orders/Prescriptions Prescriptions: New tamsulosin 0.4 mg Capsule 0.4 mg PO DAILY@1730 Qty: 60 0RF No Action clonazepam 1 mg tablet 1 mg PO TID Label Comments: TAKE 1 TABLET BY MOUTH THREE TIMES DAILY gabapentin 300 mg capsule 300 mg PO TID Label Comments: TAKE 1 CAPSULE THREE TIMES DAILY oxcarbazepine 600 mg tablet 600 mg PO BID Label Comments: TAKE 1 TABLET TWICE DAILY acetaminophen 500 mg Tablet 1,000 mg PO TID duloxetine 20 mg capsule,delayed release(DR/EC) 20 mg PO DAILY primidone 250 mg Tablet 250 mg PO QHS primidone 250 mg Tablet 125 mg PO BID Rx Instructions: takes at breakfast and dinner oxycodone-acetaminophen 5-325 mg tablet 1 tab PO Q6H PRN (Reason: pain) 10 Days Qty: 40 0RF Referrals / Follow Up: Shi Edmond MD [Primary Care Provider] - Disposition Disposition (needs filled in before D/C Order can be placed): Home, Self Care
--- NOTE | 2022-06-06 15:59 | PCM.DC.SUM ---
Providers Date of Admission: 06/03/22 Primary Care Physician: Dr. Shi Edmond MD Attending Physician: This is discharge summary on Ministerio Clark. This patient was admitted on Thursday the . That day he underwent 360 degree fusion at the L4-5 level including a laminectomy at L4-5 on the right side. He tolerated the procedure well. He has had a partial ileus since his surgery as expected. He has better bowel sounds now he has been having a lot of flatulence. I change his dressing yesterday it was dry and healing well. I discussed the discharge with Dr. Gregorio the hospitalist on the case. He agreed that the patient was ready to go home. He is being sent home with a bottle of oxygen because of likely atelectasis which we saw on an x-ray earlier. He also has taken a walker with him. He reports that his right leg pain is completely gone. He was told that he can start a soft diet tomorrow morning. Also gave him oxycodone acetaminophen 5/325 for pain control he understands that it is also constipating not to take any more than he has to. He already has an appointment to see me in the office. He knows to call the hospital or the office in the event that he needs to get a hold of me prior to his visit at my office. This is the end of discharge summary on Ministerio Clark. This is Dr. Mix dictating. Consultations 06/03/22 19:45 Consult: Hospitalist Routine Consulting Provider: Jannette Zavaleta Reason for Consult: Medical Management EMERGENT Consult: No MD Notified: Yes Date Notified: 06/03/22 Time Notified: 20:05 Method of Notification: Verbal Diagnosis Discharge Diagnosis (1) Low back pain potentially associated with radiculopathy: Status: Acute Code(s): M54.50 - Low back pain, unspecified Medications at Discharge Home Medications clonazepam 1 mg tablet 1 mg PO TID EPILEPSY 10/17/20 gabapentin 300 mg capsule 300 mg PO TID NERVE PAIN 10/17/20 oxcarbazepine 600 mg tablet 600 mg PO BID EPILEPSY 10/17/20 acetaminophen 500 mg tablet 1,000 mg PO TID PAIN 04/01/22 duloxetine 20 mg capsule,delayed release 20 mg PO DAILY DEPRESSION 04/01/22 primidone 250 mg tablet 125 mg PO BID epilepsy 06/02/22 primidone 250 mg tablet 250 mg PO QHS Check with primary doctor 06/02/22 oxycodone-acetaminophen 5 mg-325 mg tablet 1 tab PO Q6H PRN pain 10 days #40 tabs 06/06/22 tamsulosin 0.4 mg capsule 0.4 mg PO DAILY@1730 #60 caps 06/06/22 Weight / BMI Weight Weight: 256 lb 13.416 oz Body Mass Index (BMI) 37.9 ABG / Lab / Microbiology Data Result Diagrams: 06/06/22 07:05 06/06/22 07:05 Laboratory: Laboratory Results - last 24 hr 06/06/22 07:05: WBC 9.7, RBC 3.73 L, Hgb 10.9 L, Hct 34.7 L, MCV 93.0, MCH 29.2, MCHC 31.4 L, RDW Std Deviation 44.4 H, RDW Coeff of Yasmani 13.0, Plt Count 195, MPV 11.2, Immature Gran % (Auto) 0.700, Neut % (Auto) 83.4 H, Lymph % (Auto) 8.1 L, [place] % (Auto) 7.3, Eos % (Auto) 0.0, Baso % (Auto) 0.5, Absolute Neuts (auto) 8.1 H, Absolute Lymphs (auto) 0.79 L, Nucleated RBC % 0 06/06/22 07:05: Sodium 135 L, Potassium 3.5, Chloride 100, Carbon Dioxide 29.0, Anion Gap 6, BUN 8, Creatinine 0.80, Estim Creat Clear Calc 108.01, Est GFR (MDRD) Af Amer 130, Est GFR (MDRD) Non-Af 107, BUN/Creatinine Ratio 10.0, Glucose 188 H, Calcium 8.4 L 06/06/22 07:05: Hemoglobin A1c 6.5 H Microbiology: Microbiology 06/04/22 10:09 Mucosa - Nasopharyngeal Respiratory Panel (PCR) - Final D/C Instructions May shower in (days): 2 May resume sexual activity in: 4-6 weeks Weight Bearing Status: Full weight bearing Meaningful Use Info Meaningful Use Diagnoses (Choose all that apply): None applicable Discharge Plan Admission Admit Date/Time: 06/03/22 05:36 Primary Reason for Your Visit: back surgery Attending Provider: David Gregorio Primary Care Provider: Shi Edmond Consulting Providers: Jannette Zavaleta ; Yousif Mix Discharge Orders/Prescriptions Prescriptions: New tamsulosin 0.4 mg Capsule 0.4 mg PO DAILY@1730 Qty: 60 0RF No Action clonazepam 1 mg tablet 1 mg PO TID Label Comments: TAKE 1 TABLET BY MOUTH THREE TIMES DAILY gabapentin 300 mg capsule 300 mg PO TID Label Comments: TAKE 1 CAPSULE THREE TIMES DAILY oxcarbazepine 600 mg tablet 600 mg PO BID Label Comments: TAKE 1 TABLET TWICE DAILY acetaminophen 500 mg Tablet 1,000 mg PO TID duloxetine 20 mg capsule,delayed release(DR/EC) 20 mg PO DAILY primidone 250 mg Tablet 250 mg PO QHS primidone 250 mg Tablet 125 mg PO BID Rx Instructions: takes at breakfast and dinner oxycodone-acetaminophen 5-325 mg tablet 1 tab PO Q6H PRN (Reason: pain) 10 Days Qty: 40 0RF Referrals / Follow Up: Shi Edmond MD [Primary Care Provider] - Disposition Disposition (needs filled in before D/C Order can be placed): Home, Self Care
[2022-06-06 16:08] VITALS: BP 138/92; PULSE 100; RESP 18; TEMP 37; O2SAT 94
[2022-06-06] MEDS: Tamsulosin HCl 0.4 MG Capsule PO (16:31)
== END 2022-06-06 17:05 | disposition home or self-care (01) | DRG 454 ==
LOC: ACINP 06:14 → MS3 16:33
PROVIDERS: Admitting Provider Orthopaedic Surgery; PCP Internal Medicine; Referring Provider Orthopaedic Surgery; Visit Provider Internal Medicine
PROC: 0SG00A0 Fusion of Lumbar Vertebral Joint with Interbody Fusion Device, Anterior Approach, Anterior Column, Open Approach (ICD-10-PCS; principal; 2022-06-03 07:00)
DX: M51.16 Intervertebral disc disorders with radiculopathy, lumbar region (principal); F33.2 Major depressive disorder, recurrent severe without psychotic features; D63.8 Anemia in other chronic diseases classified elsewhere; G40.909 Epilepsy, unspecified, not intractable, without status epilepticus; F17.220 Nicotine dependence, chewing tobacco, uncomplicated; F41.9 Anxiety disorder, unspecified; G62.9 Polyneuropathy, unspecified; F43.10 Post-traumatic stress disorder, unspecified; R33.9 Retention of urine, unspecified; R73.9 Hyperglycemia, unspecified; Z79.899 Other long term (current) drug therapy; E66.9 Obesity, unspecified; Z68.37 Body mass index [BMI] 37.0-37.9, adult
CPT/HCPCS: 36415; 71045; 72020; 80048; 82962; 83036; 83735; 84100; 85025; 87633; 88304; 94762; 97162; 97530; 99252; C1713; J7050; J7120; A4216; G0463; J2405

== ENCOUNTER 2022-09-12 06:57 | Day surgery (SDC) | payer OTHER, SELFPAY ==
[2022-09-12] VITALS (7 sets, daily range): BP systolic 112–136; BP diastolic 73–82; PULSE 51–93; RESP 16; TEMP 36.2–36.6; O2SAT 93–99; BMI 35.1
[2022-09-12] MEDS: Lactated Ringers 1,000 ML 15 ML IV (07:21)
--- NOTE | 2022-09-12 08:00 | H&P.OPEN ---
HPI - General HPI Narrative LAM RO, is a 52 M who presents for screening colonoscopy. Patient has never had a screening colonoscopy in the past. He denies any abdominal pain or blood in the stool. He has no family history of colon cancer. [facility] Medical History Alcohol use Anxiety Arthritis Back pain Chewing tobacco nicotine dependence Epilepsy History of edema History of open arm wound History of pain when walking Hx of fracture of foot Injury of back Injury of head and neck Loss of consciousness Major depressive disorder, recurrent severe without psychotic features Neuropathy Panic disorder PTSD (post-traumatic stress disorder) Seizures Shortness of breath on exertion Wears glasses Home Medications clonazepam 1 mg tablet 1 mg PO TID EPILEPSY 10/17/20 [History Last Taken 09/12/22] gabapentin 300 mg capsule 300 mg PO TID NERVE PAIN 10/17/20 [History Last Taken 09/12/22] oxcarbazepine 600 mg tablet 600 mg PO BID EPILEPSY 10/17/20 [History Last Taken 09/12/22] primidone 250 mg tablet 125 mg PO BID epilepsy 06/02/22 [History Last Taken 09/12/22] primidone 250 mg tablet 250 mg PO QHS Check with primary doctor 06/02/22 [History Last Taken Unknown] Allergy/AdvReac Type Severity Reaction Status Date / Time aspirin Allergy Severe Anaphylaxis Verified 09/12/22 07:16 ibuprofen [From Motrin] Allergy Angioedema Verified 09/12/22 07:16 naproxen [From Naprosyn] Allergy Angioedema Verified 09/12/22 07:16 divalproex sodium AdvReac Other Verified 09/12/22 07:16 [From Depakote] Family History Father Lung cancer Sister Pancreatic cancer Aunt Mental disorder Surgical History Hx of ankle fusion Previous back surgery Social History Smoking Status: Former smoker Tobacco: How many years used: 6 Smokeless tobacco user: chewing tobacco alcohol intake: never what type of physical activity do you participate in: walking frequency: 1-2 times per week Past Medical/Surgical History Planned Operation Planned Operative Procedure/s: CSCOPE Previous Hospitalizations/Surgeries HX Hospitalizations: Yes (BACK SURGERY) Any Problems With Anesthesia: No You/Your Family Experience Fever (Hyperthermia) With Anes: No Cholinesterase deficiency: No Cardiovascular Hx Hypertension: No Respiratory Hx Chronic Obstructive Pulmonary Disease (COPD): No Hx Asthma: No Hx Emphysema: No Hx Sleep Apnea: No Hx Respiratory Tract Infection/Cold (presently): No Do You Snore Loudly (louder than talking or can be heard): Yes Do You Often Feel Tired/ Fatigued/ Sleepy Dring Daytime?: No Has Anyone Observed You Stop Breathing During Sleep?: No Result (for STOP score): Negative Smoking Status: Former smoker Neurological Hx Seizures: Yes Hx Back Injury/Pain: Yes (INJECTIONS, THERAPY IN PAST) Does patient have nerve stimulator: No Miscellaneous Recent Exposure to Contagious Disease: No Allergies aspirin Allergy (Severe, Verified 09/12/22 07:16) Anaphylaxis ibuprofen [From Motrin] Allergy (Verified 09/12/22 07:16) Angioedema naproxen [From Naprosyn] Allergy (Verified 09/12/22 07:16) Angioedema divalproex sodium [From Depakote] Adverse Reaction (Verified 09/12/22 07:16) Other elevated liver enzymes Discharge Is Pt Admitted From a Residential, or a Residential: No After D/C, Where Do you Plan to Go: Return Home Vital Signs Vital Signs Vital Signs: 09/12/22 07:07 09/12/22 07:07 Temperature 97.2 F L Temperature Source Temporal Pulse Rate 68 Respiratory Rate 16 Respiratory Pattern Normal Blood Pressure 136/82 H Blood Pressure Mean 100 Blood Pressure Source Monitor Blood Pressure Position Semi-Fowlers Blood Pressure Location Right Arm Pulse Ox 99 Oxygen Delivery Method Room Air Weight Weight: 244 lb 11.41 oz Body Mass Index (BMI) 35.1 Physical Exam Const alert and oriented x3 HEENT normocephalic Eyes PERRL Resp normal respiratory effort and normal air movement Cardio regular rate and regular rhythm GI soft to palpation, non-tender and non-distended Extremity normal to inspection Assessment & Plan Assessment/Plan (1) Encounter for screening for malignant neoplasm of colon: PLAN: I explained endoscopy in detail to the patient. I explained the risks including but not limited to stroke or heart attack with anesthesia, perforation of the GI tract, bleeding, infection. I explained that any of these could necessitate further emergency surgery. The patient understands and all questions were answered sufficiently. The patient wishes to proceed with procedure. Navid Mccord MD Pager: [facility] [address] [place] [address] [address] [place] [address] Office: Surgery Risks - Colonoscopy Risks Include but are not Limited To: Risks include but are not limited to: Bleeding, perforation requiring further surgery, inability to complete colonoscopy requiring barium enema.
--- NOTE | 2022-09-12 08:31 | OP.COLON_ITS ---
Patient Name: Ministerio Clark Procedure Date: 09/12/2022 8:01 AM Date of : 1970 Age: 52 Procedure: Colonoscopy Indications: Screening for colorectal malignant neoplasm Providers: Navid Mccord MD Referring MD: Navid Mccord MD Medicines: Propofol per Anesthesia Patient Profile: Last Colonoscopy: none. The patient's first colonoscopy is today. Complications: No immediate complications. Procedure: Pre-Anesthesia Assessment: - Prior to the procedure, a History and Physical was performed, and patient medications and allergies were reviewed. The patient's tolerance of previous anesthesia was also reviewed. The risks and benefits of the procedure and the sedation options and risks were discussed with the patient. All questions were answered, and informed consent was obtained. Prior Anticoagulants: The patient has taken no previous anticoagulant or antiplatelet agents. After reviewing the risks and benefits, the patient was deemed in satisfactory condition to undergo the procedure. After I obtained informed consent, the scope was passed under direct vision. Throughout the procedure, the patient's blood pressure, pulse, and oxygen saturations were monitored continuously. The pediatric colonoscope was introduced through the anus and advanced to the cecum, identified by appendiceal orifice and ileocecal valve. The colonoscopy was performed without difficulty. The patient tolerated the procedure well. The quality of the bowel preparation was adequate. Scope In: 8:14:26 AM Scope Withdrawal Time 0 hours 2 minutes 32 seconds Scope Out: 8:27:21 AM Total Procedure Duration Time 0 hours 12 minutes 55 seconds Findings: The entire examined colon appeared normal on direct and retroflexion views. Impression: - The entire examined colon is normal on direct and retroflexion views. - No specimens collected. Recommendation: - Discharge patient to home. - Resume previous diet. - Continue present medications. - Repeat colonoscopy in 10 years for screening purposes. Procedure Code(s): --- Professional --- 91573, Colonoscopy, flexible; diagnostic, including collection of specimen(s) by brushing or washing, when performed (separate procedure) Diagnosis Code(s): --- Professional --- Z12.11, Encounter for screening for malignant neoplasm of colon CPT copyright 2017 [employer]. All rights reserved. The codes documented in this report are preliminary and upon rn diabetes review may be revised to meet current compliance requirements. Navid Mccord MD 09/12/2022 8:30:40 AM This report has been signed electronically. Number of Addenda: 0 Note Initiated On: 09/12/2022 8:01 AM
--- NOTE | 2022-09-12 08:32 | OP.CCLET_ITS ---
09/12/2022 Shi Edmond [facility] [address] [place] [address] Re : Colonoscopy procedure for Ministerio Clark Dear Dr. Edmond This procedure was performed on Monday, September 12, 2022. My impressions and recommendations are as follows: Impressions : - The entire examined colon is normal on direct and retroflexion views. - No specimens collected. Recommendations : - Discharge patient to home. - Resume previous diet. - Continue present medications. - Repeat colonoscopy in 10 years for screening purposes. My findings are described in the full procedure note, which is enclosed. If I can be of further assistance, please feel free to contact me at Doctor phone number(s): , Work: . Sincerely, Navid Mccord MD 09/12/2022 8:30:40 AM This report has been signed electronically.
[2022-09-12 10:23] LABS: Vitamin D,25 Hydroxy 29.1 ng/mL
[2022-09-12 10:25] LABS: Cholesterol 191 mg/dL (200); High Density Lipoprotein 49 mg/dL; PSA,Total - Annual Screen 1.67 ng/mL (0.00-4.00); Triglycerides 183 mg/dL; Very Low Density Lipoprotein 37 mg/dL (5-40)
== END 2022-09-12 09:34 | disposition home or self-care (01) ==
LOC: EN 06:58 → AC 06:58
PROVIDERS: PCP Internal Medicine; Referring Provider Internal Medicine; Visit Provider Surgery
PROC: 0DJD8ZZ Inspection of Lower Intestinal Tract, Via Natural or Artificial Opening Endoscopic (ICD-10-PCS; CPT 45378; principal; 2022-09-12 07:55)
DX: Z12.11 Encounter for screening for malignant neoplasm of colon (principal); G40.909 Epilepsy, unspecified, not intractable, without status epilepticus; Z87.891 Personal history of nicotine dependence; Z79.899 Other long term (current) drug therapy; R73.9 Hyperglycemia, unspecified; Z13.220 Encounter for screening for lipoid disorders; Z12.5 Encounter for screening for malignant neoplasm of prostate; E55.9 Vitamin D deficiency, unspecified
CPT/HCPCS: 45378; 36415; 80061; 82306; 83036; 84153; J7120; G0103; J2405

== ENCOUNTER → 2023-04-06 | Outpatient (CLI) | payer OTHER, SELFPAY | END | disposition home or self-care (01) | LOC: LAB 15:23 | PROVIDERS: PCP Internal Medicine; Referring Provider Urology; Visit Provider Urology | DX: E29.1 Testicular hypofunction (principal) | CPT/HCPCS: 36415; 84153; 84403 ==

== ENCOUNTER → 2024-05-06 | Outpatient (CLI) | payer OTHER, SELFPAY ==
[2024-05-06 16:39] LABS: Hematocrit 44.6 % (40-54); Hemoglobin 14.2 g/dL (13.0-16.5)
[2024-05-06 17:01] LABS: PSA,Total- Diagnostic 1.31 ng/mL (0.0-4.0)
== END | disposition home or self-care (01) ==
LOC: LAB 15:25
PROVIDERS: PCP Internal Medicine; Referring Provider Urology; Visit Provider Urology
DX: R35.1 Nocturia (principal); E29.1 Testicular hypofunction
CPT/HCPCS: 36415; 84153; 84403; 85014; 85018

== ENCOUNTER → 2024-09-15 | Outpatient (CLI) | payer BC, SELFPAY ==
[2024-09-15 16:49] LABS: Absolute Lymphocyte Count 1.34 X10^3/uL (0.83-4.51); Absolute Neutrophil Count 6.3 X10^3/uL (2.0-7.7); Basophil# 0.04 X10^3/uL; Basophil% 0.5 % (0-1); Hematocrit 45.7 % (40-54); Lymphocyte # 1.34 X10^3/ul (0.83-4.51); Lymphocyte % 16.3 % (19-41); Mean Corp Hgb Conc 32.8 g/dL (32-36); Mean Corpuscular Hgb 29.1 pg (27.0-32.0); Mean Corpuscular Volume 88.6 fL (80-94); Mean Platelet Vol. 10.3 fl (6.2-12.0); Monocyte# 0.51 X10^3/uL; Monocyte% 6.2 % (0-10); NRBC Flagged by Analyzer 0 % (0-5); Neutrophil % 76.5 % (47-70); Platelet Count 250 K/mm3 (150-450); RBC Distribution Width CV 13.7 % (11.6-14.6); RBC Distribution Width SD 44.6 fl (35.1-43.9); Red Blood Count 5.16 M/mm3 (4.6-6.2); White Blood Count 8.2 K/mm3 (4.4-11.0)
[2024-09-15 17:54] LABS: Cholesterol 129 mg/dL (<=200); High Density Lipoprotein 16 mg/dL; Low Density Lipoprotein Calc. 95 mg/dL; PSA,Total - Annual Screen 1.53 ng/mL (0.02-4.00); Triglycerides 89 mg/dL; Very Low Density Lipoprotein 18 mg/dL (5-40); Vitamin B12 473 pg/mL (180-914); Vitamin D,25 Hydroxy 17.2 ng/mL (30-100); cholesterol:hdl ratio screen 8.11
[2024-09-15 18:01] LABS: Hemoglobin A1c 6.3 % (<=5.6)
[2024-09-15 18:22] LABS: ALB/GLOB Ratio 1.7 RATIO (0.9-2.4); AST(SGOT) 15 U/L (<=37); Alanine Aminotransfer ALT/SGPT 19 U/L (<=46); Albumin, Serum 4.4 g/dL (3.5-5.0); Alkaline Phosphatase 60 U/L (40-129); Anion Gap 13 (5-15); BUN 16 mg/dL (4-19); BUN/Creat Ratio 16.8 RATIO (10-20); Carbon Dioxide 22.7 mmol/L (21.0-32.0); Chloride 96 mmol/L (98-108); Creatinine, Serum 0.92 mg/dL (0.70-1.20); EST Glomerular Filtration Rate 98 (>60); Globulin 2.6 g/dL (2.2-4.2); Glucose 110 mg/dL (70-99); Sodium Level 132 mmol/L (133-145); Total Bilirubin < 0.15 mg/dL (0.00-1.30)
== END | disposition home or self-care (01) ==
LOC: LAB 16:25
PROVIDERS: PCP Internal Medicine; Referring Provider Internal Medicine; Visit Provider Internal Medicine
DX: Z12.5 Encounter for screening for malignant neoplasm of prostate (principal); F33.2 Major depressive disorder, recurrent severe without psychotic features; G40.909 Epilepsy, unspecified, not intractable, without status epilepticus; F43.10 Post-traumatic stress disorder, unspecified; G62.9 Polyneuropathy, unspecified; E53.8 Deficiency of other specified B group vitamins; E55.9 Vitamin D deficiency, unspecified; Z13.220 Encounter for screening for lipoid disorders; R73.9 Hyperglycemia, unspecified
CPT/HCPCS: 36415; 80053; 80061; 82306; 82607; 83036; 84153; 84443; 85025; G0103

== ENCOUNTER → 2024-09-26 | Outpatient (CLI) | payer BC, SELFPAY ==
[2024-09-26 16:20] LABS: Cholesterol 180 mg/dL (<=200); High Density Lipoprotein 51 mg/dL; Low Density Lipoprotein Calc. 110 mg/dL; Triglycerides 96 mg/dL; Very Low Density Lipoprotein 19 mg/dL (5-40); cholesterol:hdl ratio screen 3.52
== END | disposition home or self-care (01) ==
LOC: LAB 15:15
PROVIDERS: PCP Internal Medicine; Referring Provider Internal Medicine; Visit Provider Internal Medicine
DX: Z13.220 Encounter for screening for lipoid disorders (principal); E78.6 Lipoprotein deficiency
CPT/HCPCS: 36415; 80061; 84402; 84403

== ENCOUNTER → 2024-10-31 | Outpatient (CLI) | payer OTHER, SELFPAY ==
--- NOTE | 2024-10-31 17:00 | RAD_ITS ---
PROCEDURE: LUMBAR SPINE 2 OR 3 VIEWS 10/31/2024 REASON FOR EXAM: FALL TECHNIQUE: LUMBAR SPINE 2 OR 3 VIEWS COMPARISON: Lumbar spine radiographs 11/24/2022 FINDINGS: Postoperative changes at L4-5 without evidence of hardware fracture or perihardware lucency. Vertebral body heights are maintained. Slight rightward curvature of the lumbar spine, unchanged. Mild to moderate multilevel endplate osteophyte formation, disc height loss, and facet arthrosis. Baastrup's disease. Degenerative changes of the sacroiliac joints. RAD/Lumbar Spine 2 or 3 Views IMPRESSION: No evidence of hardware complication. Reading Location: [facility]
--- OUTSIDE RECORDS SUMMARY | 2024-10-31 23:15 | XMS RPT_ITS | CCD ---
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 Name Role Phone Unavailable Primary Care Provider Unavailabl PRINCESS Casanova Attending Unavailable PRINCESS RAMACHANDRAN Attending Unavailable Shi Edmond Referring Unavailable Shi Edmond Attending Unavailable Mayito Shi Primary Care Unavailable Shi Edmond Attending Unavailable Mayito Shi Primary Care Unavailable MayitoShi stanley Referring Unavailable Mayito Shi Primary Care Unavailable Ramachandran II, Princess Referring Unavailable Ramachandran II, Princess Attending Unavailable Shi Edmond Attending Unavailable Mayito Shi Primary Care Unavailable Allergies Allergy Classification Reported Allergen(s) Allergy Type Date of Onset Reaction(s) Facility (5 sources) Aspirin; Translations: [ASPIRIN] Drug Allergy 02-04-2013 [facility] Work Phone: (5 sources) carBAMazepine; Translations: [CARBAMAZEPINE] Drug Allergy 05-19-2005 [facility] Work Phone: (5 sources) Ibuprofen; Translations: [IBUPROFEN] Drug Allergy 05-19-2005 [facility] Work Phone: (5 sources) Naproxen; Translations: [NAPROXEN] Drug Allergy 05-19-2005 [facility] Work Phone: (5 sources) Phenytoin; Translations: [PHENYTOIN SODIUM EXTENDED] Drug Allergy 05-19-2005 [facility] Work Phone: (5 sources) Valproate; Translations: [DIVALPROEX SODIUM] Drug Allergy 05-19-2005 [facility] Work Phone: (1 source) Aspirin Drug Allergy 09-15-2024 [facility] (1 source) Ibuprofen Drug Allergy 09-15-2024 [facility] (1 source) Naproxen Drug Allergy 09-15-2024 [facility] (1 source) Valproate Drug Allergy 09-15-2024 [facility] Medications Current Medications Medication Drug Class(es) Dates Sig (Normalized) Sig (Original) clonazePAM 1 mg oral tablet (4 sources) Benzodiazepine Start: 03-18-2023 clonazePAM (KlonoPIN) 1 mg tablet 03/18/2023 Active DULoxetine 20 mg delayed release oral capsule (4 sources) Serotonin and Norepinephrine Reuptake Inhibitor Start: 05-29-2022 take 1 capsule by mouth once daily DULoxetine (Cymbalta) [address] capsule Take 1 capsule (20 mg) by mouth once daily. 05/29/2022 Active [id number] 0.3 ml EPINEPHrine 1 mg/ml auto-injector (4 sources) alpha-Adrenergic Agonist, beta-Adrenergic Agonist, Catecholamine Start: 07-21-2014 EPINEPHrine 0.3 mg/0.3 mL injection syringe Inject 0.3 mL (0.3 mg) under the skin. 07/21/2014 Active gabapentin 600 mg oral tablet (4 sources) Anti-epileptic Agent Start: 03-02-2023 gabapentin (Neurontin) 600 mg tablet 03/02/2023 Active tamsulosin hydrochloride 0.4 mg oral capsule (4 sources) alpha-Adrenergic Alfredo Start: 06-06-2022 tamsulosin (Flomax) 0.4 mg 24 hr capsule 06/06/2022 Active 1 ml testosterone cypionate 200 mg/ml injection (5 sources) Androgen Start: 03-07-2024 End: 04-13-2024 testosterone cypionate (Depo-Testosteron e) 200 mg/mL injection Indications: Male hypogonadism Inject 1ml q weekly 4 mL 5 04/13/2024 Active Start: 04-15-2023 End: 04-13-2024 testosterone enanthate (Xyos ellen) 100 mg/0.5 mL auto-injector Indications: Male hypogonadism Inject 1 Syringe (100 mg) under the skin every 7 days. 4 each 5 04/15/2023 04/13/2024 Discontinued (Cost of medication) Problems Active Problems Problem Classification Problem Date Documented Da te Episodic/Chronic Anxiety disorders (1 source) Post-traumatic stress disorder, unspecified; Translations: [Post-traumatic stress disorder, unspecified] Onset: 09-20-2024 Chronic Epilepsy; convulsions (1 source) Epilepsy, unspecified, not intractable, without status epilepticus; Translations: [Epilepsy, unspecified, not intractable, without status epilepticus] Onset: 09-15-2024 Chronic Hyperplasia of prostate (10 sources) Benign prostatic hyperplasia; Translations: [Benign prostatic hyperplasia without lower urinary tract symptoms] Onset: 03-25-2023 03-25-2023 Chronic Mood disorders (1 source) Major depressive disorder, recurrent severe without psychotic features; Translations: [Major depressive disorder, recurrent severe without psychotic features] Onset: 09-15-2024 Chronic Other endocrine disorders (7 sources) Male hypogonadism; Translations: [Testicular hypofunction] Onset: 04-13-2024 03-25-2023 Chronic Other endocrine disorders (2 sources) Testicular hypofunction; Translations: [Testicular hypofunction] Onset: 04-13-2024 Chronic Other nervous system disorders (1 source) Polyneuropathy, unspecified; Translations: [Polyneuropathy, unspecified] Onset: 09-15-2024 Chronic Other screening for suspected conditions (not mental disorders or infectious disease) (1 source) Encounter for screening for lipoid disorders; Translations: [Encounter for screening for lipoid disorders] Onset: 09-29-2024 Episodic Past or Other Problems Problem Classification Problem Date Documented Da te Episodic/Chronic Genitourinary symptoms and ill-defined conditions (11 sources) Nocturia; Translations: [Nocturia] Onset: 03-25-2023 03-25-2023 Episodic Unclassified (2 sources) Onset: 05-05-2023 05-05-2023 Results Test Name Value Interpretation Reference Range Facility Testosterone, Total / Freeon 10-06-2024 TESTOSTER,FREE 20.51 ng/dL Normal 5.00-21.00 [facility] Comment on above: Order Comment: N Performed By: #### L 500.4100, L3100.5310 #### [facility] [address] [place], [address] TESTOSTER,TOTAL 814 ng/dL Normal 264-916 [facility] Comment on above: Order Comment: N Result Comment: Adul t male reference interval is based on a population of healthy nonobese males (BMI <30) between 19 and 39 years old. payam Ball.al. JCEM 2017,102;3491-1187. PMID: [id number]. Performed By: #### L 500.4100, L3100.5310 #### [facility] [address] [place], [address] TESTOSTERONE,%F 2.52 Normal 1.50-4.20 [facility] Comment on above: Order Comment: N Result Comment: Perf ormed at: - [facility] [address] [id number] [place] [employer] Operator: Brock Pinto PhD, Phone: [phone] Performed at: - [facility] [address] [id number] [place] [employer] Operator: Deshawn Adan MD, Phone: [phone] Performed By: #### L 500.4100, L3100.5310 #### [facility] [address] [place], [address] Lipid Profileon 09-26-2024 CHOL:HDL 3.52 Normal [facility] Comment on above: Performed By: #### L 500.4100, L3100.5310 #### [facility] [address] [place], [address] Cholesterol [Mass/Vol] 180 mg/dL Normal <=200 [facility] Comment on above: Result Comment: Chol esterol level, Desirable <200 mg/dL Borderline high cholesterol 200-239 mg/dL High cholesterol >=240 mg/dL Recommendations of the NCEP Adult Treatment Panel for the following risk-cutoff thresholds for the [place] population. Performed By: #### L 500.4100, L3100.5310 #### [facility] [address] [place], [address] Cholesterol in HDL [Mass/Vol] 51 mg/dL Normal [facility] Comment on above: Result Comment: Ilene onal Cholesterol Education Program (NCEP) guidelines: <40 mg/dL: Low HDL-cholesterol (major risk factor for CHD) >= 60 mg/dL: High HDL-cholesterol (negative risk factor for CHD) HDL-cholesterol is affected by a number of factors, e.g. smoking, exercise, hormones, sex and age. Performed By: #### L 500.4100, L3100.5310 #### [facility] [address] [place], [address] Cholesterol in LDL [Mass/Vol] 110 mg/dL Normal [facility] Comment on above: Result Comment: Bord sknzmd=227-220 mg/dL Higher Jueu=118 mg/dL or greater Performed By: #### L 500.4100, L3100.5310 #### [facility] [address] [place], [address] Cholesterol in VLDL [Mass/Vol] 19 mg/dL Normal 5-40 [facility] Comment on above: Performed By: #### L 500.4100, L3100.5310 #### [facility] [address] [place], [address] Triglyceride [Mass/Vol] 96 mg/dL Normal [facility] Comment on above: Result Comment: The drugs N-Acetylcysteine and Metamizole may falsely depress this assay. Normal range: <150 mg/dL Borderline High: 150-199 mg/dL High: 200-499 mg/dL Very High: >500 mg/dL Performed By: #### L 500.4100, L3100.5310 #### [facility] [address] [place], [address] CBC W/Diff, Automatedon 05-0 8-2024 Absolute Lymph 1.34 X10 3/uL Normal 0.83-4.51 [facility] Comment on above: Performed By: #### L 501.9985, L100.0100, L500.4050, L506.1001, L500.4100, L503.0106, L501.9520, L501.9910 #### [facility] [address] [place], [address] Absolute Neut 6.3 X10 3/uL Normal 2.0-7.7 [facility] Comment on above: Performed By: #### L 501.9985, L100.0100, L500.4050, L506.1001, L500.4100, L503.0106, L501.9520, L501.9910 #### [facility] [address] [place], [address] Basophils/100 WBC (Bld) 0.5 % Normal 0-1 [facility] Comment on above: Performed By: #### L 501.9985, L100.0100, L500.4050, L506.1001, L500.4100, L503.0106, L501.9520, L501.9910 #### [facility] [address] [place], [address] Eosinophils/100 WBC (Bld) 0.0 % Normal 0-5 [facility] Comment on above: Performed By: #### L 501.9985, L100.0100, L500.4050, L506.1001, L500.4100, L503.0106, L501.9520, L501.9910 #### [facility] [address] [place], [address] Erythrocyte distribution width (RBC) [Ratio] 13.7 % Normal 11.6-14.6 [facility] Comment on above: Performed By: #### L 501.9985, L100.0100, L500.4050, L506.1001, L500.4100, L503.0106, L501.9520, L501.9910 #### [facility] [address] [place], [address] Hematocrit (Bld) [Volume fraction] 45.7 % Normal 40-54 [facility] Comment on above: Performed By: #### L 501.9985, L100.0100, L500.4050, L506.1001, L500.4100, L503.0106, L501.9520, L501.9910 #### [facility] [address] [place], [address] Hemoglobin (Bld) [Mass/Vol] 15.0 g/dL Normal 13.0-16.5 [facility] Comment on above: Performed By: #### L 501.9985, L100.0100, L500.4050, L506.1001, L500.4100, L503.0106, L501.9520, L501.9910 #### [facility] [address] [place], [address] IG% 0.500 Normal 0.0-0.9 [facility] Comment on above: Result Comment: IG% - Immature Granulocytes (promyelocytes, myelocytes and metamyelocytes) > 1% indicates that a LEFT SHIFT is Present. Performed By: #### L 501.9985, L100.0100, L500.4050, L506.1001, L500.4100, L503.0106, L501.9520, L501.9910 #### [facility] [address] [place], [address] Lymphocytes/100 WBC (Bld) 16.3 % Low 19-41 [facility] Comment on above: Performed By: #### L 501.9985, L100.0100, L500.4050, L506.1001, L500.4100, L503.0106, L501.9520, L501.9910 #### [facility] [address] [place], [address] MCH (RBC) [Entitic mass] 29.1 pg Normal 27.0-32.0 [facility] Comment on above: Performed By: #### L 501.9985, L100.0100, L500.4050, L506.1001, L500.4100, L503.0106, L501.9520, L501.9910 #### [facility] [address] [place], [address] MCHC (RBC) [Mass/Vol] 32.8 g/dL Normal 32-36 [facility] Comment on above: Performed By: #### L 501.9985, L100.0100, L500.4050, L506.1001, L500.4100, L503.0106, L501.9520, L501.9910 #### [facility] [address] [place], [address] MCV (RBC) [Entitic vol] 88.6 fL Normal 80-94 [facility] Comment on above: Performed By: #### L 501.9985, L100.0100, L500.4050, L506.1001, L500.4100, L503.0106, L501.9520, L501.9910 #### [facility] [address] [place], [address] Monocytes/100 WBC (Bld) 6.2 % Normal 0-10 [facility] Comment on above: Performed By: #### L 501.9985, L100.0100, L500.4050, L506.1001, L500.4100, L503.0106, L501.9520, L501.9910 #### [facility] [address] [place], [address] Neutrophils/100 WBC (Bld) 76.5 % High 47-70 [facility] Comment on above: Performed By: #### L 501.9985, L100.0100, L500.4050, L506.1001, L500.4100, L503.0106, L501.9520, L501.9910 #### [facility] [address] [place], [address] Nucleated RBC (Bld) [#/Vol] 0 10*3/uL Normal 0-5 [facility] Comment on above: Performed By: #### L 501.9985, L100.0100, L500.4050, L506.1001, L500.4100, L503.0106, L501.9520, L501.9910 #### [facility] [address] [place], [address] Platelet mean volume (Bld) [Entitic vol] 10.3 fL Normal 6.2-12.0 [facility] Comment on above: Performed By: #### L 501.9985, L100.0100, L500.4050, L506.1001, L500.4100, L503.0106, L501.9520, L501.9910 #### [facility] [address] [place], [address] Platelets (Bld) [#/Vol] 250 10*3/uL Normal 150-450 [facility] Comment on above: Performed By: #### L 501.9985, L100.0100, L500.4050, L506.1001, L500.4100, L503.0106, L501.9520, L501.9910 #### [facility] [address] [place], [address] RBC (Bld) [#/Vol] 5.16 10*6/uL Normal 4.6-6.2 [facility] Comment on above: Performed By: #### L 501.9985, L100.0100, L500.4050, L506.1001, L500.4100, L503.0106, L501.9520, L501.9910 #### [facility] [address] [place], [address] RDW SD 44.6 fl High 35.1-43.9 [facility] Comment on above: Performed By: #### L 501.9985, L100.0100, L500.4050, L506.1001, L500.4100, L503.0106, L501.9520, L501.9910 #### [facility] [address] [place], [address] WBC (Bld) [#/Vol] 8.2 10*3/uL Normal 4.4-11.0 [facility] Comment on above: Performed By: #### L 501.9985, L100.0100, L500.4050, L506.1001, L500.4100, L503.0106, L501.9520, L501.9910 #### [facility] [address] [place], [address] Comprehensive Metabolic Prof [facility] 09-15-2024 Albumin [Mass/Vol] 4.4 g/dL Normal 3.5-5.0 [facility] Comment on above: Performed By: #### L 509.3000, L100.0600, L501.9940 #### [facility] [address] [place], [address] Albumin/Globulin [Mass ratio] 1.7 {ratio} Normal 0.9-2.4 [facility] Comment on above: Performed By: #### L 509.3000, L100.0600, L501.9940 #### [facility] [address] [place], [address] ALK PHOS 60 U/L Normal 40-129 [facility] Comment on above: Performed By: #### L 509.3000, L100.0600, L501.9940 #### [facility] [address] [place], [address] ALT [Catalytic activity/Vol] 19 U/L Normal <=46 [facility] Comment on above: Performed By: #### L 509.3000, L100.0600, L501.9940 #### [facility] [address] [place], [address] AST [Catalytic activity/Vol] 15 U/L Normal <=37 [facility] Comment on above: Performed By: #### L 509.3000, L100.0600, L501.9940 #### [facility] [address] [place], [address] BUN/CRE 16.8 RATIO Normal 10-20 [facility] Comment on above: Performed By: #### L 509.3000, L100.0600, L501.9940 #### [facility] [address] [place], [address] Calcium [Mass/Vol] 8.0 mg/dL Normal 7.6-11.0 [facility] Comment on above: Performed By: #### L 509.3000, L100.0600, L501.9940 #### [facility] [address] [place], [address] Chloride [Moles/Vol] 96 mmol/L Low 98-108 [facility] Comment on above: Performed By: #### L 509.3000, L100.0600, L501.9940 #### [facility] [address] [place], [address] CO2 [Moles/Vol] 22.7 mmol/L Normal 21.0-32.0 [facility] Comment on above: Performed By: #### L 509.3000, L100.0600, L501.9940 #### [facility] [address] [place], [address] Creatinine [Mass/Vol] 0.92 mg/dL Normal 0.70-1.20 [facility] Comment on above: Performed By: #### L 509.3000, L100.0600, L501.9940 #### [facility] [address] [place], [address] GAP 13 Normal 5-15 [facility] Comment on above: Performed By: #### L 509.3000, L100.0600, L501.9940 #### [facility] [address] [place], [address] GFR/1.73 sq M.predicted among non-blacks MDRD (S/P/Bld) [Vol rate/Area] 98 mL/min/{1.73_m2} Normal >60 [facility] Comment on above: Result Comment: mL/m in/1.73m2 CKD-EPI Creatinine Equation (2020) Performed By: #### L 509.3000, L100.0600, L501.9940 #### [facility] [address] [place], [address] Globulin (S) [Mass/Vol] 2.6 g/dL Normal 2.2-4.2 [facility] Comment on above: Performed By: #### L 509.3000, L100.0600, L501.9940 #### [facility] [address] [place], [address] Glucose [Mass/Vol] 110 mg/dL High 70-99 [facility] Comment on above: Performed By: #### L 509.3000, L100.0600, L501.9940 #### [facility] [address] [place], [address] Potassium [Moles/Vol] 4.0 mmol/L Normal 3.3-5.1 [facility] Comment on above: Performed By: #### L 509.3000, L100.0600, L501.9940 #### [facility] [address] [place], [address] Sodium [Moles/Vol] 132 mmol/L Low 133-145 [facility] Comment on above: Performed By: #### L 509.3000, L100.0600, L501.9940 #### [facility] [address] [place], [address] T BILI < 0.15 Normal 0.00-1.30 [facility] Comment on above: Performed By: #### L 509.3000, L100.0600, L501.9940 #### [facility] [address] [place], [address] T PROT 7.0 g/dL Normal 5.9-8.4 [facility] Comment on above: Performed By: #### L 509.3000, L100.0600, L501.9940 #### [facility] [address] [place], [address] Urea nitrogen [Mass/Vol] 16 mg/dL Normal 4-19 [facility] Comment on above: Performed By: #### L 509.3000, L100.0600, L501.9940 #### [facility] [address] [place], [address] Hemoglobin A1con 09-15-2024 HbA1c (Bld) [Mass fraction] 6.3 % High <=5.6 [facility] Comment on above: Result Comment: Norm al < 5.7 % Prediabetic 5.7 - 6.4 % Diabetic >or= 6.5 % Please note range changes. Performed By: #### L 501.9985, L100.0100, L500.4050, L506.1001, L500.4100, L503.0106, L501.9520, L501.9910 #### [facility] [address] [place], [address] Lipid Profileon 09-15-2024 CHOL:HDL 8.11 Normal [facility] Comment on above: Performed By: #### L 501.9985, L100.0100, L500.4050, L506.1001, L500.4100, L503.0106, L501.9520, L501.9910 #### [facility] [address] [place], [address] Cholesterol [Mass/Vol] 129 mg/dL Normal <=200 [facility] Comment on above: Result Comment: Chol esterol level, Desirable <200 mg/dL Borderline high cholesterol 200-239 mg/dL High cholesterol >=240 mg/dL Recommendations of the NCEP Adult Treatment Panel for the following risk-cutoff thresholds for the [place] population. Performed By: #### L 501.9985, L100.0100, L500.4050, L506.1001, L500.4100, L503.0106, L501.9520, L501.9910 #### [facility] [address] [place], [address] Cholesterol in HDL [Mass/Vol] 16 mg/dL Low [facility] Comment on above: Result Comment: Ilene onal Cholesterol Education Program (NCEP) guidelines: <40 mg/dL: Low HDL-cholesterol (major risk factor for CHD) >= 60 mg/dL: High HDL-cholesterol (negative risk factor for CHD) HDL-cholesterol is affected by a number of factors, e.g. smoking, exercise, hormones, sex and age. Performed By: #### L 501.9985, L100.0100, L500.4050, L506.1001, L500.4100, L503.0106, L501.9520, L501.9910 #### [facility] [address] [place], [address] Cholesterol in LDL [Mass/Vol] 95 mg/dL Normal [facility] Comment on above: Result Comment: Bord ivbxlp=281-406 mg/dL Higher Jwny=547 mg/dL or greater Performed By: #### L 501.9985, L100.0100, L500.4050, L506.1001, L500.4100, L503.0106, L501.9520, L501.9910 #### [facility] [address] [place], [address] Cholesterol in VLDL [Mass/Vol] 18 mg/dL Normal 5-40 [facility] Comment on above: Performed By: #### L 501.9985, L100.0100, L500.4050, L506.1001, L500.4100, L503.0106, L501.9520, L501.9910 #### [facility] [address] [place], [place], [address] Triglyceride [Mass/Vol] 89 mg/dL Normal [facility] Comment on above: Result Comment: The drugs N-Acetylcysteine and Metamizole may falsely depress this assay. Normal range: <150 mg/dL Borderline High: 150-199 mg/dL High: 200-499 mg/dL Very High: >500 mg/dL Performed By: #### L 501.9985, L100.0100, L500.4050, L506.1001, L500.4100, L503.0106, L501.9520, L501.9910 #### [facility] [address] [place], [place], [address] MR/[facility] 09-15-2024 MR/BMS.B [facility] [address] [place] [address] OFFICE VISIT Date of Service: 09/15/24 MR#: [id number] Acct: [id number] Name: LAM CLARK Rep #: [id number] : 1970 Provider: Dr. 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 Accompanied by: Self Is patient in pain?: No Allergies aspirin Allergy (Severe, Verified 09/15/24 15:25) Anaphylaxis ibuprofen (From Motrin) Allergy (Verified 09/15/24 15:25) Angioedema naproxen (From Naprosyn) Allergy (Verified 09/15/24 15:25) Angioedema divalproex sodium (From Depakote) Adverse Reaction (Verified 09/15/24 15:25) Other Medications ???Medication ???Instructions ???Recorded ???Confirmed ???Type clonazepam 1 mg tablet 1 mg PO TID EPILEPSY 10/17/20/01/02 History gabapentin 300 mg capsule 300 mg PO TID NERVE PAIN 10/17/20 09/15/24 History oxcarbazepine 600 mg tablet 600 mg PO BID EPILEPSY 10/17/20 History enriqueta hives PO 04/08/23 09/15/24 History testosterone cypionate 200 mg/mL 200 mg IM QWEEK 09/15/24 09/15/24 History intramuscular oil PFSH Medical History Arthrosis of right acromioclavicular joint Wears glasses Anxiety Alcohol use Arthritis Back pain Injury of back Injury of head and neck Loss of consciousness Seizures Chewing tobacco nicotine dependence Shortness of breath on exertion History of pain when walking History of edema Hx of fracture of foot History of open arm wound PTSD (post-traumatic stress disorder) Panic disorder Major depressive disorder, recurrent severe without psychotic features Epilepsy Neuropathy Surgical History Previous back surgery Hx of ankle fusion Family History Father Lung cancer Sister Pancreatic cancer Aunt Mental disorder Social History Smoking Status: Former smoker Tobacco: How many years used: 6 Smokeless tobacco user: chewing tobacco alcohol intake: never substance use type: does not use what type of physical activity do you participate in: walking frequency: 1-2 times per week HPI HPI Chief Complaint: Annual/Physical Details: LAM CLARK, is a 54 M who presents to the office today for annual follow-up. 54-year-old gentleman who has a history of seizure. He is on clonazepam, gabapentin and oxcarbazepine. He is also on testosterone that we supply. He has history of hypergonadism. These have been relatively stable issues. He overall seems to be doing pretty well. He has been doing reasonably well from a depression standpoint. See my previous notes in that regards. He remains single at this point. He has been dating some however has found in some short-term relationships, concerns and has not really had a sustained long-term relationship at this point. He is comfortable with the situation overall compared to where he was a couple years ago and he states. Review of systems per chart. He denies chest pain, chest tightness, shortness of breath wheeze cough or congestion. No fever or chills. No nausea or vomiting. Appetite has been good. Has had ongoing difficulties with sleep. Did suggest he might try magnesium glycinate and see if that helps out. He does not get up to urinate through the night but does drink good volumes of water. He does cut off caffeine towards suppertime. Physical exam. Vital signs on chart. PERRLA. Sclera are clear. TMs are unremarkable with normal light reflexes. Canals are unremarkable. Posterior pharynx is unremarkable. Good dentition. Does have chronic oral mucosal changes, left inner cheek, from chewing tobacco. No obvious lesions per se. No cervical or supraclavicular lymph nodes enlarged or tender. No clear thyromegaly. No thyroid nodules readily palpable. Lungs are without wheeze, rhonchi, rales. No E/A changes are heard. Heart is regular. Not tachycardic. No clear murmur, rub, or gallop is identified. The abdomen is soft. Bowel sounds are present. Nontender nondistended abdomen. No clear palpable masses in the abdomen. No significant leg edema. Cranial nerve examination 2 through 12 are grossly unremarkable nonlateralizing. No obvious rashes. No obvious significant skin l (more content not included)... Normal [facility] PSA,Total - Annual Screenon 09-15-2024 PSA,TOT SCREEN 1.53 ng/mL Normal 0.02-4.00 [facility] Comment on above: Result Comment: This test was performed using the [employer] tPSA method. Measured values of a patient??sample can vary depending on the testing procedure used. PSA values determined on patient samples by different testing procedures cannot be used interchangeably. If there is a change in PSA assays while monitoring therapy, sequential testing should be performed to confirm baseline values. Performed By: #### L 509.3000, L100.0600, L501.9940 #### [facility] [address] [place], [address] Thyroid Stim Hormone (TSH)on 09-15-2024 TSH 3.240 uIU/mL Normal 0.300-4.200 [facility] Comment on above: Performed By: #### L 501.9985, L100.0100, L500.4050, L506.1001, L500.4100, L503.0106, L501.9520, L501.9910 #### [facility] [address] [place], [address] Vitamin B12on 09-15-2024 Cobalamin (Vitamin B12) [Mass/Vol] 473 pg/mL Normal 180-914 [facility] Comment on above: Performed By: #### L 509.3000, L100.0600, L501.9940 #### [facility] [address] [place], [address] Vitamin D,25 Hydroxyon 09-15 Vitamin D 25-OH 17.2 ng/mL Low 30-100 [facility] Comment on above: Result Comment: Kamini min D Status Deficiency: <20 ng/mL (50nmol/L) Insufficiency: 20-30 ng/mL (50-75 nmol/L) Sufficiency: 30-100 ng/mL (75-250 nmol/L) Toxicity: >100 ng/mL (>250 nmol/L) Performed By: #### L 509.3000, L100.0600, L501.9940 #### [facility] [address] [place], [address] HH, Hemoglobin AND Hematocri ton 05-06-2024 Hematocrit (Bld) [Volume fraction] 44.6 % Normal 40-54 [facility] Comment on above: Performed By: #### L 509.3000, L100.0600, L501.9940 #### [facility] [address] [place], [place], [address] Hemoglobin (Bld) [Mass/Vol] 14.2 g/dL Normal 13.0-16.5 [facility] Comment on above: Performed By: #### L 509.3000, L100.0600, L501.9940 #### [facility] [address] [place], [address] PSA,Total- Diagnosticon 04-11 PSA, DIAGNOSTIC 1.31 ng/mL Normal 0.0-4.0 [facility] Comment on above: Result Comment: This test was performed using the TPSA assay method for the [employer] system. Values obtained with different assay methods cannot be used interchangably. When changing PSA assays in the course of monitoring a patient, additional sequential testing should be carried out to confirm baseline values. Performed By: #### L 509.3000, L100.0600, L501.9940 #### [facility] [address] [place], [address] Testosterone, Serum Totalon 05-06-2024 Testosterone [Mass/Vol] 617.45 ng/dL Normal [facility] Comment on above: Result Comment: CENT RAL 90% REFERENCE RANGES MALE AGE <50 197.44 - 669.58 ng/dL MALE AGE > or = 50 187.72 - 684.19 ng/dL FEMALE AGE <50 8.38 - 35.01 ng/dL FEMALE AGE > or = 50 <7.00 - 35.92 ng/dL Effective as of 12/04/20 Performed By: #### L 509.3000, L100.0600, L501.9940 #### [facility] [address] [place], [place], [address] OBSOLETEon 08-24-2020 OBSOLETE Refill (FAMPWS) LAM CLARK ([id number]) 1970 M Date Time Provider Department 08/24/20 DEBI ZIMMER During your visit today, we recorded the following information about you: Blanca Negretecandice 08/24/2020 11:53 AM Signed Patient phones requesting refills as follows: Pending Prescriptions Disp Refills FLUOXETINE 40 MG CAPSULE 30 capsule 5 Sig: Take 1 capsule by mouth once daily. JUANITA: No JOHAN - 03/29/20 with PCP Labs - 04/25/20 NOV - none Please review and advise. 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 Allergies As of Date: 08/24/2020 Noted Allergy Reaction ASA (ASPIRIN) 02/04/2013 7 - Swelling DEPAKOTE (DIVALPROEX SODIUM) 05/19/2005 DILANTIN (PHENYTOIN SODIUM EXTEND*05/19/2005 IBUPROFEN 05/19/2005 NAPROXEN 05/19/2005 TEGRETOL (CARBAMAZEPINE) 05/19/2005 Date Reviewed: 04/25/2020 Reviewed by: Alisha Rincon) Shukri - Fully Assessed Reason for Visit: Refill Request [94] Visit Diagnoses:Situational stress [F43.9] Anxiety with depression [F41.8] Order(s):FLUoxetine HCl (PROZAC) 40 mg capsuleTake 1 capsule by mouth once daily.Disp: 30 capsuleRfl: 5 Prescriptions as of 08/24/2020 Sig: FLUOXETINE 40 MG CAPSULE Take 1 capsule by mouth once * MIRTAZAPINE 30 MG TABLET Take 1 tablet by mouth daily * BUSPIRONE 5 MG TABLET Take 1 tablet by mouth three * GABAPENTIN 100 MG CAPSULE Take 2 capsules by mouth thre* EPINEPHRINE 0.3 MG/0.3 ML INJ* Inject 0.3 mL subcutaneously * * MYSOLINE 250 MG TABLET Take one(1) tablet three time* * TRILEPTAL 600 MG TABLET Take one(1) tablet two(2) cristina* Problem List As Of Date 08/24/2020 Noted Resolved Vitamin D deficiency [E55.9] 05/23/2013 07/21/2014 Fracture of fifth metatarsal bone [S92.353A] 07/11/2013 07/21/2014 Seizure disorder (HCC) [G40.909] 07/21/2014 Hyponatremia [E87.1] 06/12/2016 10/21/2017 Contact with and (suspected) exposure to lead [*07/14/2016 Rotator cuff syndrome [M75.100] 07/14/2016 Obesity, Class I, BMI 30-34.9 [E66.9] 10/21/2017 Idiopathic peripheral neuropathy [G60.9] 04/09/2018 Skin ulcer, limited to breakdown of skin (HCC) *01/11/2019 Hyperlipidemia with target LDL less than 130 [E*01/11/2019 Foot pain, right [M79.671] 01/11/2019 Situational mixed anxiety and depressive disord*01/03/2020 Prescriptions ordered this encounter Disp Refills Start End FLUOXETINE 40 MG CAPSULE 30 c* 5 08/24/2020 Route: ORAL Sig: Take 1 capsule by mouth once daily. Medications Discontinued During This Encounter Prescriptions - FLUoxetine HCl (PROZAC) 40 mg capsule (Discontinued) Take 1 capsule by mouth once daily. Encounter Status:Closed by BARRY HILLS III, MD on 08/24/20 [facility] Vital Signs Date Time Vital Sign Value Performing Clinician Geraldi tucker 04-13-2024 14:00-0500 Body weight 116.57 kg Princess Ramachandran MD Work Phone: [facility] 04-13-2024 14:00-0500 Diastolic blood pressure 84 mm[Hg] Princess Ramachandran MD Work Phone: [facility] 04-13-2024 14:00-0500 Respiratory rate 16 /min Princess Ramachandran MD Work Phone: [facility] 04-13-2024 14:00-0500 Systolic blood pressure 138 mm[Hg] Princess Ramachandran MD Work Phone: [facility] 03-25-2023 15:51-0500 Body weight 104.33 kg Princess Ramachandran MD Work Phone: [facility] 03-25-2023 15:51-0500 Diastolic blood pressure 62 mm[Hg] Princess Ramachandran MD Work Phone: [facility] 03-25-2023 15:51-0500 Systolic blood pressure 117 mm[Hg] Princess Ramachandran MD Work Phone: [facility] Encounters Encounter Date Encounter Type Care Provider Facility Start: 09-26-2024 End: 09-26-[address] [facility] Facility:[facility] Start: 09-15-2024 End: 09-15-[address] [facility] Facility:[facility] Start: 09-15-2024 End: 09-15-[address] [facility] Facility:[facility] Start: 05-26-2024 End: 05-26-2024 Office outpatient visit 15 minutes Princess Ramachandran MD Work Phone: [facility] Comment on above: BPH without obstruct ion/lower urinary tract symptoms; Nocturia; Male hypogonadism Start: 05-26-2024 End: 05-26-2024 ambulatory [facility] Ambulatory Start: 05-06-2024 End: 05-06-[address] [facility] Facility:[facility] Start: 04-13-2024 End: 04-13-2024 Office outpatient visit 25 minutes Princess Ramachandran MD Work Phone: [facility] Comment on above: Male hypogonadism; Nocturia; BPH without obstruction/lower urinary tract symptoms Start: 04-13-2024 End: 04-13-2024 ambulatory [facility] Ambulatory Start: 04-15-2023 End: 04-15-2023 Office outpatient visit 25 minutes Princess Ramachandran MD Work Phone: [facility] Comment on above: Nocturia; Male hypogonadism; BPH without obstruction/lower urinary tract symptoms Start: 03-25-2023 End: 03-25-2023 Office outpatient new 45 minutes Princess Ramachandran MD Work Phone: [facility] Comment on above: BPH without obstruct ion/lower urinary tract symptoms (Primary Dx); Nocturia; Male hypogonadism Plan of Treatment Date Care Activity Detail Author Start: 11-08-2024 End: 05-26-2025 Hemoglobin and Hematocrit panel - Blood Hemoglobin and Hematocrit, Blood Lab Routine Male hypogonadism Expected: 11/08/2024 (Approximate), Expires: 05/26/2025 [facility] Work Phone: Comment on above: Expected: 11/08/2024 (Approximate), Expires: 05/26/2025 Start: 11-08-2024 End: 05-26-2025 Prostate specific Ag [Mass/volume] in Serum or Plasma Prostate Specific Antigen Lab Routine Nocturia Expected: 11/08/2024 (Approximate), Expires: 05/26/2025 [facility] Service Area Work Phone: Comment on above: Expected: 11/08/2024 (Approximate), Expires: 05/26/2025 Start: 11-08-2024 End: 05-26-2025 Testosterone [Mass/volume] in Serum or Plasma Testosterone Lab Routine Male hypogonadism Expected: 11/08/2024 (Approximate), Expires: 05/26/2025 [facility] Work Phone: Comment on above: Expected: 11/08/2024 (Approximate), Expires: 05/26/2025 Start: 05-26-2024 End: 05-26-2024 Telemedicine consultation with patient 05/26/2024 11:00 AM EST Telemedicine [facility] [address] [place] [address] Princess Ramachandran MD [address] [place] [address] [facility] Start: 01-10-2024 COVID-19 Vaccine ( season) COVID-19 Vaccine ( season) [facility] Start: 01-10-2024 Influenza vaccination Influenza Vacc ine (#1) [facility] Start: 07-15-2023 End: 04-15-2024 Testosterone [Mass/volume] in Serum or Plasma Testosterone Lab Routine Male hypogonadism Expected: 07/15/2023 (Approximate), Expires: 04/15/2024 [facility] Service Area Work Phone: Comment on above: Expected: 07/15/2023 (Approximate), Expires: 04/15/2024 Start: 04-15-2023 End: 04-15-2023 Telemedicine consultation with patient 04/15/2023 9:00 AM EST Telemedicine [facility] [address] [facility] [address] [place] [id number] Princess Ramachandran MD [address] [place] [address] [facility] Start: 03-25-2023 End: 03-25-2024 Prostate specific Ag [Mass/volume] in Serum or Plasma PSA Lab Routine Male hypogonadism Expected: 03/25/2023 (Approximate), Expires: 03/25/2024 [facility] Work Phone: Comment on above: Expected: 03/25/2023 (Approximate), Expires: 03/25/2024 Start: 03-25-2023 End: 03-25-2024 Testosterone [Mass/volume] in Serum or Plasma Testosterone Lab Routine Male hypogonadism Expected: 03/25/2023 (Approximate), Expires: 03/25/2024 [facility] Service Area Work Phone: Comment on above: Expected: 03/25/2023 (Approximate), Expires: 03/25/2024 Start: 02-04-2023 DTaP/Tdap/Td Vaccine s (2 - Td or Tdap) DTaP/Tdap/Td Vaccines (2 - Td or Tdap) [facility] Start: 01-09-2023 Influenza vaccination Influenza Vacc ine (#1) [facility] Start: 2020 Pneumococcal vaccination Pneumococcal Vaccine (1 of 1 - PCV) [facility] Start: 2020 Zoster Vaccines (1 o f 2) Zoster Vaccines (1 of 2) [facility] Start: 1989 Hepatitis B Vaccines (1 of 3 - 19+ 3-dose series) Hepatitis B Vaccines (1 of 3 - 19+ 3-dose series) [facility] Start: 1988 [facility]: [facility] MMR Vaccines (1 of 1 - Standard series) MMR Vaccines (1 of 1 - Standard series) [facility] Start: 1970 COVID-19 Vaccine (#1) COVID-19 Vacci ne (#1) [facility] Start: 1970 Hepatitis B Vaccines (1 of 3 - 3-dose series) Hepatitis B Vaccines (1 of 3 - 3-dose series) [facility] Start: 1970 HIV screening HIV Screening [facility] Start: 1970 Lipid panel Lipid Panel [facility] Start: 1970 Screening for malign ant neoplasm of colon [facility] Start: 1970 Yearly Adult Physical Yearly Adult P hysical [facility] Payers Date Payer Category Payer Unknown [id number] 2024 Self-pay 2022 Managed Care (Private) [id number] 2022 Private Health Insurance [facility] [employer] [id number] 2022-Present [address] [place] [address] [id number] 2022 Private Health Insurance [id number] 1970 Unknown [id number] 1970 Unknown [id number] Unknown [id number] Unknown [id number] Unknown [id number] Unknown [id number] Social History Date Type Detail Facility Start: 03-25-2023 Tobacco smoking stat us NHIS Never smoked tobacco [facility] Start: 03-25-2023 Tobacco use and exposure User of smokeless tobacco [facility] Work Phone: History of tobacco use Chews Tobacco [facility] Work Phone: Start: 03-25-2023 End: 04-13-2024 History of Social function [facility] Work Phone: Start: 03-25-2023 End: 04-13-2024 Tobacco use panel [facility] Work Phone: Start: 1970 Sex Assigned At Not on file [facility] Work Phone: Start: 03-15-2023 End: 04-13-2024 Exposure to SARS-CoV-2 (event) Not sure [facility] Start: 04-15-2023 End: 04-13-2024 Alcohol intake Lifetime non-drinker (finding) [facility] Work Phone: Medical Equipment Procedure Code Equipment Code Equipment Origin al Text Equipment Identifier Dates USE TO DRAW UP TESTOSTERONE [id number] Start: 04-13-2024 USE TO INJECT TESTOSTERONE [id number] Start: 04-13-2024 USE TO DRAW UP TESTOSTERONE [id number] Start: 03-07-2024 End: 04-13-2024 USE TO INJECT TESTOSTERONE [id number] Start: 03-07-2024 End: 04-13-2024 Clinical Notes 07-07-2020 to 05-26-2024 Princess Ramachandran MD - 05/26/2024 11:00 AM Slim Ramachandran MD - 04/13/2024 2:00 PM Slim Ramachandran MD - 04/15/2023 9:00 AM Slim Ramachandran MD - 03/25/2023 3:45 PM EST Note Date & Type Note Facility 05-26-2024 History of Present illness Narrative Subjective Patient ID: Lam Clark is a 54 y.o. male. Virtual or Telephone Consent An interactive audio and video telecommunication system which permits real time communications between the patient (at the originating site) and provider (at the distant site) was utilized to provide this telehealth service. Verbal consent was requested and obtained from Lam Clark on this date, 05/26/24 for a telehealth visit. HPI Patient is here for lab results. Hx of male hyogonadism. He is doing IM injections 1ml weekly. He was first given Xyosted but insurance wont approve this. Recent Labs were done on 06/04. T level was 617, H/H WNL, and PSA was 1.31. Overall patient is pleased with TRT. Energy level improved. Libido is not an issue. Chronic BPH sx are mild and stable and not bothersome. Denies urgency and frequency. Denies dysuria. Denies hematuria. Nocturia x1. ED is not an issue Review of Systems Constitutional: Negative for chills and fever. HENT: Negative. Eyes: Negative. Respiratory: Negative for cough and shortness of breath. Cardiovascular: Negative for chest pain and leg swelling. Gastrointestinal: Negative for nausea. Endocrine: Negative. Genitourinary: Negative for difficulty urinating. Negative except for documented in HPI Allergic/Immunologic: Negative. Neurological: Alert & oriented X 3 Hematological: Denies blood thinners Psychiatric/Behavioral: Negative. Objective Physical Exam No PE done given the virtual nature of visit. Assessment/Plan Diagnoses and all orders for this visit: BPH without obstruction/lower urinary tract symptoms Nocturia Male hypogonadism pros/cons of Testosterone replacement reviewed. Replacement options discussed. Questions answered. Available levels reviewed. Continue Current Dose All available PSA values reviewed, Options discussed. Questions answered. Diet changes for prostate health discussed and educational information given. Pros/Cons of prostate health supplements discussed. Treatment options for LUTS reviewed-Not bothersome Discussed timed voiding. Discussed fluid and caffeine intake Treatment options for ED reviewed-Not an issue F/U 6 months with labs documented in this encounter [facility] Work Phone: 04-13-2024 History of Present illness Narrative Subjective Patient ID: Lam Clark is a 54 y.o. male. HPI Patient is here for yearly follow up. Hx of male hyogonadism. He is doing IM injections 1ml weekly. He was first given Xyosted but insurance wont approve this. No recent labs drawn, patient has the form but did not do. Overall patient is pleased with TRT. Energy level improved. Libido is not an issue. Chronic BPH sx are mild and stable. Denies urgency and frequency. Denies dysuria. Denies hematuria. Nocturia x1. Review of Systems Constitutional: Negative for chills and fever. HENT: Negative. Eyes: Negative. Respiratory: Negative for cough and shortness of breath. Cardiovascular: Negative for chest pain and leg swelling. Gastrointestinal: Negative for nausea. Endocrine: Negative. Genitourinary: Negative for difficulty urinating. Negative except for documented in HPI Allergic/Immunologic: Negative. Neurological: Alert & oriented X 3 Hematological: Denies blood thinners Psychiatric/Behavioral: Negative. Objective Physical Exam Vitals and nursing note reviewed. Pulmonary: Effort: Pulmonary effort is normal. Abdominal: Palpations: Abdomen is soft. Tenderness: There is no abdominal tenderness. Genitourinary: Comments: Kidneys non palpable bilaterally Bladder non palpable or tender Neurological: Mental Status: He is alert. Assessment/Plan Diagnoses and all orders for this visit: Male hypogonadism Nocturia BPH without obstruction/lower urinary tract symptoms All available PSA values reviewed, Options discussed. Questions answered. Diet changes for prostate health discussed and educational information given. Pros/Cons of prostate health supplements discussed. Treatment options for LUTS reviewed Discussed timed voiding. Discussed fluid and caffeine intake Treatment options for ED reviewed. Lifestyle change to help prevent UTIs discussed. Encouraged fluid intake. pros/cons of Testosterone replacement reviewed. Replacement options discussed. Questions answered. Available levels reviewed. T Rx refilled F/U virtual with labs documented in this encounter [facility] Work Phone: 04-15-2023 History of Present illness Narrative Subjective Patient ID: Lam Clark is a 53 y.o. male. HPI Patient is here for lab results. Recent T level was 214...Patient does have fatigue. Libido is OK. ED is not an issue. Patient has lost weight on purpose and feels better since. Chronic LUT'S sx are mild and stable. Denies urgency and frequency. Denies dysuria. Denies hematuria. Nocturia x1. No medication for LUT'S. Most recent PSA was 0.90 on 04/02 Review of Systems Constitutional: Negative for chills and fever. HENT: Negative. Eyes: Negative. Respiratory: Negative for cough and shortness of breath. Cardiovascular: Negative for chest pain and leg swelling. Gastrointestinal: Negative for nausea. Endocrine: Negative. Genitourinary: Negative for difficulty urinating. Negative except for documented in HPI Allergic/Immunologic: Negative. Neurological: Alert & oriented X 3 Hematological: Denies blood thinners Psychiatric/Behavioral: Negative. Objective Physical Exam No PE done given the virtual nature of visit. Assessment/Plan Diagnoses and all orders for this visit: Nocturia Male hypogonadism BPH without obstruction/lower urinary tract symptoms All available PSA values reviewed, Options discussed. Questions answered. Diet changes for prostate health discussed and educational information given. Pros/Cons of prostate health supplements discussed. Treatment options for LUTS reviewed Discussed timed voiding. Discussed fluid and caffeine intake Treatment options for ED reviewed. Lifestyle change to help prevent UTIs discussed. Encouraged fluid intake. pros/cons of Testosterone replacement reviewed. Replacement options discussed. Questions answered. Available levels reviewed. Xyosted 100mg Rx given F/U with T level 3 month documented in this encounter [facility] Work Phone: 03-25-2023 History of Present illness Narrative Subjective Patient ID: Lam Clark is a 53 y.o. male. HPI Patient is here to establish for low testosterone. Not on replacement. Patient does have fatigue. Libido is OK. ED is not an issue. Patient has lost weight on purpose and feels better since. Chronic LUT'S sx are mild and stable. Denies urgency and frequency. Denies dysuria. Denies hematuria. Nocturia x1. No medication for LUT'S. Review of Systems Constitutional: Negative for chills and fever. HENT: Negative. Eyes: Negative. Respiratory: Negative for cough and shortness of breath. Cardiovascular: Negative for chest pain and leg swelling. Gastrointestinal: Negative for nausea. Endocrine: Negative. Genitourinary: Negative for difficulty urinating. Negative except for documented in HPI Allergic/Immunologic: Negative. Neurological: Alert & oriented X 3 Hematological: Denies blood thinners Psychiatric/Behavioral: Negative. Objective Physical Exam Vitals and nursing note reviewed. Constitutional: General: He is not in acute distress. Appearance: Normal appearance. Pulmonary: Effort: Pulmonary effort is normal. Abdominal: Tenderness: There is no abdominal tenderness. Genitourinary: Comments: Kidneys non palpable bilaterally Bladder non palpable or tender Scrotum no mass, No hydrocele Epididymis- No spermatocele. Non Tender. Testicles: No mass. WNL Urethra: No discharge Penis within normal limits... No lesions. circumcised Prostate - symmetric, no nodules. BENIGN Seminal Vesicals: No mass. Sphincter tone: normal Neurological: Mental Status: He is alert. Assessment/Plan Diagnoses and all orders for this visit: BPH without obstruction/lower urinary tract symptoms Nocturia Male hypogonadism All available PSA values reviewed, Options discussed. Questions answered. PSA ordered Diet changes for prostate health discussed and educational information given. Pros/Cons of prostate health supplements discussed. Treatment options for LUTS reviewed Discussed timed voiding. Discussed fluid and caffeine intake Treatment options for ED reviewed. Lifestyle change to help prevent UTIs discussed. Encouraged fluid intake. pros/cons of Testosterone replacement reviewed. Replacement options discussed. Questions answered. Available levels reviewed. T level ordered Past Labs reviewed F/U with Labs documented in this encounter [facility] Work Phone: 05-17-2021 Note HNO ID: [id number] Author: Berkley Barnett MA Service: ? Author Type: Pest Technician Type: Progress Notes Filed: 05/17/2021 1:34 PM Note Text: POPULATION HEALTH NAVIGATION OUTREACH Action/FYI PCP OFF BOARDING OUTREACH Attempt # 1 No answer, no VM option to LM - VM full unable to LM Attempt # 2 Sent [employer] (IM[employer])t Message. Encounter closed. Contact made with patient or family member? NO Pt identified by name and : NO Outreach Outcome/Action Unable to reach patient: Phone number not valid / voicemail full Aprivahart message sent Reason for Outreach Attribution: Provider Off-boarding Payer: Payor: ANTHEM / Plan: BLUE ACCESS PPO / Product Type: PPO / Care Gap Reviewed:: Flu vaccine Reminder: Reminder note to check Health Maintenance for items below Health Maintenance items due: COVID-19 VACCINE(1) Never done COLORECTAL CANCER SCREENING Never done SHINGRIX VACCINE(1 of 2) Never done INFLUENZA(1) due on 01/09/2021 Berkley Barnett MA May 17, 2021 1:29 PM [facility] 05-16-2021 Note Patient Outreach (NE TNAV) LAM CLARK ([id number]) 1970 M Date Time Provider Department 05/16/21 BERKLEY BARNETT During your visit today, we recorded the following information about you: Berkley Barnett MA 05/17/2021 1:34 PM Signed POPULATION HEALTH NAVIGATION OUTREACH Action/FYI PCP OFF BOARDING OUTREACH Attempt # 1 No answer, no VM option to LM - VM full unable to LM Attempt # 2 Sent [employer] Message. Encounter closed. Contact made with patient or family member? NO Pt identified by name and : NO Outreach Outcome/Action Unable to reach patient: Phone number not valid / voicemail full Aprivahart message sent Reason for Outreach Attribution: Provider Off-boarding Payer: Payor: STEPHANI / Plan: BLUE ACCESS PPO / Product Type: PPO / Care Gap Reviewed:: Flu vaccine Reminder: Reminder note to check Health Maintenance for items below Health Maintenance items due: COVID-19 VACCINE(1) Never done COLORECTAL CANCER SCREENING Never done SHINGRIX VACCINE(1 of 2) Never done INFLUENZA(1) due on 01/09/2021 Berkley Barnett MA May 17, 2021 1:29 PM Allergies As of Date: 05/16/2021 Noted Allergy Reaction ASA (ASPIRIN) 02/04/2013 7 - Swelling DEPAKOTE (DIVALPROEX SODIUM) 05/19/2005 DILANTIN (PHENYTOIN SODIUM EXTEND*05/19/2005 IBUPROFEN 05/19/2005 NAPROXEN 05/19/2005 TEGRETOL (CARBAMAZEPINE) 05/19/2005 Date Reviewed: 04/25/2020 Reviewed by: Alisha Watt - Fully Assessed Reason for Visit: Population Health Navigation Outreach [3910] Cmt: Offboarding - Dr Hills III Prescriptions as of 05/17/2021 - FLUoxetine HCl (PROZAC) 40 mg capsule Take 1 capsule by mouth once daily. - mirtazapine (REMERON) 30 mg tablet Take 1 tablet by mouth daily at bedtime. - busPIRone (BUSPAR) 5 mg tablet Take 1 tablet by mouth three times daily as needed (anxiety). - gabapentin (NEURONTIN) 100 mg capsule Take 2 capsules by mouth three times daily for 90 days. - EPINEPHrine (EPIPEN) 0.3 mg/0.3 mL (1:1,000) atIn Inject 0.3 mL subcutaneously as directed. Give 1 injection into side of thigh for allergic reaction. Repeat dose in 5-15 min if not improving. - MYSOLINE 250 MG TAB Take one(1) tablet three times daily. - TRILEPTAL 600 MG TAB Take one(1) tablet two(2) times daily. Problem List As Of Date 05/16/2021 Noted Resolved Vitamin D deficiency [E55.9] 05/23/2013 07/21/2014 Fracture of fifth metatarsal bone [S92.353A] 07/11/2013 07/21/2014 Seizure disorder (HCC) [G40.909] 07/21/2014 Hyponatremia [E87.1] 06/12/2016 10/21/2017 Contact with and (suspected) exposure to lead [*07/14/2016 Rotator cuff syndrome [M75.100] 07/14/2016 Obesity, Class I, BMI 30-34.9 [E66.9] 10/21/2017 Idiopathic peripheral neuropathy [G60.9] 04/09/2018 Skin ulcer, limited to breakdown of skin (HCC) *01/11/2019 Hyperlipidemia with target LDL less than 130 [E*01/11/2019 Foot pain, right [M79.671] 01/11/2019 Situational mixed anxiety and depressive disord*01/03/2020 Encounter Status:Closed by BERKLEY BARNETT on 05/17/21 [facility] 07-07-2020 Note Patient Outreach (CO VAMN) LAM CLARK ([id number]) 1970 M Date Time Provider Department 07/07/20 JACKELINE CHERY During your visit today, we recorded the following information about you: Allergies As of Date: 07/07/2020 Noted Allergy Reaction ASA (ASPIRIN) 02/04/2013 7 - Swelling DEPAKOTE (DIVALPROEX SODIUM) 05/19/2005 DILANTIN (PHENYTOIN SODIUM EXTEND*05/19/2005 IBUPROFEN 05/19/2005 NAPROXEN 05/19/2005 TEGRETOL (CARBAMAZEPINE) 05/19/2005 Date Reviewed: 04/25/2020 Reviewed by: Alisha Watt - Fully Assessed Order(s):SARS-COVID VACCINE 1ST DOSE APPT [[id number]] Order #: [id number] FUTURE Prescriptions as of 07/07/2020 Sig: MIRTAZAPINE 30 MG TABLET Take 1 tablet by mouth daily * BUSPIRONE 5 MG TABLET Take 1 tablet by mouth three * FLUOXETINE 40 MG CAPSULE Take 1 capsule by mouth once * EPINEPHRINE 0.3 MG/0.3 ML INJ* Inject 0.3 mL subcutaneously * * MYSOLINE 250 MG TABLET Take one(1) tablet three time* * TRILEPTAL 600 MG TABLET Take one(1) tablet two(2) cristina* Problem List As Of Date 07/07/2020 Noted Resolved Vitamin D deficiency [E55.9] 05/23/2013 07/21/2014 Fracture of fifth metatarsal bone [S92.353A] 07/11/2013 07/21/2014 Seizure disorder (HCC) [G40.909] 07/21/2014 Hyponatremia [E87.1] 06/12/2016 10/21/2017 Contact with and (suspected) exposure to lead [*07/14/2016 Rotator cuff syndrome [M75.100] 07/14/2016 Obesity, Class I, BMI 30-34.9 [E66.9] 10/21/2017 Idiopathic peripheral neuropathy [G60.9] 04/09/2018 Skin ulcer, limited to breakdown of skin (HCC) *01/11/2019 Hyperlipidemia with target LDL less than 130 [E*01/11/2019 Foot pain, right [M79.671] 01/11/2019 Situational mixed anxiety and depressive disord*01/03/2020 Encounter Status:Closed by RADHA, PRODUSER on 07/10/20 [facility] Evaluation note Diagnosis BPH without obstruction/lower urinary tract symptoms- Primary Nocturia Male hypogonadism Other testicular hypofunction documented in this encounter [facility] Work Phone: Evaluation note* Diagnosis Nocturia Male hypogonadism Other testicular hypofunction BPH without obstruction/lower urinary tract symptoms documented in this encounter [facility] Work Phone: Evaluation note* Diagnosis Male hypogonadism Other testicular hypofunction Nocturia BPH without obstruction/lower urinary tract symptoms documented in this encounter [facility] Work Phone: Evaluation note* Diagnosis BPH without obstruction/lower urinary tract symptoms Nocturia Male hypogonadism Other testicular hypofunction documented in this encounter [facility] Work Phone: Summary Purpose Family History No Family History Records FoundNo Family History Records FoundNo Family History Records Found Advance Directives No Advanced Directives Records FoundNo Advanced Directives Records FoundNo Advanced Directives Records Found Additional Source Comments (unrecognized sect ion and content) No Status Records FoundNo Status Records FoundNo Status Records Found INFORMATION SOURCE (unrecogn ized section and content) DATE CREATED AUTHOR 07/01/2021 [facility] DATE CREATED AUTHOR AUTHOR'S ORGANIZ ATION 05/29/2024 [facility] DATE CREATED AUTHOR AUTHOR'S ORGANIZ ATION 10/08/2024 [facility] Reason for Visit (unrecogniz ed section and content) Reason Comments LOW T Reason Comments LAB RESULTS Reason Comments Follow-up FOR RECORDS PERTAINING TO PATIENTS WHO ARE OR HAVE BEEN ENROLLED IN A CHEMICAL DEPENDENCY/SUBSTANCEABUSE PROGRAM, SOME INFORMATION MAY BE OMITTED. This clinical summary was aggregated from multiple sources. Caution should be exercised in using it in the provision of clinical care. This summary normalizes information from multiple sources, and as a consequence, information in this document may materially change the coding, format and clinical context of patient data. In addition, data may be omitted in some cases. CLINICAL DECISIONS SHOULD BE BASED ON THE PRIMARY CLINICAL RECORDS. [employer] [facility]. provides no warranty or guarantee of the accuracy or completeness of information in this document.
== END | disposition home or self-care (01) ==
LOC: MTRAD 16:58
PROVIDERS: PCP Internal Medicine; Referring Provider Physician Assistant; Visit Provider Physician Assistant
DX: R29.6 Repeated falls (principal); Z91.81 History of falling
CPT/HCPCS: 72100

== ENCOUNTER → 2024-11-17 | Outpatient (CLI) | payer OTHER, SELFPAY ==
--- NOTE | 2024-11-17 11:25 | MRI_ITS ---
PROCEDURE: SPINE LUMBAR W/WO CONTRAST 11/17/2024 REASON FOR EXAM: LOW BACK STRAIN W/ LLE RADICULOPATHY TECHNIQUE: SPINE LUMBAR W/WO CONTRAST Multiplanar and multisequence images were obtained without and with intravenous gadolinium-based contrast administration. CONTRAST: IV COMPARISON: The prior radiograph dated 10.31.2024 was reviewed FINDINGS: Mild L5 retrolithesis is seen. Reduced lumbar lordosis. There is no substantial scoliosis. Normal conus medullaris and the cauda roots. L1-2: Normal endplates. Normal disc height, hydration and morphology. Normal bilateral facet joints. Normal central canal and bilateral lateral recesses. Normal bilateral intervertebral neural foramina. L2-3: Normal endplates. Normal disc height, hydration and morphology. Bilateral facet joint arthropathy is seen. Normal central canal and bilateral lateral recesses. Normal bilateral intervertebral neural foramina. L3-4: Normal endplates. Normal disc height and hydration. A 3 mm posterior disc bulge inclined to the left side is seen inducing mild right and moderate left foraminal stenosis. Normal bilateral facet joints. Normal central canal and bilateral lateral recesses. L4-5: Applied disc cage is seen with ORIF changes of L4 and L5 vertebrae and applied posterior device. Moderate bilateral facet joint arthropathy with associated left ligamentum flavum hypertrophy seen inducing mild spinal canal stenosis. Normal bilateral lateral recesses. L5-S1: Reduced height and disc hydration denoting degeneration. A 3 mm posterior disc bulge is seen inducing moderate bilateral foraminal stenosis. Moderate bilateral facet joint arthropathy with associated ligamentum flavum hypertrophy seen inducing moderate spinal canal stenosis. Normal lateral recesses. Normal visualized sacral ala. No enhancing lesions seen. Few lumbar osseous hemangiomata are seen. Normal visualized paraspinous soft tissue structures. MRI/Spine Lumbar W/WO Contrast IMPRESSION: Mild L5 retrolisthesis L3-4: Normal endplates. Normal disc height and hydration. A 3 mm posterior d isc bulge inclined to the left side is seen inducing mild right and moderate left foraminal stenosis. Normal bilateral facet joints. Normal central canal and bilateral lateral rece sses. L4-5: Applied disc cage is seen with ORIF changes of L4 and L5 vertebrae and ap plied posterior device. Moderate bilateral facet joint arthropathy with associated left ligamentum flavum hypertrophy seen induc ing mild spinal canal stenosis. Normal bilateral lateral recesses. L5-S1: Reduced height and disc hydration denoting degeneration. A 3 mm posteri or disc bulge is seen inducing moderate bilateral foraminal stenosis. Moderate bilateral facet joint arthropathy with associated ligamentum flavum hypertrophy seen inducing moderate spinal canal stenosis. Reading [facility]
== END | disposition home or self-care (01) ==
LOC: MRI 11:08
PROVIDERS: PCP Internal Medicine; Referring Provider Physician Assistant; Visit Provider Physician Assistant
DX: S39.012A Strain of muscle, fascia and tendon of lower back, initial encounter (principal); Z98.1 Arthrodesis status; X58.XXXA Exposure to other specified factors, initial encounter
CPT/HCPCS: 72158; A9575

== ENCOUNTER → 2025-01-25 | Outpatient (CLI) | payer BC, SELFPAY ==
[2025-01-25 12:35] LABS: Cholesterol 188 mg/dL (<=200); Low Density Lipoprotein Calc. 101 mg/dL; Triglycerides 117 mg/dL; Very Low Density Lipoprotein 23 mg/dL (5-40); cholesterol:hdl ratio screen 2.97
== END | disposition home or self-care (01) ==
LOC: LAB 11:32
PROVIDERS: PCP Internal Medicine; Referring Provider Internal Medicine; Visit Provider Internal Medicine
DX: Z13.220 Encounter for screening for lipoid disorders (principal)
CPT/HCPCS: 36415; 80061

== ENCOUNTER 2025-01-30 15:30 | Outpatient (RCR) | payer OTHER, BC, SELFPAY ==
--- NOTE | 2024-11-09 13:02 | HP.PTEVAL ---
Patient's Visit Information Visit Information Visit Information: LAM RO is a 54 year old M referred to Physical Therapy by BRANDI Maloney with a diagnosis of Lumbar spine strain. Date of Evaluation: 11/09/24 Physical Therapist: Juan Miguel Izquierdo, PT, ATC Visit Plan Frequency: 2-3x /Week Duration: 4-6 Weeks Plan: Neutral spine stabilization ex's, postural edu, balance and proprio, L LE strengthening, and HEP Subjective Subjective: DOI: 10/31/24. Pt reports he was at work and went to turn around when he tripped over a pallet that someone had put there and he fell, landing on his backside and hitting his back on a tool box. Pt reports he had a difficult time standing up, but with the help of a co worker, her was able to stand up and [facility]. Pt has x-rays performed at that time which revealed no fractures. Pt has an MRI scheduled for December. Pt reports he had his L/S fused in May of 2021. Pt reports his L calf is numb, but denies any other tingling or numbness. Pt reports sleep difficulty secondary to pain. Pt also notes difficulty with getting out of bed at this time secondary to pain. Pt has 3 steps to enter his house that he has to negotiate one step at a time. 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 Pt reports he is still able to do most of his IADL's, but has to perform them much more slowly. 4/10 pain at rest, 9/10 at worst (when he gets out of bed in the morning or when he walks for a prolonged distance.) Pain LBP: Pain Intensity (Out of 10): 4 Pain Intensity Range: 9 Objective Objective: Neuro: L5 dermatome is numb to palpation. All other LE sensation is WNL to light touch. TU sec MMT: L hip flexion 4-/5 and painful with testing. all other B LE's are 5/5 throughout ROM: Pt has minimal limitations with extension. All other motions are WNL. R SB increases pain. Repeated movements: RFIS x 4 reps increased pain significantly. KOFI 4 reps increased pain significantly. Balance/Special Test Scores Oswestry Low Back Score: 20 Goals Goal 1:: Decrease LBP x 50% to aid with sleep Goal Time Frame: 4-6 Weeks Goal 2:: Pt will perform the tug test in under 12 seconds to aid with ambulatory efficiency Goal Time Frame: 4-6 Weeks Goal 3:: Pt will be I with HEP Goal Time Frame: 4-6 Weeks Goal 4:: Pt will be able to return to work and perform all work duties without limitation Goal Time Frame: 4-6 Weeks Rehabilitation Potential Physical Therapy Diagnosis: Pt has LBP, limited lumbar spine ROM, and intolerance for prolonged ambulation secondary to L/S strain Rehabilitation Potential: Good Anticipated Interventions Patient/Client Instruction: Educate patient on: Condition and Plan of Care For the Purpose of:: To improve self management Therapeutic Exercise to Include: Strength training, Endurance training, Balance training, Postural training, Gait and locomotor training and Dynamic Lumbar Stabilization For the Purpose of:: To decrease pain, To improve muscle performance and motor function and To increase tolerance to activity/condition/position Cryotherapy (ice pack, ice massage): Yes For the Purpose of:: To decrease pain Text: Thank you for the opportunity to evaluate your patient. For Medicare and Medicare HMO plans, please review the plan of care and approve it. It will need to be FAXED BACK to us at [phone] for Medicare purposes. For Medicare only, by signing this I certify the plan of care. Please let me know if there are questions or concerns regarding this plan of care. Physician Signature: Date:
--- NOTE | 2024-12-05 10:33 | HP.PTREVAL ---
Re-Evaluation Intro: BRANDI Maloney, It has been my pleasure to treat LAM RO over the last 12 visits for Lumbar spine strain. Please see the progress note below for an update on the physical therapy plan of care! Subjective Subjective: I was really sore over the weekend. I was doing better until the last session. Objective Objective/Function: Pt continues to have sleep difficulty at this time secondary to pain 10/18 TUG 13.5 sec Pt is I with HEP Plan Plan Plan: 12/05/24- Continue with core strengthening once new C-9 is approved Balance/Gait/Functional tests Balance/Special Test Scores Oswestry Low Back Score: 19 Goals Goals Goal 1:: Decrease LBP x 50% to aid with sleep Goal Time Frame: 4-6 Weeks Goal Progress: Not Progressing Goal 2:: Pt will perform the tug test in under 12 seconds to aid with ambulatory efficiency Goal Time Frame: 4-6 Weeks Goal Progress: Progressing Goal 3:: Pt will be I with HEP Goal Time Frame: 4-6 Weeks Goal Progress: Goal Met Goal 4:: Pt will be able to return to work and perform all work duties without limitation Goal Time Frame: 4-6 Weeks Goal Progress: Unable to assess Anticipated Interventions Anticipated Interventions Patient/Client Instruction: Educate patient on: Condition and Plan of Care For the Purpose of:: To improve self management Therapeutic Exercise to Include: Strength training, Endurance training, Balance training, Postural training, Gait and locomotor training and Dynamic Lumbar Stabilization For the Purpose of:: To decrease pain, To improve muscle performance and motor function and To increase tolerance to activity/condition/position Cryotherapy (ice pack, ice massage): Yes For the Purpose of:: To decrease pain Re-Evaluation Ending Re-evaluation ending: Please do not hesitate to contact me at [phone] by phone or if you have questions or concerns regarding this new plan of care! Sincerely, Juan Miguel Izquierdo, PT, ATC
--- NOTE | 2025-01-30 17:39 | HP.PTDCSUM ---
Discharge Summary D/C summary: It has been my pleasure to treat LAM RO referred by BRANDI Maloney, with the diagnosis of Lumbar spine strain for a total of 23 visit(s). Discharge Date: Please see the following information for a summary of their discharge status. Subjective Subjective: Im still have pain in one spot that always stays the same. Pain LBP: Pain Intensity (Out of 10): 4 Overall Improvement % Improvement: 85 Objective Objective/Function: LBP is 4/10 TUG 10 sec Pt is I with HEP Pt has fully returned to work without limitation Rx goals achieved Goals Goal 1:: Decrease LBP x 50% to aid with sleep Goal Progress: Goal Met Goal 2:: Pt will perform the tug test in under 12 seconds to aid with ambulatory efficiency Goal Progress: Goal Met Goal 3:: Pt will be I with HEP Goal Progress: Goal Met Goal 4:: Pt will be able to return to work and perform all work duties without limitation Goal Progress: Goal Met Plan Plan: Discharge to HEP D/C Information d/c sentence: If there are questions or concerns regarding this patient's physical therapy, please feel free to call me at [phone]. Thank you for the referral of this patient. Sincerely, Juan Miguel Izquierdo, PT, ATC Balance/Gait/Functional tests Balance/Special Test Scores Oswestry Low Back Score: 3 Improvement % Improvement: 85
== END 2025-01-30 19:00 | disposition home or self-care (01) ==
LOC: PT 15:30
PROVIDERS: PCP Internal Medicine; Referring Provider Physician Assistant; Visit Provider Physician Assistant
DX: S39.012D Strain of muscle, fascia and tendon of lower back, subsequent encounter (principal)
CPT/HCPCS: 97110; 97161; 97530